=== PATIENT | female | born 1955 | race Caucasian/White ===

== ENCOUNTER → 2016-08-10 16:26 | Outpatient (CLI) | payer MEDICAID ==
[2016-05-16 20:58] VITALS: BMI 24.1
[~2016-08-10 16:26] MED LIST: AMITRIPTYLINE H50 MG PO; ASPIRIN325 MG PO; ATARAX 25 MG TA25 MG PO; BAYER CHEWABLE81 MG PO; CATAPRES0.1 MG PO; DULERA 100 MCG8.8 GM INH; HYDROCHLOROTHIA25 MG PO; HYDROCODONE-APA1 TAB PO; ISOSORBIDE MONO30 M1; ISOSORBIDE MONO30 M1 PO; Imdur PO; LEVAQUIN500 MG PO; LISINOPRIL-HCTZ1 T13 PO; LOPRESSOR25 MG PO; METOPROLOL TART50 MG PO; NEURONTIN 300300 MG PO; NITROSTAT0.4 MG SL; NORVASC5 MG PO; PLAVIX75 MG PO; PRILOSEC20 MG PO; PROTONIX40 MG PO; SOMA350 MG PO; VENTOLIN HFA18 GM INH; XANAX0.25 MG PO; ZANAFLEX4 MG PO
== END | disposition home or self-care (01) ==
LOC: D.MRI 16:00
DX: M75.102 Unspecified rotator cuff tear or rupture of left shoulder, not specified as traumatic (principal)

== ENCOUNTER → 2016-08-21 12:50 | Outpatient (CLI) | payer MEDICAID ==
[2016-05-16 20:58] VITALS: BMI 24.1
== END | disposition home or self-care (01) ==
LOC: D.MRI 12:50
DX: M54.12 Radiculopathy, cervical region (principal)

== ENCOUNTER 2016-08-29 19:24 | Emergency (ER) | payer MEDICAID ==
[2016-05-16 20:58] VITALS: BMI 24.1
== END 2016-08-30 00:27 | disposition home or self-care (01) ==
LOC: D.ER 19:24
DX: R11.2 Nausea with vomiting, unspecified (principal); M19.91 Primary osteoarthritis, unspecified site; S46.912A Strain of unspecified muscle, fascia and tendon at shoulder and upper arm level, left arm, initial encounter; X58.XXXA Exposure to other specified factors, initial encounter; Y93.89 Activity, other specified; Y92.89 Other specified places as the place of occurrence of the external cause; M19.90 Unspecified osteoarthritis, unspecified site; F17.200 Nicotine dependence, unspecified, uncomplicated

== ENCOUNTER 2016-11-27 19:22 | Observation (INO) | payer MEDICAID ==
[~2016-11-27] VITALS: Ht 162.6 cm; Wt 61.8 kg
--- NOTE | ~2016-11-27 | HEMODYNAMI ---
PATIENT:IDALIA DALAL MEDICAL RECORD: [id number] : 51 LOCATION:[facility] D.6 ADMISSION DATE: 11/27/16 Generatedon:11/30/20169:02 Patient name: IDALIA DALAL Patient #: [id number] SSN: [id number] : 1955 Date of study: 11/30/2016 Page: Of Hemodynamic Procedure Report Patient Data Patient Demographics Procedure consent was obtained First Name: IDALIA Gender: Female Last Name: KATLIN : 1955 [facility] Initial: K Age: 61 year(s) Patient #: [id number] Race: SSN: [id number] Additional ID: [id number] Contact details Address: [address] [place] [address] State: [place] City: [facility] Zip code: [address] Past Medical History History of disease Date Diagnosis Comments CAD Allergies Allergen Reaction Date Comments Reported Codeine 05/13/2014 Other allergy 03/29/2015 BUSPAR, LYRICA IMMUNIZATIONS Other allergy 05/17/2016 Iodine, Bispar, Lyrica Iodine 11/30/2016 Codeine 11/30/2016 Other allergy 11/30/2016 BUSPIRONE (BUSPAR), INFLUENZA VIRUS VACCINE, PNEUMOCOCCAL VACCINE, DIAZAPAM, PREGABALIN (LYRICA) Admission Admission Data Admission Date: 11/27/2016 Admission Time: 21:26 Room #: D.2116 Height (in.): 64 BSA: 1.6 (m2) Height (cm.): 162.56 BMI: 21.46 (kg/m2) Weight (lbs.): 125 Weight (kg.): 56.7 Lab Results Lab Result Date: 11/30/2016 Lab Result Time: 0:00 Biochemistry Name Units Result Min Max BUN mg/dl 8 --(*---)-- 7 18 Creatinine mg/dl 0.7 --(*---)-- 0.6 1.3 CBC Name Units Result Min Max Hemoglobin g/dl 11.4 *-(----)-- 13.5 17.5 Procedure Procedure Types Cath Procedure Diagnostic Procedure [facility] w/Coronaries FFR/IVUS Intra-Coronary IVUS Initial Miscellaneous Procedures Moderate Sedation up to 30 minutes Procedure Description Procedure Date Procedure Date: 11/30/2016 Procedure Start Time: 8:36 Procedure End Time: 9:02 Procedure Staff Name Function Keon Francisco MD Performing Physician Saida Singh RN Nurse Burak Nieto RT Monitor Mukund Nicholas RT Scrub Procedure Data Cath Procedure Fluoroscopy Diagnostic fluoroscopy Total fluoroscopy Time: 3 time: 3 min min Diagnostic fluoroscopy Total fluoroscopy dose: 307 dose: 307 mGy mGy Contrast Material Contrast Material Type Amount (ml) Isovue 300 91 Entry Location Entry Primary Successful Side Size Upsize Upsize Entry Closure Succes sful Closure Location (Fr) 1 (Fr) 2 (Fr) Remarks Device Remarks Femoral Right 5 Fr 6 Fr Exoseal artery Short Estimated blood loss: 10 ml Diagnostic catheters Device Type Used For End Catheter Placement Cordis 5Fr JL 4.0 Procedure Catheter (MP) Cordis 5Fr 3DRC Catheter Procedure (MP) Cordis 5Fr Pigtail Procedure Catheter (MP) Procedure Complications No complications Procedure Medications Medication Administration Route Dosage Oxygen NC 2 l/min Heparin Flush Bag added to field 2 bags (1000units/500ml NS) Lidocaine 2% added to field 20 Versed I.V. 1 mg Fentanyl I.V. 50 mcg Versed I.V. 1 mg Fentanyl I.V. 50 mcg Versed I.V. 0.5 mg Fentanyl I.V. 50 mcg Heparin Bolus I.V. 5700 units Hemodynamics Rest BSA: 1.6 (m2) HGB: 11.4 (g/dl) O2 Consumption: Estimated: 154.76 (ml/min) O2 Con sumption indexed: Estimated:96.72 (ml/min/m) Heart Rate: 77 (bpm) Pressure Samples Time Site Value (mmHg) Purpose Heart Use Rate(bpm) 8:40 AO 108/58(80) Snapshot 86 8:44 LV 115/-14,6 Snapshot 90 8:45 AO 120/55(81) Pullback 87 8:45 LV 121/-11,5 Pullback 87 8:49 AO 101/50(73) Snapshot 88 Gradients Valve Time Site 1 Site 2 Mean SEP/DFP Peak To Heart Use (mmHg) (sec/min) Peak Rate (mmHg) (bpm) Aortic 8:45 LV AO 13 9 1 87 121/-11,5 120/55(81) Calculations Valve P-P Mean Valve Index Valve Source Name Gradient Area Flow (cm2) Aortic 1 13 1 13 Snapshots Pre Cath Intra NCS Post Cath Vital Signs Time Heart Resp SPO2 etCO2 [id number] NIBP (mmHg) Rhythm Pain Status Sed ation Rate (ipm) (%) (mmHg) (mmHg) Level (bpm) 8:22:42 75 16 99 0 0 139/82(109) NSR 5 (11) , Very 10( A) distressing 8:26:54 80 16 99 0 0 138/78(99) NSR 5 (11) , Very 10( A) distressing 8:31:10 77 16 100 0 0 117/62(104) NSR 2 (11) , 10( A) Uncomfortable 8:35:16 76 16 98 0 0 131/67(90) NSR 0 (11) , No 10( A) pain 8:39:28 78 18 96 0 0 119/65(87) NSR 0 (11) , No 9(A ) pain 8:43:35 87 17 97 0 0 122/62(95) NSR 0 (11) , No 9(A ) pain 8:47:43 88 17 94 0 0 116/67(90) NSR 0 (11) , No 9(A ) pain 8:51:53 86 19 96 0 0 108/57(83) NSR 0 (11) , No 9(A ) pain 8:55:57 86 17 98 0 0 116/64(89) NSR 0 (11) , No 9(A ) pain 8:58:49 84 18 97 0 0 120/65(89) NSR 0 (11) , No 9(A ) pain Medications Time Medication Route Dose Verified Delivered Reason Notes Effectiveness by by 8:21:03 Oxygen NC 2 Keon Saida Per physician l/min Luis Antonio Singh RN 8:21:15 Heparin Flush added 2 Keon Keon used for Bag to bags Luis Antonio Francisco MD procedure (1000units/500ml field NS) 8:21:29 Lidocaine 2% added 20ml Keon Keon used for to vial Luis Antonio Francisco MD procedure field 8:29:50 Versed I.V. 1 mg Keon Saida for sedation Luis Antonio Singh RN 8:29:57 Fentanyl I.V. 50 Keon Saida for sedation mcg Luis Antonio Singh RN 8:31:42 Versed I.V. 1 mg Keon Saida for sedation Luis Antonio Singh RN 8:31:44 Fentanyl I.V. 50 Keon Saida for sedation mcg Luis Antonio Singh RN 8:36:21 Versed I.V. 0.5 Keon Saida for sedation mg Luis Antonio Singh RN 8:36:29 Fentanyl I.V. 50 Keon Saida for sedation mcg Luis Antonio Singh RN 8:47:01 Heparin Bolus I.V. 5700 Keon Saida for dose units Luis Antonio Singh RN anticoagulation verified wtih dr francisco Procedure Log Time Note 8:00:40 Burak GILLETTE(R) sent for patient. Start room use. 8:05:40 Time tracking: Regular hours 8:05:45 Plan of Care:Hemodynamics will remain stable., Cardiac rhythm will remain stable., Comfort level will be maintained., Respiratory function will remain adequate., Patient/ family verbilizes understanding of procedure., Procedure tolerated without complication., Recovers from procedure without complications.. 8:06:09 H&P Date Dictated: 11/29/2016 Within 30 days and on chart.. 8:06:12 Is the patient allergic to Iodine/contrast media? Yes. 8:06:14 Was the patient premedicated? Yes 8:06:22 Lab results completed and on chart. 8:14:38 ACC Patient presents with Unstable Angina CCS Anginal Class 3--Marked limitation of physical activity, angina occurs with ordinary activity.. 8:14:40 Diagnostic Cath status Urgent 8:14:45 Patient received from PCU to CCL 1 Alert and oriented. Tansferred to table in Supine position. 8:14:46 Warm blankets applied, and demetrius hugger turned on for patient comfort. 8:14:46 Correct patient and procedure confirmed by team. 8:14:47 Signed procedure consent form obtained from patient. 8:14:49 ECG and BP/O2 sat monitors applied to patient. 8:17:25 Pre-procedure instructions explained to patient. 8:17:26 Pre-op teaching completed and patient verbalized understanding. 8:17:29 Family unavailable. 8:17:32 Patient NPO since Midnight. 8:17:36 Is patient on blood thinner?No 8:17:38 Patient diabetic? Yes. 8:17:38 If diabetic: On Metformin? Yes 8:17:53 Last dose of Metformin unknown. 8:21:03 Oxygen 2 l/min NC was administered by Saida Singh RN; Per physician; 8:21:15 Heparin Flush Bag (1000units/500ml NS) 2 bags added to field was administered by Keon Francisco MD; used for procedure; 8:21:29 Lidocaine 2% 20ml vial added to field was administered by eKon Francisco MD; used for procedure; 8:21:32 Vital chart was started 8:22:37 Patient not . Patient is over age 55. 8:22:41 Baseline sample Acquired. 8:23:08 Rhythm: sinus rhythm 8:23:11 Full Disclosure recording started 8:23:17 Previous problem with sedation/anesthesia? No ? 8:23:18 Snore? Yes 8:23:19 Sleep apnea? Yes 8:23:20 Deviated septum? No 8:23:21 Opens mouth fully? Yes 8:23:21 Sticks out tongue? Yes 8:23:29 Airway obstruction? Yes COPD, Asthma 8:23:33 Dentures? Yes IN 8:23:38 Pre procedure: right dorsailis pedis pulse 1+ Palpable, but thready & weak; easily obliterated 8:23:57 Unable to go radial due to broken arm. 8:24:01 Patient pain scale 0/10 ?. 8:25:01 IV patent on arrival in the right chest with 0.9% NaCl at [facility]. 8:25:53 Lab Result : BUN 8 mg/dl 8:25:53 Lab Result : Hemoglobin 11.4 g/dl 8:25:53 Lab Result : Creatinine 0.7 mg/dl 8:25:58 Right groin area was prepped with chlora-prep and draped in sterile fashion 8:25:59 Alarms reviewed by R. N. 8:26:00 Sharps counted by scrub and verified by R.N. 8:29:15 --------ALL STOP TIME OUT------ 8:29:16 Final Timeout: patient, procedure, and site verified with staff and physician. All members of the team are in agreement. 8:29:18 Right groin site verified by team. 8:29:21 Physical assessment completed. ASA score P 2 - A patient with mild systemic disease as per Keon Francisco MD. 8:29:25 Sedation plan: IV Moderate Sedation Versed, Fentanyl 8:29:50 Versed 1 mg I.V. was administered by Saida Singh RN; for sedation; 8:29:57 Fentanyl 50 mcg I.V. was administered by Saida Singh RN; for sedation; 8:31:33 Patient allergic to Iodine 8:31:42 Versed 1 mg I.V. was administered by Saida Singh RN; for sedation; 8:31:42 Patient allergic to Codeine 8:31:44 Fentanyl 50 mcg I.V. was administered by Saida Singh RN; for sedation; 8:33:36 Patient allergic to Other allergy BUSPIRONE (BUSPAR), INFLUENZA VIRUS VACCINE, PNEUMOCOCCAL VACCINE, DIAZAPAM, PREGABALIN (LYRICA) 8:36:21 Versed 0.5 mg I.V. was administered by Saida Singh RN; for sedation; 8:36:29 Fentanyl 50 mcg I.V. was administered by Saida Singh RN; for sedation; 8:36:40 Procedure started. 8:36:46 Local anesthetic to right femoral artery with Lidocaine 2% by Keon Francisco MD.INITIAL ACCESS ONLY 8:36:48 Zero performed for pressure channel P1 8:36:57 Use device set Femoral Dx 8:36:59 Tegaderm 4 x 4 opened to sterile field. 8:37:00 Acist Hand Control opened to sterile field. 8:37:00 Acist Manifold opened to sterile field. 8:37:02 Acist Syringe opened to sterile field. 8:37:02 Bag Decanter opened to sterile field. 8:37:02 Medline Cath Pack opened to sterile field. 8:37:03 Terumo 5Fr Vale Sheath opened to sterile field. 8:37:03 St Fazal 260cm J .035 wire opened to sterile field. 8:37:04 Diagnostic Infinity 5Fr Multipack catheter opened to sterile field. 8:37:23 Patient Height : 64 cm 8:37:25 Patient Weight : 125 kg 8:38:56 A 5 Fr sheath was inserted into the Right Femoral artery 8:39:49 A Cordis 5Fr JL 4.0 Catheter (MP) was advanced over the wire and used for Procedure. 8:40:43 LCA angiography performed. 8:41:52 Catheter exchanged over wire. 8:41:57 A Cordis 5Fr 3DRC Catheter (MP) was advanced over the wire and used for Procedure. 8:42:32 RCA angiography performed. 8:42:36 Catheter exchanged over wire. 8:42:56 Terumo 6Fr Vale Sheath opened to sterile field. 8:42:56 Clean Engines Helm 2 J-tip 300cm 0.014 guide wir opened to sterile field. 8:42:57 High Pressure Extension Tubing (Luis Antonio) opened to sterile field. 8:42:57 Merit BasixCompak Inflation Kit opened to sterile field. 8:42:57 [place] Eag[place] IVUS Catheter opened to sterile field. 8:43:04 A Cordis 5Fr Pigtail Catheter (MP) was advanced over the wire and used for Procedure. 8:44:51 LV angiography performed. 8:45:02 LV gram done using SERNA 8:45:09 EF : 60 % 8:45:11 LV hemodynamics recorded. 8:45:14 Injector settings: Ml/sec: 10, Volume: 20, 8:45:16 Catheter exchanged over wire. 8:45:59 Cordis 6FR XBLAD 3.5 guide catheter opened to sterile field. 8:46:58 Sheath upsized to a 6 Fr Short. 8:47:01 Heparin Bolus 5700 units I.V. was administered by Saida Singh RN; for anticoagulation; dose verified wtih dr francisco 8:47:09 6 Fr XBLAD 3.5 guide catheter was inserted over the wire 8:48:16 BMW wire advanced. 8:49:39 Wire advanced across lesion. 8:50:02 IVUS catheter advanced over wire. 8:52:03 IVUS pass to LAD lesion performed. 8:52:05 IVUS catheter removed over wire. 8:55:44 Wire removed. 8:55:45 Guide catheter removed. 8:55:51 Cordis 6Fr Exoseal opened to sterile field. 8:56:01 Sheath removed intact; hemostasis achieved with Exoseal to the Right Femoral artery. 8:56:04 Procedure ended.(Physican Out) 8:56:23 Fluoroscopy time 03.00 minutes. 8:56:28 Fluoroscopy dose: 307 mGy 8:56:28 Flurop Dose total: 307 8:56:31 Contrast amount:Isovue 300 91ml. 8:56:40 Sharps counted by scrub and verified by R.N. 8:57:01 Insertion/operative site no bleeding no hematoma. 8:57:07 Post-op/insertion site Right Femoral artery dressed using a 4 x 4 and Tegaderm. 8:57:08 Post Procedure Pulses reassessed and unchanged 8:57:11 Post-procedure physical assessment completed. ASA score P 2 - A patient with mild systemic disease as per Keon Francisco MD. 8:57:14 Post procedure rhythm: unchanged. 8:57:16 Estimated blood loss: 10 ml 8:57:18 Post procedure instruction explained to patient.Patient verbalizes understanding. 8:57:19 Patient needs reinforcement of post procedure teaching. 8:57:57 Procedure type changed to Cath procedure, Diagnostic procedure, LHC, LHC w/Coronaries, FFR/IVUS, Intra-Coronary IVUS Initial, Miscellaneous Procedures, Moderate Sedation up to 30 minutes 8:58:05 Procedure Complication : No complications 8:58:33 Procedure and supply charges have been captured, reviewed, submitted and are correct. 9:02:24 Vital chart was stopped 9:02:25 See physician's report for complete and final results. 9:02:28 Report given to PCU. 9:02:32 Patient transfered to PCU with Bed. 9:02:34 Procedure ended. 9:02:34 Full Disclosure recording stopped 9:02:39 End room use (Document Last) Device Usage Item Name Manufacture Quantity Catalog Hospital Part Current Minimal L ot# / Number Charge Number Stock Stock Serial# Code Tegaderm 4 3M 1 [id number] [id number] 750863 793674 5 x 4 Acist Hand Acist 1 69496 699488 745721 345237 5 Control Medical Systems Inc Acist Acist 1 49668 475894 428709 410767 5 Manifold Medical Systems Inc Acist Acist 1 73033 730138 197576 333633 20 Syringe Medical Systems Inc Bag Microtek 1 2002S 952145 26522 197228 5 Decanter Medical Inc. Medline Cardinal 1 [id number] 385096 31477 211134 5 Cath Pack Health Terumo 5Fr Terumo 1 [id number] 670950 877363 748030 [address]al St Fazal 1 349123 547437 659958 294389 30 260cm J .035 wire Diagnostic Cardinal 1 [id number] 859591 55541 437099 30 Infinity Health 5Fr Multipack catheter Cordis 5Fr Cardinal 1 635363 5 JL 4.0 Health Catheter (MP) Cordis 5Fr Cardinal 1 099621 5 3DRC Health Catheter (MP) Terumo 6Fr Terumo 1 GPH006 873868 168308 136210 40 Vale Sheath Dan BMW Dan 1 [id number] 008566 725933 817829 5 Helm 2 Vascular J-tip 300cm 0.014 guide wir High Merit 1 [id number] 274878 45346 586598 10 Pressure Medical Extension Tubing (Francisco) Merit Merit 1 EN3300 283950 732634 961026 15 Achieve X Medical Inflation Kit [place]ton [place] 1 [id number] 154258 421180 145806 8 [place] IVUS Catheter Cordis 5Fr Cardinal 1 032473 5 Pigtail Health Catheter (MP) Cordis 6FR Cardinal 1 [id number] 567618 238160 272202 10 XBLAD 3.5 Health guide catheter Cordis 6Fr Cardinal 1 EX600 801337 727359 319564 10 [facility] Signature Audit [place] Stage Time Signature Unsigned Intra-Procedure 11/30/2016 Burak Nieto 9:02:52 AM RT(R) Signatures Monitor : Burak Nieto RT Signature : Date : Time : [facility] [address] [place] [address]
[2016-11-27 20:13] LABS: BASOPHILS 0.5 % (0-2); EOSINOPHILS 3.3 % (0-7); HEMATOCRIT 35.2 % (36.0-48.0); HEMOGLOBIN 11.3 g/dL (12-16); IMMATURE GRANULOCYTES 0.1 % (0-5); LYMPHOCYTES 45.8 % (15-50); MCH 26.3 pg (26.0-34.0); MCHC 32.1 g/dL (31.0-37.0); MCV 82.1 fL (80.0-100.0); MEAN PLATELET VOLUME 10.8 fL (7.4-10.4); MONOCYTES 7.9 % (2-11); NEUTROPHILS 42.4 % (40-80); RBC 4.29 10x6/uL (4.00-5.40); RDW 16.1 % (11.5-14.5); WBC 8.6 10x3/uL (4.8-10.8)
[2016-11-27 20:29] LABS: ALBUMIN 3.1 g/dL (3.4-5.0); ALKALINE PHOSPHATASE 138 U/L (46-116); ALT (SGPT) 87 U/L (10-68); BILIRUBIN - TOTAL 0.37 mg/dL (0.2-1.3); CALC OSMOLALITY 275 mosm/kg (275-300); CALCIUM 8.7 mg/dL (8.5-10.1); CARBON DIOXIDE 23.8 mmol/L (21.0-32.0); CHLORIDE - SERUM 105 mmol/L (98-107); CREATININE - SERUM 0.7 mg/dL (0.6-1.3); GLUCOSE 103 mg/dL (74-106); POTASSIUM - SERUM 3.2 mmol/L (3.5-5.1); PROTEIN - SERUM 7.9 g/dL (6.4-8.2); SODIUM 139 mmol/L (136-145); UREA NITROGEN 8 mg/dL (7-18); eGFR NON AFRICAN AMERICAN 90 mL/min (90-120)
[2016-11-27 20:37] LABS: PLATELET COUNT 139 10x3/uL (130-400)
[2016-11-27 20:40] LABS: CHOL - HDL RATIO 3.8 ratio (2.3-4.1); CHOLESTEROL, TOTAL 135 mg/dL (0-200); CKMB 0.5 U/L (0.0-3.6); CREATINE KINASE 53 UL (21-215); HDL CHOLESTEROL 36 mg/dL (32-96); LDL CHOLESTEROL 69 mg/dL (0-100); LDL-HDL RATIO 1.9 ratio (1.5-3.5); TRIGLYCERIDE 152 mg/dL (30-200); TROPONIN-I < 0.017 ng/mL (0.000-0.060)
[2016-11-28 01:26] LABS: CKMB 0.5 U/L (0.0-3.6); CREATINE KINASE 52 UL (21-215)
[2016-11-28 01:27] LABS: TROPONIN-I < 0.017 ng/mL (0.000-0.060)
--- NOTE | 2016-11-28 02:19 | NUR ---
PT C/O CHEST PAIN, CHARLIE HAS NITRO TRANSDERMAL PATCH ON. REQUESTED PAIN MED FOR PATIENT. ORDERS RECIEVED.
[2016-11-28 06:38] LABS: CKMB 0.3 U/L (0.0-3.6); CREATINE KINASE 42 UL (21-215)
[2016-11-28 06:45] LABS: TROPONIN-I < 0.017 ng/mL (0.000-0.060)
[2016-11-28 07:55] VITALS: BP 113/62; Ht 162.6 cm; Wt 61.8 kg
[2016-11-28 08:00] VITALS: BP 141/66
[2016-11-28 11:51] LABS: ALKALINE PHOSPHATASE 130 U/L (46-116); ALT (SGPT) 83 U/L (10-68); BILIRUBIN - TOTAL 0.41 mg/dL (0.2-1.3); CALC OSMOLALITY 279 mosm/kg (275-300); CALCIUM 8.8 mg/dL (8.5-10.1); CARBON DIOXIDE 21.9 mmol/L (21.0-32.0); CHLORIDE - SERUM 107 mmol/L (98-107); CREATININE - SERUM 0.7 mg/dL (0.6-1.3); GLUCOSE 108 mg/dL (74-106); POTASSIUM - SERUM 3.6 mmol/L (3.5-5.1); PROTEIN - SERUM 7.4 g/dL (6.4-8.2); SODIUM 141 mmol/L (136-145); UREA NITROGEN 8 mg/dL (7-18); eGFR NON AFRICAN AMERICAN 90 mL/min (90-120)
[2016-11-28 12:00] VITALS: BP 114/51
[2016-11-28 12:33] LABS: CKMB 0.3 U/L (0.0-3.6); CREATINE KINASE 39 UL (21-215)
[2016-11-28 12:34] LABS: TROPONIN-I < 0.017 ng/mL (0.000-0.060)
--- NOTE | 2016-11-28 13:37 | NUR ---
TELEMETRY SR. CALL LIGHT IN REACH. EKG COMPLETED AT BS. WILL CONT. PLAN OF CARE.
[2016-11-28 16:00] VITALS: BP 115/78
--- NOTE | 2016-11-28 19:00 | NUR ---
INITIAL ROUNDS MADE. PT SITTING UP IN BED WATCHING TV WITH FAMILY AT BEDSIDE. NO NEEDS OR C/O VOICED AT THIS TIME. REQUESTING PAIN SHOT WHEN DUE. CALL LIGHT IN REACH. WILL CONT TO MONITOR.
[2016-11-28 21:41] VITALS: BP 128/77
[2016-11-29 01:03] VITALS: BP 142/71
--- NOTE | 2016-11-29 03:03 | NUR ---
RESTING WELL WITH EYES CLOSED, CONT TO MONITOR.
[2016-11-29 05:36] VITALS: BP 127/64
[2016-11-29 06:58] LABS: BASOPHILS 0.3 % (0-2); EOSINOPHILS 3.5 % (0-7); HEMATOCRIT 35.1 % (36.0-48.0); HEMOGLOBIN 11.4 g/dL (12-16); IMMATURE GRANULOCYTES 0.2 % (0-5); LYMPHOCYTES 47.1 % (15-50); MCH 26.6 pg (26.0-34.0); MCHC 32.5 g/dL (31.0-37.0); MCV 81.8 fL (80.0-100.0); MEAN PLATELET VOLUME 10.8 fL (7.4-10.4); MONOCYTES 7.2 % (2-11); NEUTROPHILS 41.7 % (40-80); PLATELET COUNT 127 10x3/uL (130-400); RBC 4.29 10x6/uL (4.00-5.40)
[2016-11-29 07:22] LABS: ALBUMIN 2.8 g/dL (3.4-5.0); ALKALINE PHOSPHATASE 131 U/L (46-116); ALT (SGPT) 86 U/L (10-68); BILIRUBIN - TOTAL 0.38 mg/dL (0.2-1.3); CALC OSMOLALITY 274 mosm/kg (275-300); CALCIUM 8.5 mg/dL (8.5-10.1); CARBON DIOXIDE 24.9 mmol/L (21.0-32.0); CHLORIDE - SERUM 104 mmol/L (98-107); CREATININE - SERUM 0.7 mg/dL (0.6-1.3); GLUCOSE 106 mg/dL (74-106); POTASSIUM - SERUM 4.1 mmol/L (3.5-5.1); PROTEIN - SERUM 6.9 g/dL (6.4-8.2); SODIUM 138 mmol/L (136-145); UREA NITROGEN 10 mg/dL (7-18); eGFR NON AFRICAN AMERICAN 90 mL/min (90-120)
[2016-11-29 08:00] VITALS: BP 138/64
--- NOTE | 2016-11-29 08:58 | NUR ---
CONSENTS SIGNED FOR [facility]. MORPHINE GIVEN FOR C/O C/P. WILL CONT. PLAN OF CARE.
[2016-11-29 12:00] VITALS: BP 132/65
[2016-11-29 19:00] VITALS: BP 142/63
--- NOTE | 2016-11-29 20:03 | NUR ---
RESUMED CARE OF PT, LYING IN BED RESPIRATIONS EVEN AND UNLABORED ON ROOM AIR. MORPHINE GIVEN IVP FOR CHEST PAIN 7:10. 79 SR ON TELEMETRY. RIGHT BREAST SALINE LOCKED. NO FURTHER NEEDS AT THIS TIME. CALL LIGHT IN REACH. SEE NURSE ASSESSMENT.
[2016-11-30] VITALS: BP 146/66
--- NOTE | 2016-11-30 03:11 | NUR ---
FLARE WORKER AT BEDSIDE TO OBTAIN VITALS, CALL LIGHT IN REACH. WILL CONTINUE TO MONITOR.
[2016-11-30 04:00] VITALS: BP 128/56
[2016-11-30 05:07] LABS: BASOPHILS 0.1 % (0-2); EOSINOPHILS 0 % (0-7); HEMATOCRIT 35.1 % (36.0-48.0); HEMOGLOBIN 11.3 g/dL (12-16); IMMATURE GRANULOCYTES 0.3 % (0-5); LYMPHOCYTES 17.5 % (15-50); MCH 26.4 pg (26.0-34.0); MCHC 32.2 g/dL (31.0-37.0); MEAN PLATELET VOLUME 11.4 fL (7.4-10.4); MONOCYTES 0.6 % (2-11); NEUTROPHILS 81.5 % (40-80); RBC 4.28 10x6/uL (4.00-5.40); RDW 15.4 % (11.5-14.5); WBC 6.8 10x3/uL (4.8-10.8)
[2016-11-30 05:10] LABS: PLATELET COUNT 153 10x3/uL (130-400)
[2016-11-30 05:20] LABS: ANION GAP 12.5 mmol/L (8-16); BILIRUBIN - TOTAL 0.39 mg/dL (0.2-1.3); CALCIUM 9.1 mg/dL (8.5-10.1); CARBON DIOXIDE 25.9 mmol/L (21.0-32.0); POTASSIUM - SERUM 4.4 mmol/L (3.5-5.1); PROTEIN - SERUM 7.9 g/dL (6.4-8.2)
[2016-11-30 05:29] LABS: CREATININE - SERUM 0.9 mg/dL (0.6-1.3)
--- NOTE | 2016-11-30 06:38 | NUR ---
NO CHANGES FROM PREVIOUS ASSESSMET, CALL LIGHT IN REACH. WILL CONTINUE TO MONITOR.
[2016-11-30 08:15] VITALS: BP 99/63
== END 2016-11-30 18:05 | disposition home or self-care (01) ==
LOC: D.ER 19:22 → D.M2 21:26 → OBSVTIME 21:26 → D.M2 11-28 00:04
PROVIDERS: Emergency Medicine; ADMIT Internal Medicine Cardiovascular Disease
DX: I25.110 Atherosclerotic heart disease of native coronary artery with unstable angina pectoris (principal); Z95.5 Presence of coronary angioplasty implant and graft; J44.9 Chronic obstructive pulmonary disease, unspecified; I11.0 Hypertensive heart disease with heart failure; I50.9 Heart failure, unspecified; Z86.73 Personal history of transient ischemic attack (TIA), and cerebral infarction without residual deficits; K74.60 Unspecified cirrhosis of liver; F41.9 Anxiety disorder, unspecified; F32.9 Major depressive disorder, single episode, unspecified

== ENCOUNTER 2016-12-20 14:03 | Emergency (ER) | payer MEDICAID ==
[2016-11-28 07:55] VITALS: BMI 21.5
[2016-12-20 14:46] LABS: BASOPHILS 0.2 % (0-2); EOSINOPHILS 0.9 % (0-7); HEMATOCRIT 39.4 % (36.0-48.0); HEMOGLOBIN 13.2 g/dL (12-16); IMMATURE GRANULOCYTES 0.2 % (0-5); LYMPHOCYTES 21.6 % (15-50); MCHC 33.5 g/dL (31.0-37.0); MCV 80.7 fL (80.0-100.0); MEAN PLATELET VOLUME 10.7 fL (7.4-10.4); MONOCYTES 5.3 % (2-11); NEUTROPHILS 71.8 % (40-80); RBC 4.88 10x6/uL (4.00-5.40); RDW 16.2 % (11.5-14.5); WBC 12.4 10x3/uL (4.8-10.8)
[2016-12-20 14:47] LABS: PLATELET COUNT 188 10x3/uL (130-400)
[2016-12-20 14:55] LABS: APTT 30.4 SECONDS (22.8-39.4); INR 1.14 (0.85-1.17); PROTIME 14.5 SECONDS (11.6-15.0)
[2016-12-20 15:12] LABS: APPEARANCE CLEAR (CLEAR); BILIRUBIN NEGATIVE (NEGATIVE); COLOR YELLOW (YELLOW); GLUCOSE NEGATIVE (NEGATIVE); KETONE NEGATIVE (NEGATIVE); LEUKOCYTE ESTERASE NEGATIVE (NEGATIVE); NITRITE NEGATIVE (NEGATIVE); PROTEIN TRACE mg/dL (NEGATIVE); UROBILINOGEN NORMAL (NORMAL)
[2016-12-20 15:17] LABS: ALBUMIN 3.2 g/dL (3.4-5.0); ALKALINE PHOSPHATASE 156 U/L (46-116); ALT (SGPT) 63 U/L (10-68); BILIRUBIN - TOTAL 0.54 mg/dL (0.2-1.3); CALC OSMOLALITY 278 mosm/kg (275-300); CALCIUM 8.3 mg/dL (8.5-10.1); CARBON DIOXIDE 22.1 mmol/L (21.0-32.0); CHLORIDE - SERUM 103 mmol/L (98-107); CREATINE KINASE 39 UL (21-215); CREATININE - SERUM 0.7 mg/dL (0.6-1.3); GLUCOSE 135 mg/dL (74-106); LIPASE 131 U/L (73-393); POTASSIUM - SERUM 3.2 mmol/L (3.5-5.1); PROTEIN - SERUM 8.3 g/dL (6.4-8.2); SODIUM 140 mmol/L (136-145); UREA NITROGEN 8 mg/dL (7-18); eGFR NON AFRICAN AMERICAN 90 mL/min (90-120)
[2016-12-20 15:24] LABS: UDS - AMPHET NEGATIVE QUAL (NEGATIVE); UDS - BARB NEGATIVE QUAL (NEGATIVE); UDS - BENZO NEGATIVE QUAL (NEGATIVE); UDS - COCAINE NEGATIVE QUAL (NEGATIVE); UDS - METH NEGATIVE QUAL (NEGATIVE); UDS - OPIATE POSITIVE QUAL (NEGATIVE); UDS - PCP NEGATIVE QUAL (NEGATIVE); UDS - THC NEGATIVE QUAL (NEGATIVE)
[2016-12-20 15:48] LABS: CKMB 0.2 U/L (0.0-3.6); TROPONIN-I 0.055 ng/mL (0.000-0.060)
== END 2016-12-20 17:49 | disposition home or self-care (01) ==
LOC: D.ER 14:03
PROVIDERS: Emergency Medicine
DX: K52.9 Noninfective gastroenteritis and colitis, unspecified (principal); E87.6 Hypokalemia; K21.9 Gastro-esophageal reflux disease without esophagitis; J44.9 Chronic obstructive pulmonary disease, unspecified; G40.909 Epilepsy, unspecified, not intractable, without status epilepticus; G47.00 Insomnia, unspecified; R00.0 Tachycardia, unspecified

== ENCOUNTER → 2016-12-29 15:29 | Outpatient (CLI) | payer MEDICAID ==
[2016-11-28 07:55] VITALS: BMI 21.5
== END | disposition home or self-care (01) ==
LOC: D.MRI 12-26 10:00
DX: M75.42 Impingement syndrome of left shoulder (principal)

== ENCOUNTER 2017-01-27 03:32 | Inpatient (IN) | payer MEDICAID ==
[~2017-01-27] VITALS: Ht 162.6 cm; Wt 68.1 kg
--- NOTE | ~2017-01-27 | HEMODYNAMI ---
PATIENT:IDALIA DALAL MEDICAL RECORD: [id number] : 51 LOCATION[id number] ADMISSION DATE: 01/27/17 Generatedon:01/30/201710:43 Patient name: IDALIA DALAL Patient #: [id number] SSN: [id number] : 1955 Date of study: 01/30/2017 Page: Of Hemodynamic Procedure Report Patient Data Patient Demographics Procedure consent was obtained First Name: IDALIA Gender: Female Last Name: KATLIN : 1955 [facility] Initial: K Age: 61 year(s) Patient #: [id number] Race: SSN: [id number] Additional ID: [id number] Contact details Address: [address] [place] [address] State: [place] City: [facility] Zip code: [address] Past Medical History History of disease Date Diagnosis Comments CAD Allergies Allergen Reaction Date Comments Reported Codeine 05/13/2014 Other allergy 03/29/2015 BUSPAR, LYRICA IMMUNIZATIONS Other allergy 05/17/2016 Iodine, Bispar, Lyrica Iodine 11/30/2016 Codeine 11/30/2016 Other allergy 11/30/2016 BUSPIRONE (BUSPAR), INFLUENZA VIRUS VACCINE, PNEUMOCOCCAL VACCINE, DIAZAPAM, PREGABALIN (LYRICA) Admission Admission Data Admission Date: 01/27/2017 Admission Time: 5:38 Room #: D.2124 Lab Results Lab Result Date: 01/30/2017 Lab Result Time: 5:45 Biochemistry Name Units Result Min Max BUN mg/dl 24 --(----)-* 7 18 Creatinine mg/dl 1 --(--*-)-- 0.6 1.3 CBC Name Units Result Min Max Hematocrit % 31.7 *-(----)-- 42 54 Hemoglobin g/dl 10.3 *-(----)-- 13.5 17.5 Procedure Procedure Types Cath Procedure Diagnostic Procedure LHC LHC w/Coronaries PCI Procedure Coronary Stent Initial Miscellaneous Procedures Moderate Sedation up to 30 minutes Procedure Description Procedure Date Procedure Date: 01/30/2017 Procedure Start Time: 10:25 Procedure End Time: 10:42 Procedure Staff Name Function Andrew Billingsley MD Performing Physician Burak Nieto RT Scrub Glenny White RT Scrub Gabrielle Weathers RN Nurse Negro Abdul RT Monitor Procedure Data Cath Procedure Fluoroscopy Diagnostic fluoroscopy Total fluoroscopy Time: 3.4 time: 3.4 min min Diagnostic fluoroscopy Total fluoroscopy dose: 263 dose: 263 mGy mGy Contrast Material Contrast Material Type Amount (ml) Isovue 300 71 Entry Location Entry Primary Successful Side Size Upsize Upsize Entry Closure Succes sful Closure Location (Fr) 1 (Fr) 2 (Fr) Remarks Device Remarks Femoral Left 5 Fr 6 Fr Exoseal artery Short Estimated blood loss: 10 ml Diagnostic catheters Device Type Used For End Catheter Placement Cordis 5Fr Pigtail Procedure Catheter (MP) Cordis 5Fr JL 4.0 Procedure Catheter (MP) Cordis 5Fr 3DRC Catheter Procedure (MP) Procedure Complications No complications Procedure Medications Medication Administration Route Dosage Oxygen NC 2 l/min Lidocaine 2% added to field 20 Heparin Flush Bag added to field 2 bags (1000units/500ml NS) 0.9% NaCl I.V. 100 ml/hr Versed I.V. 1 mg Fentanyl I.V. 50 mcg Versed I.V. 1 mg Fentanyl I.V. 50 mcg Versed I.V. 1 mg Fentanyl I.V. 50 mcg Heparin Bolus I.V. 4000 units Hemodynamics Rest HGB: 10.3 (g/dl) Heart Rate: 100 (bpm) Pressure Samples Time Site Value (mmHg) Purpose Heart Use Rate(bpm) 10:27 LV 77/55,50 Snapshot 106 Snapshots Pre Cath Intra NCS Post Cath Vital Signs Time Heart Resp SPO2 etCO2 [id number] NIBP Rhythm Pain Sedation Rate (ipm) (%) (mmHg) (mmHg) (mmHg) Status Level (bpm) 9:58:52 108 14 98 0 0 104/67(75) NSR 0 (11) 10(A) , No pain 10:02:49 112 19 96 0 0 97/67(78) NSR 0 (11) 10(A) , No pain 10:06:45 104 23 96 0 0 94/63(77) NSR 0 (11) 10(A) , No pain 10:10:43 99 22 97 0 0 90/57(74) NSR 0 (11) 10(A) , No pain 10:14:38 109 15 93 0 0 91/57(69) NSR 0 (11) 10(A) , No pain 10:18:34 112 13 94 0 0 91/60(74) NSR 0 (11) 10(A) , No pain 10:22:29 112 14 95 0 0 91/56(71) NSR 0 (11) 10(A) , No pain 10:26:27 101 13 98 0 0 85/53(65) NSR 0 (11) 9(A) , No pain 10:30:22 109 15 94 0 0 89/53(65) NSR 0 (11) 9(A) , No pain 10:34:18 114 15 93 0 0 87/56(68) NSR 0 (11) 10(A) , No pain 10:38:12 118 15 94 0 0 98/61(71) NSR 0 (11) 10(A) , No pain 10:42:09 116 11 92 0 0 94/63(71) NSR 0 (11) 10(A) , No pain Medications Time Medication Route Dose Verified Delivered Reason Notes Effectiveness by by 10:06:22 Oxygen NC 2 Andrew Buffie used for l/min Jose Cruz Weathers RN procedure 10:06:32 Lidocaine 2% added 20ml Andrew Andrew for local to vial Jose Cruz Billingsley MD anesthetic field 10:06:38 Heparin Flush added 2 Andrew Andrew used for Bag to bags Jose Cruz Billingsley MD procedure (1000units/500ml field NS) 10:06:46 0.9% NaCl I.V. 100 Andrew Buffie Per physician ml/hr Jose Cruz Weathers RN 10:17:16 Versed I.V. 1 mg Andrew Buffie for sedation Jose Cruz Weathers RN 10:17:26 Fentanyl I.V. 50 Andrew Buffie for sedation mcg Jose Cruz Weathers RN 10:23:41 Versed I.V. 1 mg Andrew Buffie for sedation Jose Cruz Weathers RN 10:23:46 Fentanyl I.V. 50 Andrew Buffie for sedation mcg Jose Cruz Weathers RN 10:26:29 Versed I.V. 1 mg Andrew Anthony for sedation Jose Cruz Weathers RN 10:26:33 Fentanyl I.V. 50 Andrew Anthony for sedation mcg Jose Cruz Weathers RN 10:29:37 Heparin Bolus I.V. 4000 Andrew Anthony for verifi ed units Jose Cruz Weathers RN anticoagulation with dr billingsley Procedure Log Time Note 9:25:41 Informed consent obtained and on chart 9:26:02 Gabrielle Weathers RN sent for patient. Start room use. 9:26:04 Time tracking: Regular hours 9:26:07 Plan of Care:Hemodynamics will remain stable., Cardiac rhythm will remain stable., Comfort level will be maintained., Respiratory function will remain adequate., Patient/ family verbilizes understanding of procedure., Procedure tolerated without complication., Recovers from procedure without complications.. 9:27:52 Lab Result : Hemoglobin 10.3 g/dl 9:27:52 Lab Result : Hematocrit 31.7 % 9:27:52 Lab Result : BUN 24 mg/dl 9:27:52 Lab Result : Creatinine 1 mg/dl 9:47:07 Patient received from PCU to CCL 1 Alert and oriented. Tansferred to table in Supine position. 9:47:09 Warm blankets applied, and demetrius hugger turned on for patient comfort. 9:47:09 Correct patient and procedure confirmed by team. 9:47:10 ECG and BP/O2 sat monitors applied to patient. 9:57:40 Vital chart was started 9:57:51 Baseline sample Acquired. 9:57:57 Rhythm: sinus rhythm 9:57:59 Full Disclosure recording started 9:59:06 H&P Date Dictated: 01/29/2017 Within 30 days and on chart., H&P Addendum completed by physician on day of procedure. (MUST COMPLETE FOR ALL OUTPATIENTS). 9:59:06 Pre-procedure instructions explained to patient. 9:59:07 Pre-op teaching completed and patient verbalized understanding. 9:59:21 Family in patients room. 9:59:22 Patient NPO since Midnight. 9:59:24 Is the patient allergic to Iodine/contrast media? No. 9:59:27 Is patient on blood thinner?Yes 9:59:30 ACC The patient was administered the following blood thiners within the last 24 hours: ACCPlavix 9:59:32 Patient diabetic? Yes. 9:59:33 If diabetic: On Metformin? Yes 9:59:48 Last dose of Metformin is unknown. 9:59:50 Patient not . Patient is over age 55. 9:59:54 Previous problem with sedation/anesthesia? No ? 9:59:55 Snore? Yes 9:59:56 Sleep apnea? Yes 9:59:57 Deviated septum? No 9:59:58 Opens mouth fully? Yes 9:59:59 Sticks out tongue? Yes 10:00:09 Airway obstruction? Yes COPD, Asthma 10:00:13 Dentures? Yes OUT 10:00:17 Pre procedure: left dorsailis pedis pulse 1+ Palpable, but thready & weak; easily obliterated 10:00:39 Patient pain scale 7/10 physician notified.. 10:01:14 IV patent on arrival in left forearm with 0.9% NaCl at O. 10:01:16 Lab results completed and on chart. 10:01:19 Left groin area was prepped with chlora-prep and draped in sterile fashion 10:01:20 Alarms reviewed by R. N. 10:01:21 Sharps counted by scrub and verified by R.N. 10:02:23 Use device set Femoral Dx 10:02:25 Tegaderm 4 x 4 opened to sterile field. 10:02:26 Acist Manifold opened to sterile field. 10:02:27 Acist Hand Control opened to sterile field. 10:02:28 Acist Syringe opened to sterile field. 10:02:29 Bag Decanter opened to sterile field. 10:02:29 Medline Cath Pack opened to sterile field. 10:02:29 Terumo 5Fr Pinedale Sheath opened to sterile field. 10:02:30 St Fazal 260cm J .035 wire opened to sterile field. 10:02:31 Diagnostic Infinity 5Fr Multipack catheter opened to sterile field. 10:06:22 Oxygen 2 l/min NC was administered by Gabrielle Weathers RN; used for procedure; 10:06:32 Lidocaine 2% 20ml vial added to field was administered by Andrew Billingsley MD; for local anesthetic; 10:06:38 Heparin Flush Bag (1000units/500ml NS) 2 bags added to field was administered by Andrew Billingsley MD; used for procedure; 10:06:46 0.9% NaCl 100 ml/hr I.V. was administered by Gabrielle Weathers RN; Per physician; 10:10:17 Zero performed for pressure channel P1 10:15:30 Physician arrived 10:15:30 --------ALL STOP TIME OUT------ 10:15:31 Final Timeout: patient, procedure, and site verified with staff and physician. All members of the team are in agreement. 10:15:32 Left groin site verified by team. 10:15:35 Physical assessment completed. ASA score P 2 - A patient with mild systemic disease as per Andrew Billingsley MD. 10:15:37 Sedation plan: IV Moderate Sedation Versed, Fentanyl 10:17:16 Versed 1 mg I.V. was administered by Gabrielle Weathers RN; for sedation; 10:17:26 Fentanyl 50 mcg I.V. was administered by Gabrielle Weathers RN; for sedation; 10:23:41 Versed 1 mg I.V. was administered by Gabrielle Weathers RN; for sedation; 10::46 Fentanyl 50 mcg I.V. was administered by Gabrielle Weathers RN; for sedation; 10:25:04 Procedure started. 10:25:11 Local anesthetic to left femerol artery with Lidocaine 2% by Andrew Billingsley MD.INITIAL ACCESS ONLY 10:26:09 A 5 Fr sheath was inserted into the Left Femoral artery 10:26:29 Versed 1 mg I.V. was administered by Gabrielle Weathers RN; for sedation; 10:26:32 A Cordis 5Fr Pigtail Catheter (MP) was advanced over the wire and used for Procedure. 10:26:33 Fentanyl 50 mcg I.V. was administered by Gabrielle Weathers RN; for sedation; 10:27:12 LV angiography performed. 10:27:13 LV gram done using SERNA 10:27:18 Injector settings: Ml/sec: 102, Volume: 20, 10:27:25 EF : 40 % 10:27:26 Catheter exchanged over wire. 10:27:29 A Cordis 5Fr JL 4.0 Catheter (MP) was advanced over the wire and used for Procedure. 10:27:49 LCA angiography performed. 10:28:23 Catheter exchanged over wire. 10:28:28 A Cordis 5Fr 3DRC Catheter (MP) was advanced over the wire and used for Procedure. 10:29:10 RCA angiography performed. 10:29:29 Dan Whisper J 300cm 0.014 guide wire opened to sterile field. 10:29:29 Cordis 6FR XBLAD 3.5 guide catheter opened to sterile field. 10:29:30 Insmed BasixCompak Inflation Kit opened to sterile field. 10:29:36 [place] Eagleye IVUS Catheter opened to sterile field. 10:29:37 Heparin Bolus 4000 units I.V. was administered by Gabrielle Weathers RN; for anticoagulation; verified with dr billingsley 10:29:44 Catheter removed. 10:29:53 Terumo 6Fr Pinedale Sheath opened to sterile field. 10:30:08 Sheath upsized to a 6 Fr Short. 10:30:16 6 Fr xblad 3.5 guide catheter was inserted over the wire 10:31:14 whisper wire advanced. 10:31:16 Wire advanced across lesion. 10:31:21 IVUS catheter advanced over wire. 10:31:52 IVUS pass to LAD lesion performed. 10:33:34 IVUS catheter removed over wire. 10:35:25 Inflation Number: 1 A WeLiketronic Integrity 3.0 X 15 stent was prepped and advanced across the Mid LAD. The stent was deployed at 11 GONZALEZ for 0:10 (min:sec). 10:35:55 Stent catheter was removed intact over wire. 10:35:55 Wire removed. 10:35:56 Guide catheter removed. 10:36:04 Cordis 6Fr Exoseal opened to sterile field. 10:36:14 Sheath removed intact; hemostasis achieved with Exoseal to the Left Femoral artery. 10:36:15 Procedure ended.(Physican Out) 10:39:15 Fluoroscopy time 03.40 minutes. 10:39:19 Fluoroscopy dose: 263 mGy 10:39:19 Flurop Dose total: 263 10:41:00 Contrast amount:Isovue 300 71ml. 10:41:02 Sharps counted by scrub and verified by R.N. 10:41:03 Insertion/operative site no bleeding no hematoma. 10:41:07 Post-op/insertion site Left Femoral artery dressed using a 4 x 4 and Tegaderm. 10:41:11 Post left femerol artery:stable, soft, clean and dry 10:41:13 Post Procedure Pulses reassessed and unchanged 10:41:16 Post-procedure physical assessment completed. ASA score P 2 - A patient with mild systemic disease as per Andrew Billingsley MD. 10:41:17 Post procedure rhythm: unchanged. 10:41:20 Estimated blood loss: 10 ml 10:41:23 Post procedure instruction explained to patient.Patient verbalizes understanding. 10:41:23 Patient needs reinforcement of post procedure teaching. 10:41:58 Procedure type changed to Cath procedure, Diagnostic procedure, LHC, LHC w/Coronaries, PCI procedure, Coronary Stent Initial, Miscellaneous Procedures, Moderate Sedation up to 30 minutes 10:42:32 Procedure and supply charges have been captured, reviewed, submitted and are correct. 10:42:32 Vital chart was stopped 10:42:36 Procedure Complication : No complications 10:42:38 See physician's report for complete and final results. 10:42:40 Report given to PCU. 10:42:43 Patient transfered to PCU with Stretcher. 10:42:47 Procedure ended. 10:42:47 Full Disclosure recording stopped 10:42:50 End room use (Document Last) Intervention Summary Intervention Notes Time ActionType Lesion and Equipment Action# Pressure Duration Attributes Used 10:35:25 Place stent Mid LAD Medtronic 1 11 00:10 Integrity 3.0 X 15 stent Device Usage Item Name Manufacture Quantity Catalog Hospital Part Current Minimal L ot# / Number Charge Number Stock Stock Serial# Code Tegaderm 4 3M 1 [id number] [id number] 5 x 4 Acist Acist 1 79555 [id number] [id number] 253508 5 Manifold Medical Systems Inc Acist Hand Acist 1 88986 292515 664828 559796 5 Control Medical Systems Inc Acist Acist 1 29688 634838 735110 026320 20 Syringe Medical Systems Inc Bag Microtek 1 2002S 806540 34429 953838 5 DecMailsuite Inc. Medline Cardinal 1 [id number] 475004 99236 795690 5 Cath [facility] Terumo 5Fr Terumo 1 [id number] 013416 465381 619786 [address] St Fazal 1 851153 642150 838619 245443 30 260cm J .035 wire Diagnostic Cardinal 1 [id number] 755902 00377 680316 30 Infinity Health 5Fr Multipack catheter Cordis 5Fr Cardinal 1 565481 5 Pigtail Health Catheter (MP) Cordis 5Fr Cardinal 1 903334 5 JL 4.0 Health Catheter (MP) Cordis 5Fr Cardinal 1 846415 5 3DRC Health Catheter (MP) Dan Dan 1 [id number] 911263 912570 784168 5 Whisper J Vascular 300cm 0.014 guide wire Cordis 6FR Cardinal 1 [id number] 952518 964831 821382 10 XBLAD 3.5 Health guide catheter [facility] 1 [id number] 712906 263824 375570 15 aroundtheway Medical Inflation Kit Mont[place] 1 [id number] 795098 489238 190866 8 [place] IVUS Catheter Terumo 6Fr Terumo 1 [id number] 477783 427380 914179 40 Pinedale Sheath Medtronic Medtronic 1 [id number] 533678 610207 1 0 [id number] Integrity 3.0 X 15 stent Cordis 6Fr Cardinal 1 EX600 297082 186144 543136 10 [facility] Cerahelix Signature Audit [place] Stage Time Signature Unsigned Intra-Procedure 01/30/2017 Negro Abdul 10:43:05 AM RT(R) Signatures Monitor : Negro Abdul RT Signature : Date : Time : [id number] [place] [address]
[2017-01-27 04:16] LABS: BASOPHILS 0.1 % (0-2); EOSINOPHILS 1.8 % (0-7); HEMATOCRIT 29.1 % (36.0-48.0); HEMOGLOBIN 9.7 g/dL (12-16); IMMATURE GRANULOCYTES 0.3 % (0-5); LYMPHOCYTES 30.6 % (15-50); MCH 28.4 pg (26.0-34.0); MCHC 33.3 g/dL (31.0-37.0); MCV 85.3 fL (80.0-100.0); MEAN PLATELET VOLUME 10.4 fL (7.4-10.4); MONOCYTES 9.8 % (2-11); NEUTROPHILS 57.4 % (40-80); PLATELET COUNT 201 10x3/uL (130-400); RBC 3.41 10x6/uL (4.00-5.40); RDW 16.1 % (11.5-14.5); WBC 7.2 10x3/uL (4.8-10.8)
[2017-01-27 04:28] LABS: ALBUMIN 2.2 g/dL (3.4-5.0); ALKALINE PHOSPHATASE 92 U/L (46-116); ALT (SGPT) 36 U/L (10-68); BILIRUBIN - TOTAL 0.62 mg/dL (0.2-1.3); CALC OSMOLALITY 269 mosm/kg (275-300); CALCIUM 7.5 mg/dL (8.5-10.1); CARBON DIOXIDE 20.4 mmol/L (21.0-32.0); CHLORIDE - SERUM 104 mmol/L (98-107); CREATININE - SERUM 0.9 mg/dL (0.6-1.3); GLUCOSE 150 mg/dL (74-106); POTASSIUM - SERUM 3.6 mmol/L (3.5-5.1); PROTEIN - SERUM 6.9 g/dL (6.4-8.2); SODIUM 135 mmol/L (136-145); UREA NITROGEN 5 mg/dL (7-18); eGFR NON AFRICAN AMERICAN 67 mL/min (90-120)
[2017-01-27 04:47] LABS: CKMB 0.3 U/L (0.0-3.6); CREATINE KINASE 55 UL (21-215); MAGNESIUM - SERUM 1.4 mg/dL (1.8-2.4); PRO BNP 4308 pg/mL (0-125)
[2017-01-27 04:52] LABS: TROPONIN-I 1.108 ng/mL (0.000-0.060)
[2017-01-27] MEDS ORDERED: GABAPENTIN100 MG PO (06:40)
[2017-01-27] MEDS ORDERED: OMEPRAZOLE40 MG PO (06:42)
--- NOTE | 2017-01-27 06:42 | NUR ---
PT JUST ARRIVED FROM ER. VITALS TAKEN AND CURRENTLY STABLE. PT A&O LYING BACK IN BED RESTING QUIETLY. MED REC AND QUICK START COMPLETED. WILL REPORT OFF TO DAYSHIFT NURSE FOR FURTHER ORDERS/NEEDS.
[2017-01-27 06:55] LABS: TROPONIN-I 1.078 ng/mL (0.000-0.060)
--- NOTE | 2017-01-27 07:20 | NUR ---
ASSESSMENT DONE. DENIES NEEDS.
[2017-01-27 08:00] VITALS: BP 97/61
--- NOTE | 2017-01-27 09:11 | NUR ---
RESPS IN BED WITH CALL LIGHT IN REACH. WILL CONT. PLAN OF CARE.
[2017-01-27 09:12] VITALS: BP 91/61; BMI 21.8
[2017-01-27 12:00] VITALS: BP 99/63
[2017-01-27 12:08] VITALS: Ht 162.6 cm; Wt 68.1 kg
[2017-01-27 13:06] LABS: CKMB 0.4 U/L (0.0-3.6); CREATINE KINASE 50 UL (21-215)
[2017-01-27 13:07] LABS: TROPONIN-I 0.995 ng/mL (0.000-0.060)
[2017-01-27 16:42] VITALS: BP 81/53
--- NOTE | 2017-01-27 17:55 | NUR ---
WITHOUT CHANGES OR DISTRESS NOTED AT THIS TIME. DENIES NEEDS.
[2017-01-27 18:39] LABS: CKMB 0.4 U/L (0.0-3.6); CREATINE KINASE 42 UL (21-215)
[2017-01-27 18:42] LABS: TROPONIN-I 0.846 ng/mL (0.000-0.060)
[2017-01-27 19:00] VITALS: BP 98/62
--- NOTE | 2017-01-27 22:30 | NUR ---
INITIAL ROUNDS COMPLETED AT 1920 HRS. PT DENIED ANY DISCOMFORT. PAGED AT 1935 HRS. RETURNS PAGE AT 1999 HRS. ORDERS CLARIFIED. ASSESSMENT COMPLETED AT THAT TIME. VSS. SR PER CM HR 96. LUNGS DIMINISHED IN BASES BILAT. IV TO LFA SL. BRUISING NOTED TO L GROIN. ALVARADO. PALPABLE PERIPHERAL PULSES. PM FSBS 301 . 8 UNITS REG INSULIN GIVEN SUB-Q TO UPPER L ARM. PM MEDS GIVEN. PT IN SHOWER AT 2200 HRS. BED LINENS CHANGED WHILE PT IN SHOWER. OUT OF SHOWER AT 2235 HRS. PT STATES SHE FEELS MUCH IMPROVED. WILL CONTINUE TO MONITOR. SR UP X2, CALL LIGHT WITHIN REACH.
[2017-01-28] VITALS: BP 116/64
--- NOTE | 2017-01-28 00:06 | NUR ---
PT AWAKE; DENIES ANY DISCOMFORT. WILL CONTINUE TO MONITOR.
--- NOTE | 2017-01-28 02:23 | NUR ---
PT RESTING WITH EYES CLOSED. ON R SIDE. RESP EVEN AND REGULAR. SR UP X2, CALL LIGHT WITHIN REACH.
[2017-01-28 04:00] VITALS: BP 108/62
--- NOTE | 2017-01-28 04:06 | NUR ---
PT RESTING WITH EYES CLOSED. RESP EVEN AND REGULAR. SR UP X2,CALL LIGHT WITHIN REACH.
[2017-01-28 06:17] LABS: BASOPHILS 0 % (0-2); EOSINOPHILS 0 % (0-7); HEMATOCRIT 31.1 % (36.0-48.0); HEMOGLOBIN 10.3 g/dL (12-16); IMMATURE GRANULOCYTES 0.2 % (0-5); LYMPHOCYTES 7.9 % (15-50); MCH 28.1 pg (26.0-34.0); MCHC 33.1 g/dL (31.0-37.0); MCV 84.7 fL (80.0-100.0); MEAN PLATELET VOLUME 10.6 fL (7.4-10.4); NEUTROPHILS 90.9 % (40-80); PLATELET COUNT 223 10x3/uL (130-400); RBC 3.67 10x6/uL (4.00-5.40); RDW 15.6 % (11.5-14.5); WBC 6.1 10x3/uL (4.8-10.8)
[2017-01-28 06:34] LABS: INR 1.2 (0.85-1.17); PROTIME 15.1 SECONDS (11.6-15.0)
[2017-01-28 06:35] LABS: D-DIMER-QUANTITATIVE 1.34 ug/mLFEU (0.20-0.54)
--- NOTE | 2017-01-28 06:35 | NUR ---
VSS THROUGHOUT NIGHT. SR PER CM. PT STATED SHE HAD BACK PAIN AND HIP PAIN THAT WAS NOT RELIEVED WITH NORCO. PT NPO FOR AM CTA. AM FSBS 358. NO COVERAGE NPO. NEEDS MET; WILL CONTINUE TO MONITOR.
[2017-01-28 06:42] LABS: ALBUMIN 2.3 g/dL (3.4-5.0); BILIRUBIN - TOTAL 0.47 mg/dL (0.2-1.3); CALCIUM 7.8 mg/dL (8.5-10.1); CARBON DIOXIDE 20.7 mmol/L (21.0-32.0); MAGNESIUM - SERUM 1.4 mg/dL (1.8-2.4); PHOSPHOROUS 3.1 mg/dL (2.5-4.9); PROTEIN - SERUM 7.6 g/dL (6.4-8.2)
[2017-01-28 06:49] LABS: ANION GAP 17.3 mmol/L (8-16); CREATININE - SERUM 1.2 mg/dL (0.6-1.3)
[2017-01-28 06:50] LABS: TROPONIN-I 0.558 ng/mL (0.000-0.060)
--- NOTE | 2017-01-28 07:23 | NUR ---
ASSESSMENT DONE. DENIES NEEDS.
[2017-01-28 08:00] VITALS: BP 118/61
--- NOTE | 2017-01-28 09:25 | NUR ---
BACK FROM X-RAY. IV PATENT. CALL LIGHT IN REACH. WILL CONT. PLAN OF CARE.
[2017-01-28 12:04] VITALS: BP 99/56
[2017-01-28 16:00] VITALS: BP 110/55
--- NOTE | 2017-01-28 18:31 | NUR ---
WITHOUT CHANGES OR DISTRESS NOTED AT THIS TIME. DENIES NEEDS
--- NOTE | 2017-01-28 19:32 | NUR ---
INITIAL OUNDS COMLPLETED. PT DENIES ANY DISCOMFRT. WILL CONTINUE TO MONITOR.
[2017-01-28 20:00] VITALS: BP 104/57
--- NOTE | 2017-01-28 22:54 | NUR ---
ASSESSMENT COMPLETED AT [address] PER CM HR 118. IV TO LFA WITH NS AT 10CC/HR. IV PATENT. BRUISING NOTED TO R GROIN AND UPPER L SIDE. PT SOB WITH ACTIVITY. PT ALERT AND ORIENTED TO PERSON, PLACE AND TIME. PM FSBS 249. REGULAR INSULIN GIVEN SUB-Q PER S/S. PM MEDS GIVEN. PT CURERNTLY TALKING ON PHONE, WILL CONTINUE TO MONITOR.
[2017-01-29] VITALS (7 sets, daily range): BP systolic 90–110; BP diastolic 48–73
--- NOTE | 2017-01-29 00:21 | NUR ---
PT AWAKE, CONTINUES TO HAVE C/O BACK AND HIP PAIN. WILL CONTINUE TO MONITOR.
--- NOTE | 2017-01-29 02:36 | NUR ---
PT AWAKE; HAD C/O MIGRAINE. LIGHTS OUT AND COOL WASHCLOTH APPLIED TO FH. INFORMED NEXT NORCO AT 0400. WILL CONTINUE TO MONITOR.
--- NOTE | 2017-01-29 04:08 | NUR ---
NORCO 5/325 PO GIVEN FOR C/O MIGRAINE. ST PER CM HR 123. WILL CONTINUE TO MONITOR.
[2017-01-29 06:16] LABS: ANION GAP 14.4 mmol/L (8-16); CALCIUM 8.6 mg/dL (8.5-10.1); CREATININE - SERUM 0.9 mg/dL (0.6-1.3); MAGNESIUM - SERUM 1.6 mg/dL (1.8-2.4); POTASSIUM - SERUM 4.4 mmol/L (3.5-5.1)
--- NOTE | 2017-01-29 06:28 | NUR ---
PT STATES ESTEVEZ LESS SEVERE THIS AM. AM FSBS 193. 4 UNITS REG INSULIN GIVEN SUB-Q TO UPPER L ARM. NEEDS MET; WILL CONTIUE TO MONITOR.
--- NOTE | 2017-01-29 07:30 | NUR ---
RESTING QUIETLY DENIES ANY NEEDS OR DISCOMFORT AT THIS TIME NAD NOTED
--- NOTE | 2017-01-29 07:44 | NUR ---
ASSESSMENT DONE. DENIES NEEDS.
--- NOTE | 2017-01-29 16:57 | NUR ---
WITHOUT CHANGES NOTED AT THIS TIME. AT SIDE.
--- NOTE | 2017-01-29 20:40 | NUR ---
HS MEDS GIVEN WITH FR ICE WATER. BS 324, COVERED WITH 6 UNITS OF REGULAR INSULIN, WHICH IS HALF OF THE S/S DOSE, 1/2 OF THE S/S DOSE GIVEN DUE TO PT BEING NPO AFTER MN FOR CARDIAC CATH IN AM. HELD LONG ACTING INUSLIN, PT IN AGREEANCE WITH REASONING. NO NEEDS VOICED AT THIS TIME. BED LOW, CL IN REACH.
[2017-01-30] VITALS: BP 105/61
--- NOTE | 2017-01-30 00:09 | NUR ---
SOFT BOARDER AT BED SIDE TO OBTAIN VITALS.
--- NOTE | 2017-01-30 03:01 | NUR ---
PT RESTING IN BED WITH NO DISTRESS. RESPS EVEN/NONLABORED. MONITOR AND CPOC. CALL LIGHT IN REACH. BED LOW.
--- NOTE | 2017-01-30 03:09 | NUR ---
RESTING WITH EYES CLOSED, RESPERATIONS EVEN, NO S/S DISTRESS NOTED.
[2017-01-30 04:00] VITALS: BP 96/60
[2017-01-30 06:08] LABS: BASOPHILS 0 % (0-2); EOSINOPHILS 0 % (0-7); HEMATOCRIT 31.7 % (36.0-48.0); HEMOGLOBIN 10.3 g/dL (12-16); IMMATURE GRANULOCYTES 0.3 % (0-5); LYMPHOCYTES 13.7 % (15-50); MCH 28.1 pg (26.0-34.0); MCHC 32.5 g/dL (31.0-37.0); MCV 86.6 fL (80.0-100.0); MEAN PLATELET VOLUME 10.2 fL (7.4-10.4); RBC 3.66 10x6/uL (4.00-5.40); RDW 16.8 % (11.5-14.5)
[2017-01-30 06:09] LABS: PLATELET COUNT 335 10x3/uL (130-400); WBC 18.3 10x3/uL (4.8-10.8)
[2017-01-30 06:12] LABS: ANION GAP 13.6 mmol/L (8-16); CALCIUM 8.4 mg/dL (8.5-10.1); CARBON DIOXIDE 25.5 mmol/L (21.0-32.0); POTASSIUM - SERUM 4.1 mmol/L (3.5-5.1)
--- NOTE | 2017-01-30 06:24 | NUR ---
GONE TO XRAY BY CRISTHIAN.
--- NOTE | 2017-01-30 07:41 | NUR ---
ASSESSMENT COMPLETED. TELEMERTY SHOWS ST. LEFT WRIST IV, PATENT. DENIES ANY NEEDS. NPO FOR CATH. FAMILY AT BEDSIDE.
[2017-01-30 08:23] VITALS: BP 109/67
--- NOTE | 2017-01-30 09:20 | NUR ---
PRE OP FOR CATH
--- NOTE | 2017-01-30 10:52 | NUR ---
Patient Name: IDALIA DALAL Admission Status: ER Accout number: [id number] Admission Date: 01-27-2017 : 1955 Admission Diagnosis: Attending: CRYSTAL ROBLES Current LOS: 3 Anticipated DC Date: 01-31-2017 Planned Disposition: Home Primary Insurance: [place] Discharge Planning Comments: Patient Name: TAMMY HIGHTOWER Encounter No: [id number] : 12-26-1960 Primary Insurance: [place] Anticipated DC Date: Planned Disposition: Home DISCHARGE PLANNING NOTE: * Is the patient Alert and Oriented? Yes 0 * How many steps to enter\exit or inside your home? 2 0 * PCP DR. VELASQUEZ 0 * Pharmacy [facility] 0 * Preadmission Environment Home Alone 0 * ADLs Independent 0 * Equipment Cane Rolling Walker 0 * Other Equipment [facility] - MEDICAL EQUIPMENT PROVIDER 0 * List name and contact numbers for known caregivers / representatives who currently or will assist patient after discharge: PT'S CELL [phone] OR [phone] AMARA HEALY DTR, 0 * Community resources currently utilized None 0 * Please name any agencies selected above. NONE 0 * Additional services required to return to the preadmission environment? No 0 * Can the patient safely return to the preadmission environment? Yes 0 * Has this patient been hospitalized within the prior 30 days at any hospital? Yes 0 CM RECEIVED ORDER FOR OXYGEN TESTING. CM MET WITH PT IN ROOM TO DISCUSS DISCHARGE PLANNING AND NEEDS. PT REPORTS LIVING AT HOME INDEPENDENTLY AND ALONE; HOWEVER, PT PLANS TO DISCHARGE HOME WITH HER ADULT DAUGHTER. PT HAS A ROLLATER WALKER AND CANE; PT HAS HER GRANDMOTHER'S OLD WHEELCHAIR THAT SHE USES OUTSIDE TO PUSH THINGS AROUND IN BUT IT IS IN NOT CONDITION FOR PATIENT USE IS NEEDED; PT HAD OXYGEN FROM AN UNKNOWN COMPANY ABOUT 7 YEARS AGO, BUT THREW THE CONCENTRATOR AWAY WHEN IT STOPPED WORKING; PT STILL HAS POTABLE BOTTLES AT HOME THAT SHE HAS NOT BEEN USING. PT HAS NO MEDICAL EQUIPMENT PROVIDER PREFERENCE AND NO OUTSIDE SERVICES ASSISTING IN THE HOME. CM DISCUSSED AVAILABILITY OF HOME HEALTH, REHAB SERVICES AND MEDICAL EQUIPMENT. PT DENIES NEED OF REHAB SERVICES OR HOME HEALTH, ONLY WANTS OXYGEN SERVICE FOR HOME. PT REPORTS HER SON OR DAUGHTER WILL PICK HER UP FOR DISCHARGE HOME. CM DISCUSSED REQUIREMENT OF ARTERIAL BLOOD GAS TESTING FOR MEDICAID OXYGEN QUALIFICATION. PT'S DISCHARGE ADDRESS IS: [address] [place] [address], [place].[id number] CM CALLED [facility], , SPOKE TO WENDI WHO CHECKED AND FOUND PT'S OLD CONCENTRATOR WAS DELIVERED THREE YEARS AGO WITH NO DOCUMENTED PROBLEMS IN [facility]. CM INFORMED WENDI THAT THE CONCENTRATOR PREVIOUSLY DELIVERED WAS THROWN AWAY BY THE PT DUE TO NOT WORKING. [facility] WILL ARRANGE NEW OXYGEN WITH QUALIFYING SATURATIONS. CM AWAITING ARTERIAL BLOOD GAS TESTING FOR MEDICAID OXYGEN QUALIFICATION AND WILL ARRANGE WITH [facility] ONCE QUALIFYING BLOOD OXYGEN SATURATIONS ARE OBTAINED. Garment Fitter: Ridge Lomeli
--- NOTE | 2017-01-30 12:56 | NUR ---
PT LYING QUIETLY WITH EYES CLOSED. LEFT GROIN SOFT WITH DRSG DRY AND INTACT. PPP. DENIES ANY NEEDS.SR UP WITH CALL LIGHT IN REACH
--- NOTE | 2017-01-30 14:06 | NUR ---
Nutrition Follow Up: Pt reported that her appetite is decreased. She said that she was worried about her blood sugar being elevated and has been trying to decrease her po intake in order to lower it. RD explained that she needed to eat as much as she could and that not eating can cause her blood sugar to elevate. RD encouraged pt to increase po intake to maintain strength, etc. Pt had questions regarding liquid consistency and RD reminded her that [facility] rec honey thick liquids. She then was agreeable and stated that when she chokes it is "the worst feeling in the world." RD discussed changing diet to diabetic to aid in controlling glucose - pt agreed to this. She requested that thickened milk be sent on ice on tray so that it will be chilled when served. Pt is eating 64% meal avg on a AHA mech soft diet with honey thick liquids. Wt loss since admit noted. +BM 01/30/17. Labs reviewed - glucose elevated. Meds noted including Solu-Medrol. Will change diet to diabetic mech soft with honey thick liquids. RD following.
[2017-01-30 16:10] VITALS: BP 116/70
--- NOTE | 2017-01-30 18:12 | NUR ---
LYING QUIETLY. C/O SOME SOB. 02 SAT 94. . LEFT GRION SOFT WITH DRSG DRY AND INTACT. TELLEMERTY SHOWS ST 135. WILL MONITOR
[2017-01-30 19:00] VITALS: BP 112/61
--- NOTE | 2017-01-30 19:38 | NUR ---
ASSESSMENT COMPLETE, A&O. O2 AT 3 LITER VIA NC. RESPERATIONS LABORED AT THIS TIME, PT STATED THAT SHE HAD JUST GOTTEN BACK INTO BED FORM GOING TO THE BR. IV TO LEFT WIRST WITH NS AT KVO, SITE CLEAN AND DRY. DRSG TO LEFT GROIN C/D/I. NO SWELLING OR BLEEDING NOTED, NO HEMATOMA NOTED. PEDAL PULSES PRESENT. RT ALSO AT BED SIDE, UPDRAFT HELD AT THIS TIME DUE TO ELEVATED HR. WILL CONTINUE TO MONITOR CLOSELY, INFORMED PT THAT SHE HAS MEDICATION DUE SHORTLY THAT WILL HELP WITH AN ELEVATED HR, PT STATED UNDERSTANDING.
--- NOTE | 2017-01-30 20:42 | NUR ---
HS MEDS GIVEN WITH FRESH ICE WATER, BS 235, COVERED PER S/S. PT REFUSED LOVENOX, STATES THAT SHE HAS "COUGHED UP BLOOD", ASKED HER TO SAVE SPUTUM NEXT TIME SHE HAPPENS TO COUGH UP BLOOD. NORCO 1 TAB GIVEN FOR C/O GENERAL PAIN, RATES PAIN AT AN 8 ON PAIN CONTROL. NO OTHER NEEDS AT THIS TIME, BED LOW, CL IN REACH.
--- NOTE | 2017-01-30 22:27 | NUR ---
ATIVAN 0.25 MG GIVEN TO LEFT WRIST IV FOR S/S ANXIETY, SON AT BED SIDE.
--- NOTE | 2017-01-30 22:31 | NUR ---
PT ROCKING BACK IN FORTH IN BED, C/O THAT HER BACK IS HURTING AND THAT SHE CANT BREATH, ASKING IF SHE HAS ANYTHING ORDERED FOR ANXIETY, STATES THAT SHE NEEDS SOMETHING TO CALM HER DOWN, CALL PLACED TO BOB VELÁSQUEZ APN CONCRETE WORKER FOR DR ROBLES. ONE TIME ORDER GIVEN FOR ATIVAN 0.25 MG IVP.
--- NOTE | 2017-01-30 23:00 | NUR ---
PT STILL ROCKING BACK IN FORTH IN BED, VERY ANXIOUS, HR 136 ST, RT UNABLE TO GIVEN UPDRAFT DUE TO ELEVATED HR, CALL PLACED TO [place] TO NOTIFY OF CONTINOUS ELEVATED HR.
--- NOTE | 2017-01-30 23:04 | NUR ---
MORPHINE 4 MG GIVEN ORDERED FOR C/O PAIN TO BACK AND SIDE, RATES PAIN AT AN 8 ON PAIN SCALE. @ 23:29 CORDARONE 150 MG GIVEN OVER 15 MINUTES TO LEFT WRIST IV ORDERED FOR ST OF 138.
[2017-01-31] VITALS (7 sets, daily range): BP systolic 79–112; BP diastolic 48–71
--- NOTE | 2017-01-31 00:40 | NUR ---
DID NTO GIVE TREATMENT, PATIENTS HEARTRATE WAS ELEVATED TO HIGH FOR THE TREATMENT.
--- NOTE | 2017-01-31 02:25 | NUR ---
RESTING ON RIGHT SIDE, RESPERATIONS UNALBORED, 02 AT 3 LITERS VIA NC. SON ASLEEP AT BED SIDE.
--- NOTE | 2017-01-31 04:15 | NUR ---
RAIL DOWELING MACHINE OPERATOR AT BED SIDE TO OBTAIN VITALS, NO S/S DISTRESS NOTED.
[2017-01-31 05:54] LABS: HEMOGLOBIN 10.9 g/dL (12-16); MCH 28.2 pg (26.0-34.0); MCHC 31.1 g/dL (31.0-37.0); MCV 90.4 fL (80.0-100.0); MEAN PLATELET VOLUME 10.6 fL (7.4-10.4); PLATELET COUNT 431 10x3/uL (130-400); RBC 3.87 10x6/uL (4.00-5.40); RDW 17.2 % (11.5-14.5)
[2017-01-31 06:36] LABS: CALCIUM 9.3 mg/dL (8.5-10.1); CARBON DIOXIDE 19.2 mmol/L (21.0-32.0); POTASSIUM - SERUM 5.2 mmol/L (3.5-5.1)
--- NOTE | 2017-01-31 06:38 | NUR ---
ZOFRAN 4 MG GIVEN FOR C/O N&V.
--- NOTE | 2017-01-31 07:35 | NUR ---
AM ROUNDS- PT IN BED, WITH EYES CLOSED. RESP EVEN AND UNLABORED ON 3L. LT WRIST IV INFSUING LEVAQUIN AT 75CC/HR. BED LOW AND WHEELS LOCKED, BEDSIDE RAILS X2, CALL LIGHT IN REACH, NAD NOTED, WILL CONTINUE TO MONITOR.
--- NOTE | 2017-01-31 07:41 | NUR ---
Patient Name: IDALIA DALAL Encounter No: [id number] : 1955 Primary Insurance: MEDICAID [facility] [place] Date: 01-31-2017 Planned Disposition: Home DCP follow-up note: CM REVIEWED MEDICAL CHART, OBTAINED QUALIFYING ABG SATURATION TESTING FOR OXYGEN. CM FAXED REFERRAL FOR OXYGEN SERVICES TO [facility] AT [phone]. JAY TO ARRANGE HOME AND PORTABLE OXYGEN SERVICES FOR PT'S DISCHARGE HOME. CM TO CONTINUE TO FOLLOW AND ASSIST NEEDED. Ridge Lomeli, CASE MANAGEMENT
[2017-01-31 07:42] LABS: LYMPHOCYTES 16 % (15-50); MONOCYTES 13 % (2-11); NEUTROPHILS 71 % (40-80); PLATELET ESTIMATE INCREASED
[2017-01-31 07:43] LABS: HYPOCHROMASIA OCC; ROULEAUX 1+
--- NOTE | 2017-01-31 09:10 | NUR ---
AM MEDS GIVEN AT THIS TIME. EXCEPT K SINCE K TODAY IS 5.2. PT ALSO REFUSED THE LOVENOX INJECTION. PT STATES SHE IS NAUSEATED, BUT CANNOT HAVE ANYTHING UNTIL ABOUT 1230. ALSO ADMINSITERED NORCO 5MG FOR PAIN LEVEL OF 7/10. PT DENIES ANY OTHER NEEDS AT THIS TIME. CALL LIGHT IN REACH, NAD NOTED, WILL CONTINUE TO MONITOR.
[2017-01-31 09:16] LABS: IMMUNOGLOBULIN E 897 IU/mL (0-100)
[2017-01-31 10:17] LABS: ANA REFLEX - DIRECT Negative (Negative)
--- NOTE | 2017-01-31 11:07 | NUR ---
BLOOD SUGAR OF 132, NO COVERAGE NEEDED PER S/S. PT DENIES ANY NAUSEA AT THIS TIME. AND STATES PAIN LEVEL NOW 4/10. DENIES ANY NEEDS AT THIS TIME. CALL LIGHT IN REACH, NAD NOTED, WILL CONTINUE TO MONITOR.
--- NOTE | 2017-01-31 15:34 | NUR ---
IVPB CEFEPIME HUNG AT THIS TIME. PORTABLE OXYGEN DELIVERED TO PT AT THIS TIME. PT IN BED, DENIES ANY NEEDS AT THIS TIME. CALL LIGHT IN REACH, NAD NOTED, WILL CONTINUE TO MONITOR.
--- NOTE | 2017-01-31 16:58 | NUR ---
BLOOD SUGAR OF 186, 4UNTIS OF HUMULIN GIVEN PER S/S. PT C/O OF NUASEA, WILL PROVIDE PT WITH ZOFRAN ORDERED.
--- NOTE | 2017-01-31 21:30 | NUR ---
HS MEDS GIVEN WITH THICKEND APPLE JUICE, PT DENIES NEEDS AT THIS TIME, BED LOW, CL IN REACH, WILL CONT TO MONITOR.
--- NOTE | 2017-02-01 00:37 | NUR ---
LEGGER PRESS OPERATOR AT BEDSIDE TO OBTAIN VITALS, WILL CONTINUE WITH PLAN OF CARE.
--- NOTE | 2017-02-01 02:23 | NUR ---
RESTING WITH EYES CLOSED, RESPERATIONS EVEN, NO S/S DISTRESS NOTED.
[2017-02-01 04:00] VITALS: BP 94/65
[2017-02-01 05:36] LABS: BASOPHILS 0 % (0-2); EOSINOPHILS 0 % (0-7); HEMATOCRIT 32.2 % (36.0-48.0); HEMOGLOBIN 10.3 g/dL (12-16); IMMATURE GRANULOCYTES 0.2 % (0-5); LYMPHOCYTES 13.4 % (15-50); MCH 27.8 pg (26.0-34.0); MEAN PLATELET VOLUME 10.4 fL (7.4-10.4); MONOCYTES 6.2 % (2-11); NEUTROPHILS 80.2 % (40-80); RBC 3.71 10x6/uL (4.00-5.40); RDW 16.7 % (11.5-14.5)
[2017-02-01 05:53] LABS: MCV 86.8 fL (80.0-100.0); PLATELET COUNT 300 10x3/uL (130-400); WBC 12.6 10x3/uL (4.8-10.8)
[2017-02-01 06:10] LABS: ANION GAP 16.9 mmol/L (8-16); CALCIUM 8.8 mg/dL (8.5-10.1); CARBON DIOXIDE 21.2 mmol/L (21.0-32.0); CREATININE - SERUM 1.2 mg/dL (0.6-1.3)
[2017-02-01 06:15] LABS: POTASSIUM - SERUM 4.1 mmol/L (3.5-5.1)
[2017-02-01 07:00] VITALS: BP 108/65
--- NOTE | 2017-02-01 07:16 | NUR ---
AM ROUNDS PT SITTING IN BED, RECEIVING A UPDRAFT AT THIS TIME. RESP EVEN AND UNLABORED. NAD NOTED, BED LOW AND WHEELS LOCKED, BEDSIDE RAILS X2. LT WRIST IV SL. PT DENIES ANY NEEDS AT THIS TIME. CALL LIGHT IN REACH, WILL CONTINUE TO MONITOR.
--- NOTE | 2017-02-01 09:09 | NUR ---
AM MEDS GIVEN AT THIS TIME. PT IN BED, WATCHING TV. PT DENIES ANY NEEDS AT THIS TIME. CALL LIGHT IN REACH, NAD NOTED, WILL CONTINUE TO MONITOR.
--- NOTE | 2017-02-01 11:13 | NUR ---
BLOOD SUGAR OF 235, 10UNITS OF HUMULIN R PER S/S. PT DENIES ANY NEEDS AT THIS TIME. CALL LIGHT IN REACH, NAD NOTED, WILL CONTINUE TO MONITOR.
--- NOTE | 2017-02-01 12:46 | NUR ---
ADMINISTERD NORCO 5MG FOR PAIN LEVEL OF 9/10. PT IN BED, DENIES ANY OTHER NEEDS AT THIS TIME. CALL LIGHT IN REACH, NAD NOTED, WILL CONTINUE TO MONITOR.
[2017-02-01 12:48] VITALS: BP 84/53
[2017-02-01 13:00] VITALS: BP 90/54
--- NOTE | 2017-02-01 13:32 | NUR ---
JUAN JOSE MORRISSEY STUDENT WILNER AT BEDSIDE TO D/C LT WRIST IV, DUE TO IV LEAKING. TACKING STITCH REMOVER TO START NEW IV WITH JUAN JOSE INSTRUCTER TO SUPERVISE. PT DENIES ANY NEEDS AT THIS TIME. CALL LIGHT IN REACH, NAD NOTED, WILL CONTINUE TO MONITOR.
--- NOTE | 2017-02-01 15:42 | NUR ---
REHAB PRESCREENING CONSULT RECIEVED AND THE CHART HAS BEEN REVIEWED. SHE IS A GOOD IRF CANDIDATE, BUT IS [place] MEDICAID WHICH DOES NOT COVER ACUTE INPATIENT REHAB. DISCUSSED THIS WITH THE CM SHANNON EPPS. YANELIS BRYANT RN CLINICAL LIAISON, REHAB
--- NOTE | 2017-02-01 16:24 | NUR ---
Patient Name: IDALIA DALAL Encounter No: [id number] : 1955 Primary Insurance: MEDICAID [facility] [place] Date: 01-31-2017 Planned Disposition: Home WITH HOME HEALTH External Planned Provider: [facility] DCP follow-up note: CM RECEIVED ORDER FOR INPATIENT REHAB PRESCREENING. CM RECEIVED CALL FROM YANELIS OF [facility] INPATIENT [facility] WHO REPORTED THAT MEDICAID DOES NOT COVER INPATIENT REHAB SERVICES. CM MET WITH PT IN ROOM, DISCUSSED INPATIENT REHAB, [facility] AND HOME HEALTH THERAPY SERVICES. PT REPORTS HAVING ASSISTANCE OF DAUGHTER AT DISCHARGE AND WOULD LIKE HOME HEALTH PHYSICAL THERAPY WITH [facility], WHICH IS COVERED BY MEDICAID INSURANCE. PT ALSO WOULD LIKE ASSISTANCE WITH ARRANGING MEDICATIONS. CHOICE FOR [place] SIGNED. CM TO ARRANGE [facility] HEALTH, OBSERVATION AND ASSESSEMENT WELL PHYSICAL THERAPY, WITH DOCTOR AGREEMENT AND ORDERS. Ridge Lomeli, CASE MANAGEMENT
--- NOTE | 2017-02-01 16:47 | NUR ---
BLOOD SUGAR OF 209, 8UNITS OF HUMULIN R GIVEN PER S/S. PT DENIES ANY NEEDS AT THIS TIME. CALL LIGHT IN REACH, NAD NOTED, WILL CONTINUE TO MONITOR.
[2017-02-01 16:52] VITALS: BP 96/60
[2017-02-01 19:00] VITALS: BP 105/65
[2017-02-02] VITALS (8 sets, daily range): BP systolic 81–182; BP diastolic 42–73
--- NOTE | 2017-02-02 02:00 | NUR ---
PT RESTING WELL THIS SHIFT. NO C/O OR DISTRESS NOTED AT THIS TIME. WILL CONT TO MONITOR.
[2017-02-02 06:14] LABS: BASOPHILS 0 % (0-2); EOSINOPHILS 0 % (0-7); HEMATOCRIT 34.2 % (36.0-48.0); IMMATURE GRANULOCYTES 0.4 % (0-5); LYMPHOCYTES 16.9 % (15-50); MCH 27.9 pg (26.0-34.0); MCHC 32.2 g/dL (31.0-37.0); MCV 86.8 fL (80.0-100.0); MEAN PLATELET VOLUME 10.2 fL (7.4-10.4); MONOCYTES 6.1 % (2-11); NEUTROPHILS 76.6 % (40-80); PLATELET COUNT 308 10x3/uL (130-400); RBC 3.94 10x6/uL (4.00-5.40); RDW 16.7 % (11.5-14.5)
[2017-02-02 06:42] LABS: ANION GAP 15.5 mmol/L (8-16); CALCIUM 8.2 mg/dL (8.5-10.1); CARBON DIOXIDE 22.5 mmol/L (21.0-32.0); CREATININE - SERUM 1.1 mg/dL (0.6-1.3)
--- NOTE | 2017-02-02 07:15 | NUR ---
AM ROUNDS- PT IN BED, USING INCENTIVE SPIROMETER. PT REQUESTED A DIET SOTOMAYOR GRINDSTONE SODA. WILL PROVIDE PT WITH SOTOMAYOR GRINDSTONE SODA. PT DENIES ANY OTHER NEEDS AT THIS TIME. RESP EVEN AND UNLABORED ON 3L. LT FA IV SL AT THIS TIME. BED LOW AND WHEELS LOCKED, BEDSIDE RAILS X2, CALL LIGHT IN REACH, NAD NOTED, WILL CONTINUE TO MONITOR.
--- NOTE | 2017-02-02 08:48 | NUR ---
AM MEDS GIVEN AT THIS TIME. PT IN BED, DENIES ANY NEEDS, CALL LIGHT IN REACH, NAD NOTED, WILL CONTINUE TO MONITOR.
--- NOTE | 2017-02-02 14:51 | NUR ---
CEFEPIME IVBP HUNG AT THIS TIME. ADMINSITERED 5MG OF NORCO FOR PAIN LEVEL OF 9/10. PT IN BED, DENIEAS ANY OTHER NEEDS AT THIS TIME. CALL LIGHT IN REACH, NAD NOTED, WILL CONTINUE TO MONITOR.
--- NOTE | 2017-02-02 23:57 | NUR ---
INITIAL ROUNDS COMPLETED AT 1920 HRS. PT DENIED ANY DISCOMFORT. ASSESSMENT COMPLETED AT [address] PER CM HR 102. O2 3LNC. LUNGS DIMINISHED IN BASES BILAT. BRUISE NOTED TO R GROIN. IV TO LFA SL. IV PATENT. ALERT AND ORIENTED TO PERSON, PLACE AND TIME. PM FSBS 360. 16 UNITS REG INSULIN GIVEN SUB-Q TO UPPER L ARM PER S/S. SCHEDULED LANTUS 10 UNITS GIVEN SUB-Q TP UPPER L ARM. PM MEDS GIVEN WELL NORCO FOR C/O CHEST PAIN WITH COUGH. PT CURRENTLY RESTING WITH EYES CLOSED. RESP EVEN AND REGULAR SR UP X2, CALL LIGHT WITHIN REACH.
--- NOTE | 2017-02-03 01:46 | NUR ---
PT RESTING WITH EYES CLOSED. RESP EVEN AND REGULAR. SR UP X2, CALL LIGHT WITHIN REACH.
--- NOTE | 2017-02-03 03:56 | NUR ---
VSS. PT DENIES ANY DISCOMFORT. WILL CONTINUE TO MONITOR.
[2017-02-03 03:59] VITALS: BP 106/73
[2017-02-03 06:22] LABS: BASOPHILS 0 % (0-2); EOSINOPHILS 0.1 % (0-7); HEMATOCRIT 32.4 % (36.0-48.0); HEMOGLOBIN 10.4 g/dL (12-16); IMMATURE GRANULOCYTES 0.3 % (0-5); LYMPHOCYTES 16.1 % (15-50); MCH 27.6 pg (26.0-34.0); MCHC 32.1 g/dL (31.0-37.0); MCV 85.9 fL (80.0-100.0); MEAN PLATELET VOLUME 10.4 fL (7.4-10.4); MONOCYTES 5.8 % (2-11); NEUTROPHILS 77.7 % (40-80); PLATELET COUNT 294 10x3/uL (130-400); RBC 3.77 10x6/uL (4.00-5.40); RDW 16.4 % (11.5-14.5); WBC 15.1 10x3/uL (4.8-10.8)
[2017-02-03 06:32] LABS: ANION GAP 12.7 mmol/L (8-16); CALCIUM 8.5 mg/dL (8.5-10.1); CARBON DIOXIDE 25.6 mmol/L (21.0-32.0); POTASSIUM - SERUM 4.3 mmol/L (3.5-5.1)
--- NOTE | 2017-02-03 06:53 | NUR ---
VSS THROUGHOUT NIGHT. SR /ST PER CM. PT STATED NORCO HELPED CP. AM FSBS 147. NO COVERAGE NEEDED. NEEDS MET; WILL CONTINUE TO MONITOR.
--- NOTE | 2017-02-03 07:15 | NUR ---
RESTING QUIETLY RESP UINLABOREDNAD NOTED
--- NOTE | 2017-02-03 07:30 | NUR ---
ASSESSMENT COMPLETED. TELEMERTY SHOWS SR/ ST. O2 AT 3 L/M PER NC. RIGHT GROIN BRUISED AT CATH SITE. LUNGS DIMISHED. AWAKE AND ORIENTED. SR UP WITH CALL LIGHT IN REACH. EILL MONITOR
[2017-02-03 07:49] VITALS: BP 107/65
[2017-02-03 11:48] VITALS: BP 109/67
[2017-02-03 15:21] VITALS: BP 100/51
--- NOTE | 2017-02-03 16:28 | NUR ---
UP TO XRAY. NO NEEDS NOTED. CALL LIGHT IN REACH WITH SR UP. WILL MONITOR
[2017-02-03 19:00] VITALS: BP 96/62
--- NOTE | 2017-02-03 19:45 | NUR ---
INITIAL ROUNDS COMPLETED AT 1915 HRS. ASSESSMENT COMPLETED AT THAT TIME. IV TO LFA SL. O2 3LNC. LUNGS DIMINISHED IN BASES BILAT. ST PER CM HR 102. BRUISE TO R GROIN NOTED. WILL CONTINUE TO MONITOR. SR UP X2, CALL LIGHT WITHIN REACH.
--- NOTE | 2017-02-03 22:02 | NUR ---
PM MEDS GIVEN PER ORDERS. NORCO PO GIVEN. FOR C/O CHEST PAIN. WILL CONTINUE TO MONITOR.
--- NOTE | 2017-02-03 23:22 | NUR ---
PTAWAKE; DENIES ANY DISCOMFORT. WILL CONTINUE TO MONITOR.
[2017-02-04] VITALS: BP 97/54
--- NOTE | 2017-02-04 02:23 | NUR ---
PT HAD C/O NAUSEA AND CHEST /BACK PAIN. INFORMED PT THAT UNABLE TO GIVNE PAIN MEDS FOR ANOTHER 15 MINUTES. WILL CONTINUE TO MONITOR.
[2017-02-04 04:00] VITALS: BP 103/72
--- NOTE | 2017-02-04 04:39 | NUR ---
HOT BROTH WITH THICKIT GIVEN. PT STATES HEAT OF BROTH EASING HER CHEST PAIN. WILL CONTINUE TO MONITOR.
[2017-02-04 05:11] LABS: BASOPHILS 0 % (0-2); EOSINOPHILS 0 % (0-7); HEMOGLOBIN 10.2 g/dL (12-16); IMMATURE GRANULOCYTES 0.4 % (0-5); LYMPHOCYTES 11.4 % (15-50); MCH 27.3 pg (26.0-34.0); MCHC 31.9 g/dL (31.0-37.0); MCV 85.6 fL (80.0-100.0); MEAN PLATELET VOLUME 10.3 fL (7.4-10.4); MONOCYTES 3.8 % (2-11); NEUTROPHILS 84.4 % (40-80); PLATELET COUNT 298 10x3/uL (130-400); RBC 3.74 10x6/uL (4.00-5.40); RDW 16.4 % (11.5-14.5); WBC 16.8 10x3/uL (4.8-10.8)
[2017-02-04 05:23] LABS: ANION GAP 13.3 mmol/L (8-16); CARBON DIOXIDE 24.4 mmol/L (21.0-32.0)
[2017-02-04 05:30] LABS: POTASSIUM - SERUM 5.7 mmol/L (3.5-5.1)
--- NOTE | 2017-02-04 06:09 | NUR ---
VSS THROUGHOUT NIGHT. SR/ST PER CM. PT STATED NORCO AND HOT BROTH HELPED HER CHEST/L SIDE PAIN. NEEDS MET; WILL CONTINUE TO MONITOR.
--- NOTE | 2017-02-04 07:20 | NUR ---
REPORT RECIVED. PT RESTING QUIELY, ALERT AND ORIENTED X4. RR EVEN AND UNLABORED. PT DENIES NEEDS AT THIS TIME. INTRODUCED SELF AND PLACED NAME ON WHITE BOARD. WILL CTM.
[2017-02-04 08:13] VITALS: BP 109/68
[2017-02-04 11:43] LABS: ANION GAP 15.1 mmol/L (8-16); CALCIUM 8.2 mg/dL (8.5-10.1); CARBON DIOXIDE 24.1 mmol/L (21.0-32.0); CREATININE - SERUM 1.1 mg/dL (0.6-1.3)
[2017-02-04 11:44] LABS: POTASSIUM - SERUM 4.2 mmol/L (3.5-5.1)
[2017-02-04 11:58] VITALS: BP 103/65
[2017-02-04 15:40] VITALS: BP 101/60
--- NOTE | 2017-02-04 18:47 | NUR ---
PT RESTINGQ QUIETLY, RR EVEN AND UNLABORED. PT DENIES NEEDS AT THIS TIME, WILL GIVE REPORT ON PT CONDTION FOR THE DAY.
[2017-02-04 19:20] VITALS: BP 108/64
--- NOTE | 2017-02-04 19:58 | NUR ---
INITIAL ROUNDS COMPETEDA T 1919 HRS. PT DENIED ANY DISCOMFORT. ASSESSMENT COMPLETEDA T 1944 HRS. VSS. SR PER CM HR 100. IV TO LFA SL. LUNGS DIMINISHED IN BASES BILAT. O2 3LNC. R GROIN WITH BRUISING NOTED. WILL CONTINUE TO MONITOR. SR UP X2, CALL LIGHT WITHIN REACH.
--- NOTE | 2017-02-04 22:07 | NUR ---
PM MEDS GIVEN. FSBS 318. 12 UNITS REG INSULIN GIVEN SUB-Q TO UPPER R ARM. PT CURRENTLY WACHING TV. WILL CONTINUE TO MONITOR.
--- NOTE | 2017-02-05 00:08 | NUR ---
TORADOL 30MG IVP GIVEN FOR C/O SEVERE CP WITH COUGH. WILL CONTINUE TO MONITOR.
[2017-02-05 00:40] VITALS: BP 101/59
--- NOTE | 2017-02-05 03:56 | NUR ---
NORCO PO GIVEN FOR C/O SHARP CP WITH COUGH. WILL CONTINUE TO MONITOR.
[2017-02-05 04:30] VITALS: BP 101/68
--- NOTE | 2017-02-05 06:33 | NUR ---
VSS THROUHGOUT NIGHT. SR/ST PER CM. PT STATED TORADOL IV WORKED BEST FOR CHEST PAIN. NEEDS MET; WILL CONTINUE TO MONITOR.
[2017-02-05 06:42] LABS: ANION GAP 14.8 mmol/L (8-16); CALCIUM 8.2 mg/dL (8.5-10.1); CARBON DIOXIDE 25.6 mmol/L (21.0-32.0); CREATININE - SERUM 1.1 mg/dL (0.6-1.3)
[2017-02-05 06:46] LABS: BASOPHILS 0 % (0-2); EOSINOPHILS 0 % (0-7); HEMATOCRIT 32.6 % (36.0-48.0); HEMOGLOBIN 10.4 g/dL (12-16); IMMATURE GRANULOCYTES 0.7 % (0-5); MCH 27.4 pg (26.0-34.0); MCHC 31.9 g/dL (31.0-37.0); MEAN PLATELET VOLUME 10.1 fL (7.4-10.4); NEUTROPHILS 80.3 % (40-80); PLATELET COUNT 307 10x3/uL (130-400); RBC 3.79 10x6/uL (4.00-5.40); RDW 16.3 % (11.5-14.5); WBC 20.9 10x3/uL (4.8-10.8)
[2017-02-05 06:53] LABS: POTASSIUM - SERUM 5.4 mmol/L (3.5-5.1)
--- NOTE | 2017-02-05 07:16 | NUR ---
REPORT RECIEVED. PT RESTING QUIETLY, DENIES NEEDS AT THIS TIME. RR EVEN AND UNLABORED, PT SITTING UP IN BED. PT REPORTS PAIN WHEN SHE DEEP BREATHES AND COUGHS. WILL CTM.
[2017-02-05 08:00] VITALS: BP 91/57
[2017-02-05 13:34] VITALS: BP 125/43
--- NOTE | 2017-02-05 13:44 | NUR ---
Nutrition Follow Up: Pt stated that her appetite is great. She said that she is aware of the honey thick liquid and mech soft restrictions. Pt is eating 98% meal avg on a diabetic mech soft diet with honey thick liquids. Wt stable. +BM 02/03/17. Labs reviewed - Glucose, K+ elevated. Meds noted. Rec continue diabetic diet; consistencies per FOUNTAIN CLERK recs. RD following.
[2017-02-05 17:18] VITALS: BP 99/65
--- NOTE | 2017-02-05 18:17 | NUR ---
PT RESTING QUIETLY, RR EVEN AND UNLABORED. PT DENIES NEEDS AT THIS TIME. WILL GIVE REPORT ON PT CONDTION FOR THE DAY.
[2017-02-05 19:00] VITALS: BP 103/65
--- NOTE | 2017-02-05 21:40 | NUR ---
HS MEDS GIVEN WITH FRESH ICE WATER, BS 302, COVERED PER S/S. CHOCOLATE PUDDING AT PT REQUEST, NO OTHER NEEDS VOICED AT THIS TIME.
[2017-02-06] VITALS: BP 100/63
--- NOTE | 2017-02-06 02:15 | NUR ---
RESTING WITH EYES CLOSED, RESPERATIONS EVEN NO S/S DISTRESS NOTED.
--- NOTE | 2017-02-06 02:54 | NUR ---
CALL LIGHT IN REACH, WILL CONTINUE WITH PLAN OF CARE.
[2017-02-06 04:03] VITALS: BP 101/57
[2017-02-06 05:52] LABS: BASOPHILS 0 % (0-2); EOSINOPHILS 0.1 % (0-7); HEMATOCRIT 30.6 % (36.0-48.0); HEMOGLOBIN 9.7 g/dL (12-16); IMMATURE GRANULOCYTES 0.7 % (0-5); LYMPHOCYTES 20.3 % (15-50); MCHC 31.7 g/dL (31.0-37.0); MCV 85.2 fL (80.0-100.0); MEAN PLATELET VOLUME 10.1 fL (7.4-10.4); MONOCYTES 7.4 % (2-11); NEUTROPHILS 71.5 % (40-80); RBC 3.59 10x6/uL (4.00-5.40)
[2017-02-06 05:59] LABS: PLATELET COUNT 198 10x3/uL (130-400); WBC 14.8 10x3/uL (4.8-10.8)
[2017-02-06 06:09] LABS: ALBUMIN 2.4 g/dL (3.4-5.0); ANION GAP 14.4 mmol/L (8-16); BILIRUBIN - TOTAL 0.34 mg/dL (0.2-1.3); CARBON DIOXIDE 27.9 mmol/L (21.0-32.0); PROTEIN - SERUM 6.3 g/dL (6.4-8.2)
[2017-02-06 06:11] LABS: POTASSIUM - SERUM 4.3 mmol/L (3.5-5.1)
--- NOTE | 2017-02-06 07:30 | NUR ---
REPORT RECIEVED. PT RESTING QUIETLY, REPORTING PAIN IN HER LOWER BACK. RR EVEN AND UNLABORED. PT ALERT AND ORIENTED. WILL CTM.
[2017-02-06 08:00] VITALS: BP 126/77
[2017-02-06 12:00] VITALS: BP 81/46
--- NOTE | 2017-02-06 12:54 | NUR ---
PTS BP IS LOW, PT SLEEPING FREQUENTLY, EASY TO AROUSE. ALERT AND ORIENTED, WILL RECHECK BP AND CTM.
[2017-02-06 16:00] VITALS: BP 109/62
--- NOTE | 2017-02-06 18:28 | NUR ---
PT RESTING QUIELTY, RR EVEN AND UNLABORED. REQUESTING PRN PAIN MEDS, WILL GIVE AND GIVE REPORT ON PT CONDITION FOR THE DAY.
[2017-02-06 19:00] VITALS: BP 120/72
--- NOTE | 2017-02-06 19:30 | NUR ---
RESTING QUIETLY RESP UNLABORED AAOX4 NAD NOTED
--- NOTE | 2017-02-06 21:20 | NUR ---
HS MEDS GIVEN, BS 354, COVERD PER S/S. FRESH CUP OF ICE AND HS SNACK PROVIDED. NO OTHER NEEDS EXPRESSED AT THIS TIME.
[2017-02-07] VITALS: BP 116/78
--- NOTE | 2017-02-07 00:26 | NUR ---
NORCO 1 TAB GIVEN FOR C/O PAIN TO BACK, RATES PAIN AT AN 8 ON PAIN SCALE.
--- NOTE | 2017-02-07 02:57 | NUR ---
RESTING WITH EYES CLOSED, RESPERATIONS EVEN, NO S/S DISTRESS NOTED.
[2017-02-07 04:37] VITALS: BP 110/69
[2017-02-07 04:46] LABS: BASOPHILS 0.1 % (0-2); EOSINOPHILS 0.7 % (0-7); HEMATOCRIT 31.4 % (36.0-48.0); HEMOGLOBIN 9.8 g/dL (12-16); IMMATURE GRANULOCYTES 0.8 % (0-5); LYMPHOCYTES 28.4 % (15-50); MCH 26.8 pg (26.0-34.0); MCHC 31.2 g/dL (31.0-37.0); MCV 85.8 fL (80.0-100.0); MEAN PLATELET VOLUME 10.2 fL (7.4-10.4); MONOCYTES 8.2 % (2-11); NEUTROPHILS 61.8 % (40-80); PLATELET COUNT 193 10x3/uL (130-400); RBC 3.66 10x6/uL (4.00-5.40); RDW 15.8 % (11.5-14.5); WBC 17.6 10x3/uL (4.8-10.8)
[2017-02-07 05:09] LABS: ALBUMIN 2.3 g/dL (3.4-5.0); ANION GAP 10.9 mmol/L (8-16); BILIRUBIN - TOTAL 0.42 mg/dL (0.2-1.3); CARBON DIOXIDE 29.5 mmol/L (21.0-32.0); CREATININE - SERUM 0.9 mg/dL (0.6-1.3); PROTEIN - SERUM 6.3 g/dL (6.4-8.2)
[2017-02-07 05:12] LABS: POTASSIUM - SERUM 3.4 mmol/L (3.5-5.1)
--- NOTE | 2017-02-07 07:15 | NUR ---
ASSESSMENT DONE. DENIES NEEDS.
[2017-02-07 08:42] VITALS: BP 107/75
[2017-02-07 12:40] VITALS: BP 104/64
[2017-02-07 15:44] LABS: % SATURATION 6 % (15-55); IRON 24 ug/dl (35-150); TOTAL IRON BIND CAPACITY 373 ug/dl (260-445); UNSAT IRON BIND CAPACITY 349 ug/dl (150-375)
--- NOTE | 2017-02-07 18:00 | NUR ---
WITHOUT CHANGES OR DISTRESS NOTED AT THIS TIME. DENIES NEEDS
[2017-02-07 19:01] LABS: INR 1.02 (0.85-1.17); PROTIME 13.3 SECONDS (11.6-15.0)
[2017-02-07 19:04] LABS: BASOPHILS 0 % (0-2); EOSINOPHILS 0 % (0-7); HEMOGLOBIN 10.2 g/dL (12-16); IMMATURE GRANULOCYTES 0.5 % (0-5); LYMPHOCYTES 10.9 % (15-50); MCH 26.9 pg (26.0-34.0); MCHC 31.9 g/dL (31.0-37.0); MCV 84.4 fL (80.0-100.0); MEAN PLATELET VOLUME 10.1 fL (7.4-10.4); NEUTROPHILS 84.6 % (40-80); PLATELET COUNT 241 10x3/uL (130-400); RBC 3.79 10x6/uL (4.00-5.40); WBC 20.3 10x3/uL (4.8-10.8)
--- NOTE | 2017-02-07 19:25 | NUR ---
CONSENTS SIGNED AND WITTNESSED FOR BRONCHOSCOPY TO BE DONE ON 02/08/17. REMINDED PT OF NOTHING TO EAT OR DRINK AFTER MN, PT STATED UNDERSTANDING. ZOFRAN 4 MG GIVEN FOR C/O NUASEA.
[2017-02-07 20:00] VITALS: BP 105/65
--- NOTE | 2017-02-07 20:00 | NUR ---
VITALS OBTAINED BY NURSE, VITALS SIGNS STABLE.
--- NOTE | 2017-02-07 21:18 | NUR ---
HS MEDS GIVEN, NORCO 1 TAB GIVEN FOR C/O PAIN TO BACK, RATES PAIN AT AN 8 ON PAIN SCALE. BS 277, COVERED PER S/S. HS SNACK PROVIDED. PTS SON AT BED SIDE.
--- NOTE | 2017-02-07 21:50 | NUR ---
VITALS OBTAIN BY NURSE, VITAL SIGNS STABLE.
[2017-02-08] VITALS (7 sets, daily range): BP systolic 95–120; BP diastolic 53–76
--- NOTE | 2017-02-08 00:20 | NUR ---
IN HOME AIDE AT BEDSIDE TO OBTAIN VITALS, CALL LIGHT IN REACH. WILL CONTINUE TO MONITOR.
--- NOTE | 2017-02-08 02:20 | NUR ---
PT SITTING UP ON SIDE OF BED ROCKING BACK AND FORTH, C/O PAIN TO CHEST FROM COUGHING TOO MUCH. RATES PAIN AT AN 8 ON PAIN SCALE, NORCO 1 TAB GIVEN WITH SMALL SIP OF WATER. WILL CONT TO MONITOR.
--- NOTE | 2017-02-08 03:23 | NUR ---
RESTING WITH EYES CLOSED, RESPERATIONS EVEN, NO S/S DISTRESS NOTED.
[2017-02-08 06:17] LABS: BASOPHILS 0.1 % (0-2); EOSINOPHILS 0.8 % (0-7); HEMATOCRIT 33.1 % (36.0-48.0); HEMOGLOBIN 10.4 g/dL (12-16); IMMATURE GRANULOCYTES 1.1 % (0-5); LYMPHOCYTES 31.3 % (15-50); MCH 26.8 pg (26.0-34.0); MCHC 31.4 g/dL (31.0-37.0); MCV 85.3 fL (80.0-100.0); MEAN PLATELET VOLUME 10.3 fL (7.4-10.4); MONOCYTES 6.1 % (2-11); NEUTROPHILS 60.6 % (40-80); PLATELET COUNT 239 10x3/uL (130-400); RBC 3.88 10x6/uL (4.00-5.40); RDW 16.1 % (11.5-14.5); WBC 27.7 10x3/uL (4.8-10.8)
[2017-02-08 06:50] LABS: ALBUMIN 2.7 g/dL (3.4-5.0); ANION GAP 13.2 mmol/L (8-16); BILIRUBIN - TOTAL 0.6 mg/dL (0.2-1.3); CALCIUM 8.4 mg/dL (8.5-10.1); CARBON DIOXIDE 29.2 mmol/L (21.0-32.0); CREATININE - SERUM 0.9 mg/dL (0.6-1.3); MAGNESIUM - SERUM 1.6 mg/dL (1.8-2.4); PHOSPHOROUS 3.7 mg/dL (2.5-4.9); PROTEIN - SERUM 6.5 g/dL (6.4-8.2)
[2017-02-08 06:51] LABS: POTASSIUM - SERUM 4.4 mmol/L (3.5-5.1)
--- NOTE | 2017-02-08 07:20 | NUR ---
PT SITTING UP IN BED WATCHING TV DENIES NEEDS WILL CONT TO MONITOR
[2017-02-08 09:03] LABS: INR 1.09 (0.85-1.17)
--- NOTE | 2017-02-08 12:22 | OP ---
PATIENT NAME: IDALIA DALAL MEDICAL RECORD: [id number] :51 LOCATION:D.M2 D.2124 ADMISSION DATE:01/27/17 SURGEON: MEG BUSTOS MD DATE OF OPERATION: 01/30/2017 PROCEDURES: 1. PTCA stent LAD. 2. Intravascular ultrasound. 3. Left heart catheterization. 4. Selective coronary angiography. 5. Left ventriculogram. INDICATION: Angina, coronary artery disease, and ventricular tachycardia. PROCEDURE IN DETAIL: After informed consent was obtained and after a detailed explanation of risks, benefits as well as alternative therapies, the patient elected to proceed with angiogram and angioplasty. The left femoral area was prepped and draped in normal sterile fashion. The left femoral artery was cannulated via modified Seldinger technique with placement of 6-Mosotho sheath. All catheters exchanged through this sheath. FINDINGS: The left ventriculogram was performed in standard 30-degree SERNA view, reveals mild hypokinesis, ejection fraction 40%. SELECTIVE CORONARY ANGIOGRAPHY: 1. Left main showed no significant angiographic disease. 2. Left anterior descending has a 60% to 70% stenosis proximally confirmed by intravascular ultrasound. 3. Left circumflex has moderate irregularities, but no flow-limiting stenosis. 4. The right coronary has previously placed stents, these are widely patent with no significant restenosis. PTCA STENT OF THE LAD: The stent used is a 3.0 x 15 mm Integrity. Result was 0% residual stenosis. OVERALL IMPRESSION: Successful percutaneous transluminal coronary angioplasty stent of the left anterior descending going from 60% to 70% initial stenosis to 0% residual stenosis. TRANSINT:[id number] Voice Confirmation ID: [id number] DOCUMENT ID: [id number] MEG BUSTOS MD at 1222 CC: [id number] DICTATION DATE: 01/30/17 1039 GLOBAL COMMODITY MANAGER: 01/30/17 1050 [place] [address]
--- NOTE | 2017-02-08 12:22 | EC ---
PATIENT:IDALIA DALAL DATE OF SERVICE: 01/27/17 SEX: F MEDICAL RECORD: [id number] DATE OF : [birth year] LOCATION:D.M2 D.212 AGE OF PATIENT: 61 ADMISSION DATE: 01/27/17 REFERRING PHYSICIAN: INTERPRETING PHYSICIAN: MEG BILLINGSLEY MD ECHOCARDIOGRAM REPORT ECHO CHARGES 4 ECHO COMPLETE CLINICAL DIAGNOSIS: CHF HX OF CAD/STENTS/HTN/DM ECHOCARDIOGRAPHIC MEASUREMENTS (adult normal given) AC root (d.<3.7cm) 2.9 cm LV Septum d (<1.2 cm> 1.2 cm Valve Excursion 1.4 cm LV Septum (systole) 1.4 cm Left Atria (s.<4.0cm> 3.9 cm LVPW d(<1.2cm) 1.2 cm RV (d.<2.3cm) 2.8 cm LVPW (sytole) 1.5 cm LV diastole(<5.6CM) 5.3 cm MV E-F(>70mm/sec) cm LV systole 3.7 cm LVOT Diameter 1.5 cm MV exc.(>10mm) 1.6 cm Est.ejection fraction (50-75%) % Pericardial Effusion Y DOPPLER: LVIT cm/sec A 83.0 cm/sec E 113 cm/sec LA cm/sec RVSP 32 mmHg LVOT 125 cm/sec AOP1/2T m/s Asc. Ao 145 cm/sec RVOT 88 cm/sec RA cm/sec PA 123 cm/sec AV Gradient Peak 8.19 mmHg AV Mean 4.15 mmHg AV Area 1.5 cm MV Gradient Peak 5.20 mmHg MV Mean 2.25 mmHg MV Area cm COMMENTS: Computer Peripheral Equipment Operator: Izzy LANDEROS Dispensing And Measuring Optician: 1 Dr. Billingsley TAPE# PACS DATE OF SERVICE: 01/28/2017 Echocardiogram FINDINGS: 1. Left ventricular chamber size is within normal limits. Left ventricular systolic function is normal. Overall ejection fraction estimated at 55%. 2. Left atrium, right atrium, and right ventricle chamber sizes are within normal limits. 3. Valvular structures have normal structure and motion. ECHOCARDIOGRAM REPORT [id number] IDALIA DALAL 4. Doppler interrogation reveals moderate mitral regurgitation, mild tricuspid regurgitation, no other valvular insufficiency or stenosis. Pulmonary systolic pressure is normal, estimated 32 mmHg. 5. Small pericardial effusion is present . This is not hemodynamically significant. TRANSINT:[id number] Voice Confirmation ID: [id number] DOCUMENT ID: [id number] MEG BILLINGSLEY MD at 1222 CC: [id number] DICTATION DATE: 01/28/17 1119 CERTIFIED APPLIANCE SERVICE TECHNICIAN: 01/28/17 1322 ADM IN [facility] [address] [id number]
--- NOTE | 2017-02-08 12:23 | NUR ---
PT BACK FROM PROCEDURE LETHARGIC BUT ARROUSES EASILY. VS ARE ALL WNL. O2 SAT IS 92% ON BIPAP. DR PAGAN AND BRONCH STAFF SAID TO LEAVE ON BIPAP UNTIL PT WAKES UP FULLY. NO EATING OR DRINKING FOR ONE HOUR. WILL CONT TO MONITOR
--- NOTE | 2017-02-08 13:13 | NUR ---
Nutrition Follow Up: Pt is eating 84% meal avg on a diabetic [facility] soft diet with honey thick liquids. Noted PUBLISHING MANAGER has upgraded pt to regular solids and thin liquids. Noted pt remains NPO until more awake from Bronch procedure today. Wt stable. +BM 02/06/17. Meds noted including Lasix. Labs reviewed. Rec resume diabetic diet when medically feasible. RD following.
--- NOTE | 2017-02-08 13:52 | NUR ---
PT IONIZED CALCIUM IS 0.68. NOTIFIED BOB ARANDA.
--- NOTE | 2017-02-08 14:59 | NUR ---
PT SITTING UP IN BED WITH SON AT BEDSIDE. DENIES NEEDS OTHER THAN ESTEVEZ MEDICATION, GIVEN. WILL CONT TO MONITOR
--- NOTE | 2017-02-08 18:30 | NUR ---
PT SITTING UP IN BED WATCHING TV, DENIES NEEDS. SON IS AT BEDSIDE.
--- NOTE | 2017-02-08 19:50 | NUR ---
NURSE AT BED SIDE TO OBTAIN VITALS, VITAL SIGNS STABLE.
--- NOTE | 2017-02-08 20:11 | NUR ---
NORCO 1 TAB GIVEN FOR C/O PAIN, RATES PAIN AT AN 8 0N PAIN SCALE. VISITOR AT BED SIDE, BED LOW, CL IN REACH.
--- NOTE | 2017-02-08 22:02 | NUR ---
HS MEDS GIVEN, BS 343, COVERED PER S/S. PT DENIES PAIN OR NEEDS, BED LOW, CL IN REACH.
--- NOTE | 2017-02-09 01:23 | NUR ---
RESTING WITH EYES CLOSED, RESPERATIONS EVEN, NO S/S DISTRESS NOTED.
--- NOTE | 2017-02-09 02:50 | NUR ---
NOROC 1 TAB GIVEN FOR C/O PAIN, RATES PAIN AT A 7 ON PAIN SCALE.
[2017-02-09 06:12] LABS: BASOPHILS 0 % (0-2); EOSINOPHILS 0.6 % (0-7); HEMATOCRIT 29.2 % (36.0-48.0); HEMOGLOBIN 9.3 g/dL (12-16); IMMATURE GRANULOCYTES 0.4 % (0-5); LYMPHOCYTES 20.7 % (15-50); MCH 27.2 pg (26.0-34.0); MCHC 31.8 g/dL (31.0-37.0); MCV 85.4 fL (80.0-100.0); MONOCYTES 3.6 % (2-11); NEUTROPHILS 74.7 % (40-80); PLATELET COUNT 143 10x3/uL (130-400); RBC 3.42 10x6/uL (4.00-5.40); RDW 16.2 % (11.5-14.5)
[2017-02-09 07:12] LABS: BILIRUBIN - TOTAL 0.75 mg/dL (0.2-1.3); CALCIUM 7.4 mg/dL (8.5-10.1); CARBON DIOXIDE 30.1 mmol/L (21.0-32.0); CREATININE - SERUM 0.9 mg/dL (0.6-1.3); MAGNESIUM - SERUM 1.5 mg/dL (1.8-2.4); PHOSPHOROUS 3.2 mg/dL (2.5-4.9); PROTEIN - SERUM 5.6 g/dL (6.4-8.2)
[2017-02-09 07:14] LABS: ANION GAP 8.6 mmol/L (8-16); POTASSIUM - SERUM 3.7 mmol/L (3.5-5.1)
[2017-02-09 08:57] VITALS: BP 94/57
[2017-02-09 09:16] LABS: FOLATE (FOLIC ACID) - SERUM >20.0 ng/mL (>3.0)
[2017-02-09 12:12] VITALS: BP 114/86
--- NOTE | 2017-02-09 14:04 | NUR ---
ASSESSMENT COMPLETED. JUSTIN SHOWS SR 96.02 AT 3 /M PER NC. SL TO RIGHT WRIST. DENIES ANY NEEDS. CALL LIGHT IN REACH WITH SR UP. WILL MONITOR
[2017-02-09 19:00] VITALS: BP 105/57
--- NOTE | 2017-02-09 22:39 | NUR ---
HS MEDS GIVEN, BS 232, COVERED PER S/S. AT BED SIDE, PT DENIES PAIN OR NEEDS, BED LOW, CL IN REACH.
[2017-02-10] VITALS (18 sets, daily range): BP systolic 94–124; BP diastolic 59–89
--- NOTE | 2017-02-10 00:33 | NUR ---
NORCO 1 TAB GIVEN FOR C/O PAIN TO BACK,RATES PAIN AT AN 8 ON PAIN SCALE.
--- NOTE | 2017-02-10 02:58 | NUR ---
RESTING WITH EYES CLOSED, RESPERATIONS EVEN, NO S/S DISTRESS NOTED.
[2017-02-10 05:37] LABS: BASOPHILS 0 % (0-2); EOSINOPHILS 0.6 % (0-7); HEMATOCRIT 31.4 % (36.0-48.0); HEMOGLOBIN 10.3 g/dL (12-16); IMMATURE GRANULOCYTES 0.4 % (0-5); LYMPHOCYTES 22.2 % (15-50); MCH 27.6 pg (26.0-34.0); MCHC 32.8 g/dL (31.0-37.0); MCV 84.2 fL (80.0-100.0); MEAN PLATELET VOLUME 10.5 fL (7.4-10.4); MONOCYTES 5.1 % (2-11); NEUTROPHILS 71.7 % (40-80); PLATELET COUNT 190 10x3/uL (130-400); RBC 3.73 10x6/uL (4.00-5.40); WBC 24.3 10x3/uL (4.8-10.8)
[2017-02-10 06:02] LABS: ALBUMIN 2.2 g/dL (3.4-5.0); ANION GAP 9.3 mmol/L (8-16); BILIRUBIN - TOTAL 0.8 mg/dL (0.2-1.3); CARBON DIOXIDE 28.5 mmol/L (21.0-32.0); CREATININE - SERUM 0.9 mg/dL (0.6-1.3); POTASSIUM - SERUM 3.8 mmol/L (3.5-5.1); PROTEIN - SERUM 6.4 g/dL (6.4-8.2)
--- NOTE | 2017-02-10 07:45 | NUR ---
PT IN HIGH FOWLERS POSITION VISITING WITH FAMILY AT BEDSIDE. [address] AT 5L/MIN VIA NC. RESP EVEN AND UNLABORED. PT SMILING AND DENIES PAIN OR NEEDS AT THIS TIME.
--- NOTE | 2017-02-10 08:30 | NUR ---
PT IN RIGHT LATERAL POSITION RESTING WITH EYES CLOSED. RESP RATE 22BREATHS PER MIN AND UNLABORED.
--- NOTE | 2017-02-10 09:20 | NUR ---
PHYSICAL ASSESSMENT DONE SEE SHIFT ASSESSMENT. O2 @ 5L/MIN VIA NC NOTED. CRACKLES NOTED IN UPPER LOBES BUT CLEARS WITH COUGH. LUNG SOUNDS DIMINISHED IN LOWER LOBES BILATERALLY. PT PRODUCING SMALL AMOUNT OF PINK TINGED SPUTUM AND REPORTS THAT THIS IS NO CHANGE FROM ADMISSION. O2 SAT 97% PER BED LASTER. TELEMETRY IN PLACE, SINUS RHYTHM NOTED PER TECH. ABD DISTENTION NOTED WITH BRUISING DUE TO LOVENOX INJECTIONS. BS ACTIVE X 4, PT REPORTS "REGULAR" BM AND PASSING GAS. LAST BM THIS AM PER PT. PT REPORTS THAT HER FEET ARE SWOLLEN. NO EDEMA NOTED BY THIS RN. LASIX HELD AT THIS TIME DUE TO DECREASED BP. WILL RE EVALUATE. 20G IV NOTED IN RIGHT WRIST. IV FLUSHES EASILY. PT DENIES NEEDS AT THIS TIME.
--- NOTE | 2017-02-10 11:09 | NUR ---
IV IN RIGHT WRIST NOTED TO BE INFILTRATED. IV REMOVED WITH CATH TIP INTACT.
--- NOTE | 2017-02-10 11:10 | NUR ---
PT SITTING UP IN CHAIR LEANING FORWARD. PT REPORTING PAIN 10/10 IN ABDOMEN AND REQUESTS PAIN MEDICATION. NORCO 5/325MG GIVEN PO. PT COUGHING UP LIGHT PINK TINGED SPUTUM AND STATES THAT SHE HAS BEEN COUGHING THIS UP SINCE ARRIVAL TO THE HOSPITAL. PT DENIES FURTHER NEEDS AT THIS TIME.
--- NOTE | 2017-02-10 11:14 | NUR ---
PT REPORTS PAIN 8/10 IN ABDOMEN AND REQUESTS PAIN MEDICATION. NORCO GIVEN, SEE EMAR.
--- NOTE | 2017-02-10 11:20 | NUR ---
RT IN ROOM, PT MOVED BACK TO BED AT THIS TIME. CONNECTING BIPAP MACHINE AT THIS TIME. PT ENCOURAGED TO TAKE SLOWER AND DEEPER BREATHS. FAMILY REMAINS AT BEDSIDE.
--- NOTE | 2017-02-10 11:20 | NUR ---
22G IV PLACED IN RIGHT HAND. 60MG LASIX GIVEN SLOW IVP AT THIS TIME. DASHAWN ARMAS IVPB. PT REPORTS PAIN AND SOB.
--- NOTE | 2017-02-10 12:15 | NUR ---
PT IN HIGH FOWLERS POSITION. RESP. 24 BREATHS PER MINUTE. PT NO LONGER REPORTING ANXIETY OF FEELING SOB. PT DENIES NEEDS
--- NOTE | 2017-02-10 12:45 | NUR ---
UPON ENTERING ROOM, PT IN HIGH FOWLERS POSITION HOLDING BIPAP OFF OF HER FACE WITH A FAN BLOWING INTO HER FACE. EXPLAINED TO PT THAT THE BIPAP MACHINE NEEDED TO REMAIN ON HER FACE IN ORDER TO ASSIST WITH BREATHING. PT COMPLIES AND LIES BACK TO RELAX AGAIN. . RESP RATE 26BPM.
--- NOTE | 2017-02-10 13:20 | NUR ---
PT [employer] DEVELOPER LIGHT REPORTING DESIRE TO REMOVE BIPAP MACHINE. PT REPORTING PAIN IN ABDOMEN AND SOB STILL. UPON ENTERING ROOM PT HOLDING BIPAP MACHINE OFF OF HER FACE AGAIN. ENCOURAGED PT TO LEAVE IT ON. PT BECOMING AGITATED AND MOVING AROUND ALOT. NIURKA FROM RT NOTIFIED OF PT DESIRE TO REMOVE BIPAP.
--- NOTE | 2017-02-10 13:25 | NUR ---
UNABLE TO OBTAIN TEMP. AT THIS TIME DUE TO FAN BLOWING OVER PT. PT HAS BIPAP MASK ON SO UNABLE TO OBTAIN TEMP. PT COOL TO TOUCH.
--- NOTE | 2017-02-10 13:25 | NUR ---
RT IN ROOM ASSESSING PT. O2 SAT RANGE 87-90 ON 60% FIO2. CRACKLES NOTED THROUGHOUT LUNG DAILEY AND EXPIRATORY WHEEZES NOTED WELL. LUNGS SOUND WORSE THAN AM ASSESSMENT.
--- NOTE | 2017-02-10 13:45 | NUR ---
RT REMAINS IN ROOM. O2 SAT CONSISTENTLY REMAINING 87-88%. FI02 INCREASED TO 100% O2 PER RT. O2 SAT RISES TO 90-91% PT VERBALIZES DIFFICULTY BREATHING AND CURRENT BREATHING PATTERN IS LABORED.
--- NOTE | 2017-02-10 13:54 | NUR ---
DR PAGAN IN ROOM ASSESSING PT.
--- NOTE | 2017-02-10 14:13 | NUR ---
REPORT GIVEN TO DAMON IN ICU
--- NOTE | 2017-02-10 14:15 | NUR ---
PT TAKEN TO 2306 WITH HELP OF SHAMIKA PAYAN. RT CONNECTED PT TO PORTABLE O2 AND FURTHER REPORT GIVEN TO DAMON PAYAN.
--- NOTE | 2017-02-10 14:17 | NUR ---
REC'D TO ROOM 2306 VIA BED. TRANSFERRED TO ICU BED BY [employer]. CONNECTED TO MONITOR AND VS OBTAINED. FIO2 100% VIA BIPAP MASK. IV L HAND SALINE LOCKED. CANDY HUGGAR PLACED FOR TEMP 95 TEMPORAL.
--- NOTE | 2017-02-10 14:38 | NUR ---
DR. PINEDA NOTIFIED OF CONSULT.
[2017-02-10 15:12] LABS: AFB SPECIMEN PROCESSING Concentration (())
[2017-02-10 15:28] LABS: CKMB 1.7 U/L (0.0-3.6); CREATINE KINASE 55 UL (21-215)
[2017-02-10 15:32] LABS: TROPONIN-I 0.083 ng/mL (0.000-0.060)
--- NOTE | 2017-02-10 20:30 | NUR ---
PT HAVING ABD DISCOMFORT AND UNABLE TO VOID. 16FR STONE CATH PLACED PER MD ORDERS. PT ON LASIX GTT AT THIS TIME. 700CC OF CLEAR YELLOW URINE RETURNED. PT REPORTS ABD MORE COMFORTABLE AT THIS TIME. STONE SECURED TO LEFT LEG.
--- NOTE | 2017-02-10 20:45 | NUR ---
PT OFF BIPAP. PLACED ON 15L OXIMIZER. TOLERATING TAKING P.O. PILLS AT THIS TIME. NON PRODUCTIVE COUGH NOTED. RESP 20-24. O2 SAT 96%. REDNESS NOTED TO BRIDGE OF NOSE, BUT NO BREAKDOWN NOTED.
--- NOTE | 2017-02-10 21:29 | NUR ---
PT'S FAMILY AT BEDSIDE. PT TOLERATING BEING OFF BIPAP AT THIS TIME. SATS 94%.
[2017-02-10 21:59] LABS: CKMB 1.4 U/L (0.0-3.6); CREATINE KINASE 46 UL (21-215)
[2017-02-10 22:00] LABS: TROPONIN-I 0.066 ng/mL (0.000-0.060)
--- NOTE | 2017-02-10 23:09 | NUR ---
PT C/O BEING SHORT OF BREATH. O2 SAT 94% ON 11L OXIMIZER. PT PLACED BACK ON BIPAP AT 70%. O2 SAT 99%. WILL CONTINUE TO MONITOR. CALL LIGHT WITHIN REACH.
[2017-02-11] VITALS (24 sets, daily range): BP systolic 91–119; BP diastolic 55–74
--- NOTE | 2017-02-11 01:15 | NUR ---
PT RESTING COMFORTABLY. VSS. NO NEEDS AT THIS TIME. CONTINUING TO WEAN O2 DOWN ON BIPAP PT TOLERATES.
--- NOTE | 2017-02-11 03:30 | NUR ---
PT PLACED ON 5L OXIMIZER. TOLERATING WELL. O2 SAT 96%. WILL CONTINUE TO MONITOR.
[2017-02-11 03:43] LABS: BASOPHILS 0 % (0-2); EOSINOPHILS 0 % (0-7); HEMATOCRIT 32.4 % (36.0-48.0); HEMOGLOBIN 10.2 g/dL (12-16); IMMATURE GRANULOCYTES 0.2 % (0-5); LYMPHOCYTES 8.3 % (15-50); MCH 26.6 pg (26.0-34.0); MCHC 31.5 g/dL (31.0-37.0); MCV 84.6 fL (80.0-100.0); MEAN PLATELET VOLUME 10.6 fL (7.4-10.4); MONOCYTES 2.6 % (2-11); NEUTROPHILS 88.9 % (40-80); RBC 3.83 10x6/uL (4.00-5.40)
[2017-02-11 03:44] LABS: PLATELET COUNT 148 10x3/uL (130-400); WBC 16.1 10x3/uL (4.8-10.8)
[2017-02-11 04:16] LABS: ALBUMIN 2.2 g/dL (3.4-5.0); ALKALINE PHOSPHATASE 79 U/L (46-116); ALT (SGPT) 76 U/L (10-68); BILIRUBIN - TOTAL 0.93 mg/dL (0.2-1.3); CALC OSMOLALITY 284 mosm/kg (275-300); CALCIUM 7.7 mg/dL (8.5-10.1); CARBON DIOXIDE 29.3 mmol/L (21.0-32.0); CHLORIDE - SERUM 99 mmol/L (98-107); CKMB 1.1 U/L (0.0-3.6); CREATINE KINASE 34 UL (21-215); GLUCOSE 136 mg/dL (74-106); MAGNESIUM - SERUM 1.3 mg/dL (1.8-2.4); PHOSPHOROUS 3.8 mg/dL (2.5-4.9); POTASSIUM - SERUM 3.3 mmol/L (3.5-5.1); PRO BNP 5068 pg/mL (0-125); PROTEIN - SERUM 6.4 g/dL (6.4-8.2); SODIUM 140 mmol/L (136-145); UREA NITROGEN 25 mg/dL (7-18); eGFR NON AFRICAN AMERICAN 59 mL/min (90-120)
[2017-02-11 04:17] LABS: TROPONIN-I 0.073 ng/mL (0.000-0.060)
--- NOTE | 2017-02-11 19:15 | NUR ---
ASSESSMENT COMPLETE. S1S2. NSR SHOWING ON MONITOR. PT SITTING UP IN BED. COUGHING NOTED. CRACKLES NOTED BILATERALLY IN UPPER AND MID LOBES; DIMINISHED BILATERALLY IN LOWER LOBES. RADIAL AND PEDAL PULSES PALPATED. SKIN PALE. SUCTION AT BEDSIDE. PT C/O PAIN IN CHEST/ABD WHEN COUGHING. REQUEST PAIN MED; PAIN MED WAS GIVEN PREVIOUSLY NOT TIME FOR NEXT DOSE. SEE EMAR FOR DETAILS. PERRLA. BRUISING NOTED TO RIGHT GROIN; BIALATERAL ARMS AND LEGS. AAO. ABD ROUNDED AND FIRM; BOWEL SOUNDS AUDIBLE. BRUISING NOTED TO ABD.
--- NOTE | 2017-02-11 20:28 | NUR ---
PT USING INCENTIVE SPIROMETER; EDUCATED ON DEEP BREATHING AND COUGHING. PT C/O PAIN WITH COUGHING.
--- NOTE | 2017-02-11 20:40 | NUR ---
PT HAVING INCREASED AGITATION. REQUESTED WATER STATING SHE WAS ABLE TO HAVE NON THICKENED LIQUIDS; UPON LOOKING IN CHART NO NOTES WERE MADE ON PT ABLE TO HAVE UNTHICKEN LIQUIDS. ASKED FOR THE WATER BACK SO THAT IT COULD BE MADE TO THICKENED; PT BEGAN TO SCREAM STATING THAT PT WAS BEING CALLED A LIAR. WAS DISPLEASED THAT WATER WAS MADE THICKENED.
--- NOTE | 2017-02-11 20:59 | NUR ---
REC'D TO CARE, NO CHANGE FROM PREV ASSESSMENT. ADMIN PO MEDS PER MD ORDERS. FSBS 315 - COVERAGE PER SS AND LANTUS GIVEN. ALARMS ON. C/L IN REACH.
--- NOTE | 2017-02-11 21:00 | NUR ---
DAUGHTER AT BS VISITING.
--- NOTE | 2017-02-11 22:39 | NUR ---
PT REPORTS "FEELING WET". SMALL AMT LEAKING NOTED FROM STONE. PLACEMENT VERIFIED, PATENT. MIRIAM-CARE, STONE-CARE DONE AND PAD CHANGED.
--- NOTE | 2017-02-11 23:07 | NUR ---
REASSESSMENT PER FLOWSHEET, NO ACUTE CHANGES. PT UP IN BED, COOPERATIVE, CONT FREQ COUGH. PRN NORCO GIVEN PER REQUEST. VSS. C/L IN REACH.
[2017-02-12] VITALS (24 sets, daily range): BP systolic 91–117; BP diastolic 56–75
--- NOTE | 2017-02-12 01:21 | NUR ---
BREAK FROM BIPAP. GIVEN THICKENED BROTH PER REQUEST. VSS. C/L IN REACH.
--- NOTE | 2017-02-12 02:15 | NUR ---
RSTING WITH EYES CLOSED, ON BIPAP. NO SIGN OF DISTRESS.
--- NOTE | 2017-02-12 03:15 | NUR ---
PCXR DONE. PT C/O NAUSEA - ZOFRAN PER PRN ORDER GIVEN. SEE REASSESSMENT.
[2017-02-12 03:52] LABS: BASOPHILS 0.1 % (0-2); EOSINOPHILS 0 % (0-7); HEMOGLOBIN 9.9 g/dL (12-16); IMMATURE GRANULOCYTES 0.6 % (0-5); LYMPHOCYTES 8.6 % (15-50); MCH 26.3 pg (26.0-34.0); MCHC 30.9 g/dL (31.0-37.0); MCV 85.1 fL (80.0-100.0); MEAN PLATELET VOLUME 11.1 fL (7.4-10.4); MONOCYTES 5.2 % (2-11); NEUTROPHILS 85.5 % (40-80); PLATELET COUNT 166 10x3/uL (130-400); RBC 3.76 10x6/uL (4.00-5.40); RDW 16.5 % (11.5-14.5); WBC 37.6 10x3/uL (4.8-10.8)
[2017-02-12 04:16] LABS: ANION GAP 12.2 mmol/L (8-16); CALCIUM 7.6 mg/dL (8.5-10.1); CARBON DIOXIDE 29.9 mmol/L (21.0-32.0); CREATININE - SERUM 0.9 mg/dL (0.6-1.3); POTASSIUM - SERUM 4.1 mmol/L (3.5-5.1)
[2017-02-12 04:17] LABS: MAGNESIUM - SERUM 2.9 mg/dL (1.8-2.4); PHOSPHOROUS 2.7 mg/dL (2.5-4.9)
--- NOTE | 2017-02-12 04:49 | NUR ---
ABGS RESULTED, PT WITH FREQ COUGH. ADMIN PRN NORCO PER C/O 'CHEST HURTS FROM COUGHING'. REPOSITIONED UP IN BED, OXYMIZER TO 7L PER RT.
--- NOTE | 2017-02-12 05:28 | NUR ---
PT REPORTS "FEELING BETTER". BACK ON BIPAP AT THIS TIME.
--- NOTE | 2017-02-12 07:00 | NUR ---
SHIFT ASSESSMENT COMPLETE, PT ALERT AND ORIENTED, RESPIRATIONS SHALLOW, ON BIPAP, DENIES PAIN, VSS, PIV TO LEFT ARM INFUSING NS KVO, DENIES ALL NEEDS, WILL CONTINUE TO MONITOR
--- NOTE | 2017-02-12 09:00 | NUR ---
PT UNABLE TO TAKE BIPAP OFF WITHOUT DESATTING INTO LOW 80S, ABLE TO TOLERATE MEDICATIONS BUT UNABLE TO TOLERATE BREAKFAST TRAY, REPOSITIONED, WILL CO NTINUE TO MONITOR
--- NOTE | 2017-02-12 09:41 | NUR ---
NUTRITION F/U CHART REVIEWED. RECENT NURSING NOTE REVIEWED. PT UNABLE TO CONSUME BREAKFAST SECONDARY TO BIPAP. WILL CONTINUE TO MONITOR PT PROGRESS, PROVIDE DIET. RD FOLLOWING
--- NOTE | 2017-02-12 11:12 | NUR ---
PT REPOSITIONED, CONTINUES ON BIPAP, VSS, DENIES PAIN, WILL CONTINUE TO MONITOR
--- NOTE | 2017-02-12 13:00 | NUR ---
PT PLACED ON OXYMIZER FOR LUNCH, TOLERATING WELL, SPO2 91%
[2017-02-12 14:15] LABS: FUNGUS STAIN Final report (())
--- NOTE | 2017-02-12 15:09 | NUR ---
PLACED BACK ON BIPAP DUE TO SPO2 DROPPING INTO LOW 70S AFTER BATH AND LINEN CHANGE
--- NOTE | 2017-02-12 17:16 | NUR ---
PT ATTEMPTED TO EAT DINNER TRAY ON OXYMISER, BEGAN COUGHING AND DESATTING, UNABLE TO BRING SPO2 ABOVE 85, PLACED BACK ON BIPAP, CONTINUES WITH PRODUCTIVE COUGH, SUCTIONS SELF WITH YAUNKER, DENIES PAIN AND ALL NEEDS, WILL CONTINUE TO MONITOR
[2017-02-13] VITALS (24 sets, daily range): BP systolic 89–113; BP diastolic 54–74
[2017-02-13 07:54] LABS: BASOPHILS 0 % (0-2); EOSINOPHILS 0 % (0-7); HEMATOCRIT 32.7 % (36.0-48.0); HEMOGLOBIN 10.1 g/dL (12-16); IMMATURE GRANULOCYTES 0.5 % (0-5); LYMPHOCYTES 5.4 % (15-50); MCH 26.5 pg (26.0-34.0); MCHC 30.9 g/dL (31.0-37.0); MCV 85.8 fL (80.0-100.0); MEAN PLATELET VOLUME 10.9 fL (7.4-10.4); MONOCYTES 3.3 % (2-11); NEUTROPHILS 90.8 % (40-80); PLATELET COUNT 132 10x3/uL (130-400); RBC 3.81 10x6/uL (4.00-5.40); RDW 16.8 % (11.5-14.5)
[2017-02-13 07:55] LABS: ANION GAP 10.7 mmol/L (8-16); CALCIUM 8.7 mg/dL (8.5-10.1); CARBON DIOXIDE 29.5 mmol/L (21.0-32.0); CREATININE - SERUM 1.2 mg/dL (0.6-1.3); MAGNESIUM - SERUM 2.1 mg/dL (1.8-2.4); POTASSIUM - SERUM 4.2 mmol/L (3.5-5.1)
--- NOTE | 2017-02-13 09:08 | NUR ---
DR. VIRK IN TO SEE PATIENT. VERIFIED THAT WE COULD PUT VANC IN 100ML OF IV FLUID INSTEAD OF 250ML. PATIENT REQUESTED SOME DIET DR SLADE, GIVEN, AND AT BEDSIDE.
--- NOTE | 2017-02-13 09:44 | CN ---
PATIENT NAME:IDALIA DALAL MEDICAL RECORD: [id number] : 51 LOCATION:[facility].[id number] ADMIT DATE: 01/27/17 ACCOUNT: [id number] CONSULTING PHYSICIAN: MEG BUSTOS MD REFERRING PHYSICIAN: CRYSTAL ROBLES M.D. DATE OF CONSULTATION: 01/27/2017 CONSULTATION NOTE ADMITTING DIAGNOSES: 1. Chest pain. 2. Abnormal troponin. 3. Coronary artery disease. 4. Previous percutaneous transluminal coronary angioplasty stent. 5. Chronic obstructive pulmonary disease. 6. Smoking history. 7. Hypertension. 8. Gastroesophageal reflux disease. HISTORY OF PRESENT ILLNESS: Mrs. Dalal presents to our hospital, she had a hospital stay at [facility] where she had a myocardial infarction. Dr. Matt did a PTCA stent. It appears that it was complicated by a perforated vessel with a possible tamponade. She states that she had a tube in her heart coming out of her chest as well she had respiratory failure requiring mechanical intubation and she had a chest tube. The exact extent of complications are unknown as we do not have those records. She got out of the hospital approximately 1 week ago. Since then, she has still been very short of breath and still had episodes of chest pain. Her troponin is elevated. Her chest x-ray shows pleural effusions, no pneumothorax at this time. PHYSICAL EXAMINATION: GENERAL APPEARANCE: Well-nourished, well-developed, appears stated age. Level of distress, comfortable. PSYCHIATRIC: Mental status, alert, normal affect. Orientation, oriented to time, place and person. EYES: Lids and conjunctiva, noninjected. No discharge, no pallor. ENT: Lips, teeth, gums, normal dentition. Oropharynx, no cyanosis, no pallor. NECK: Carotid arteries, bilateral normal upstroke, no bruits, no thrills. JUGULAR VEINS: No jugular venous pressure or distention. CERVICAL LYMPH NODES: Nontender, nonenlarged. THYROID: Not enlarged. Nontender. No nodules. LUNGS: Respiratory effort, unlabored. CHEST: Normal curvature. No thoracic deformity. No chest wall tenderness. Percussion, resonant. Auscultation, clear. No wheezes, no rales, no rhonchi. CARDIOVASCULAR: Precordial exam, nondisplaced. No heaves or pericardial thrills. Rate and rhythm, regular. Heart sounds, normal S1, normal S2. No S3, no gallop, no rub. Systolic murmur, not heard. Diastolic murmur, not heard. EXTREMITIES: No cyanosis, no edema. Peripheral pulses, full and equal in all extremities, except as noted. No bruits appreciated. ABDOMEN: Soft, nondistended. Normal aorta. No bruit. Nontender. No masses. Liver, nontender, no hepatomegaly. Spleen, nontender, no splenomegaly. MUSCULOSKELETAL: No joint tenderness. No joint swelling. No erythema. NEUROLOGICAL: Normal gait, normal strength, normal tone. SKIN: Warm and dry. CONSULT REPORT [id number] IDALIA DALAL REVIEW OF SYSTEMS: The patient reports easy bruising but reports no swollen glands. The patient reports no fever, no night sweats, no significant weight gain, no significant weight loss. No significant exercise tolerance. The patient reports no dry eyes, no irritation, no vision change. Patient reports no difficulty hearing and no ear pain. Patient reports no frequent nose bleeds or nose and sinus problems. Patient reports on arm pain on exertion. No shortness of breath while lying down. No history of heart murmur. Patient reports no cough, no wheezing or coughing up blood. Patient reports no abdominal pain, no vomiting. Normal appetite. No diarrhea and not vomiting blood. No nausea and no constipation. Patient reports no incontinence. No difficulty urinating. No hematuria. No increased frequency. Patient reports no muscle aches. No weakness, no arthralgias, no back pain. No swelling of the extremities. Patient reports no abnormal mole, no jaundice, no rashes. Reports no loss of consciousness. No weakness and no numbness. No seizures, dizziness, or headaches. The patient reports no depression, no sleep disturbance, feeling safe in a relationship and no alcohol abuse. Patient reports on fatigue. Reports no runny nose or sinus pressure. No itching, no hives, and no frequent sneezing. OVERALL IMPRESSION: Recent PTCA stent at another institution complicated by what sounds like a perforation and cardiac tamponade requiring pericardiocentesis, pericardial drain and for some reason, a chest tube as well. We will try to get those records, but at this time, we will get an echocardiogram here. I do not feel a need to repeat cardiac catheterization at this time. Also have pulmonary see her. Further care depends upon findings of the echo. TRANSINT:[id number] Voice Confirmation ID: [id number] DOCUMENT ID: [id number] MEG BUSTOS MD at 0944 CC: [id number] DICTATION DATE: 01/27/17 1058 FOOT GATHERER: 01/27/17 1441 ADM IN [facility] [address] [place] [address]
--- NOTE | 2017-02-13 10:57 | NUR ---
PATIENT SLEEPING AROUSES EASILY TO VERBAL STIMULI. PATIENT TOLERATING OXIMIZER WELL AT THIS TIME.
--- NOTE | 2017-02-13 17:10 | NUR ---
PATIENT IS SITTING UP IN THE TRIPOD POSITION WITH BIPAP ON. SPO2 IS 96%. CM SR AT 90.
[2017-02-14] VITALS (28 sets, daily range): BP systolic 81–129; BP diastolic 51–77
[2017-02-14 04:44] LABS: BASOPHILS 0 % (0-2); EOSINOPHILS 0 % (0-7); HEMATOCRIT 32.3 % (36.0-48.0); HEMOGLOBIN 10.2 g/dL (12-16); IMMATURE GRANULOCYTES 0.5 % (0-5); LYMPHOCYTES 5.1 % (15-50); MCH 26.8 pg (26.0-34.0); MCHC 31.6 g/dL (31.0-37.0); MCV 84.8 fL (80.0-100.0); MEAN PLATELET VOLUME 10.8 fL (7.4-10.4); MONOCYTES 2.7 % (2-11); NEUTROPHILS 91.7 % (40-80); PLATELET COUNT 149 10x3/uL (130-400); RBC 3.81 10x6/uL (4.00-5.40); RDW 16.6 % (11.5-14.5); WBC 26.2 10x3/uL (4.8-10.8)
[2017-02-14 04:45] LABS: ANION GAP 8.1 mmol/L (8-16); CALCIUM 8.4 mg/dL (8.5-10.1); CREATININE - SERUM 1.2 mg/dL (0.6-1.3); MAGNESIUM - SERUM 1.9 mg/dL (1.8-2.4); POTASSIUM - SERUM 4.1 mmol/L (3.5-5.1)
--- NOTE | 2017-02-14 07:10 | NUR ---
PATIENT STATES HER PAIN IS A LITTLE BETTER AT THIS TIME. PATIENT IS HAVING A PROCUTIVE COUGH AT WITH BLOOD TINGED SPUTUM.
--- NOTE | 2017-02-14 08:55 | NUR ---
PATIENT SITTING UP IN BED AFTER EATING. STATES SHE IS FEELING BETTER. MEDS GIVEN AND PATIENT TOLERATED WELL. CALL LIGHT WITHIN REACH, BED IN LOW POSITION.
--- NOTE | 2017-02-14 09:46 | NUR ---
DR. VIRK HERE IN TO SEE PATIENT.
--- NOTE | 2017-02-14 10:31 | NUR ---
PATIENT IS COMPLAINING OF MIGRAINE HEADACHE, MED GIVEN PER ORDER. IV INTACT AND PATENT. CALL LIGHT WITHIN REACH AND BED IN LOW POSITION.
--- NOTE | 2017-02-14 12:52 | NUR ---
Nutrition Follow Up: Pt was asleep at the time of RD visit. Interview deferred. Pt is eating 35% meal avg on a diabetic [facility] soft diet with honey thick liquids. Wt gain since admit noted. +BM 02/13/17. Labs reviewed - Glucose elevated. Meds noted including Solu-Medrol, Lasix. Rec continue current diet. RD following.
--- NOTE | 2017-02-14 13:32 | NUR ---
DR. SMILEY HERE IN TO SEE PATIENT, HE SPOKE WITH PATIENT AND .
--- NOTE | 2017-02-14 13:32 | NUR ---
NEW ORDERS RECEIVED.
--- NOTE | 2017-02-14 13:33 | NUR ---
NICOLE HERE TO PLACE MIDLINE.
--- NOTE | 2017-02-14 14:30 | NUR ---
PATIENT IS SLEEPING WITH LESS LABORED RESPIRATIONS AT THIS TIME. PATIENT IS RELAXED FOR THE FIRST TIME THIS SHIFT. PATINT IS ORIENTED X3. CALL LIGHT WITHIN REACH AND BED IN LOW POSITION.
--- NOTE | 2017-02-14 16:00 | NUR ---
DR. SMILEY HERE TO SEE SCOTT NEW ORDERS RECEIVED.
--- NOTE | 2017-02-14 16:12 | NUR ---
PRIMACOR GIVEN PER MD ORDER.
--- NOTE | 2017-02-14 16:45 | NUR ---
PATIENT IS RESTING WITH EYES CLOSED. AROUSES TO VERBAL STIMULI EASILY. ORIENTED X4.
--- NOTE | 2017-02-14 19:15 | NUR ---
REPORT RECIEVED, SHIFT ASSESSMENT COMPLETE, PT ALERT AND ORIENTED, ON OXYMIZER WITH 98% O2 SAT. CRACKLES HEARD IN B/L UPPER LOBES, DIMINISHED IN B/L LOWER LOBES, S1S2, CM-NSR, PATENT LEFT UPPER ARM MIDLINE...SEE IV FLOW SHEET...ABDOMEN IS SOFT AND ROUND WITH ACTIVE BS, PATENT F/C WITH YELLOW UOP, ALL PPP, VSS, WILL CON'T TO MONITOR
--- NOTE | 2017-02-14 21:00 | NUR ---
NO VISITORS AT THIS TIME, WILL CON'T TO MONITOR
--- NOTE | 2017-02-14 23:10 | NUR ---
REASSESSMENT COMPLETE, PT LABORED DYSPNEA AT THIS TIME, PLACED ON BIPAP, PARTIAL LINEN CHANGE, WILL CON'T TO MONITOR
[2017-02-15] VITALS (25 sets, daily range): BP systolic 90–133; BP diastolic 51–75
--- NOTE | 2017-02-15 01:05 | NUR ---
NO NEEDS NOTED, WILL CON'T TO MONITOR
--- NOTE | 2017-02-15 03:15 | NUR ---
PT RESTING AT THIS TIME, WILL CON'T TO MONITOR
--- NOTE | 2017-02-15 03:15 | NUR ---
REASSESSMENT COMPLETE, NO CHANGES NOTED, PT AWAKE AT THIS TIME, DENIES ANY NEEDS, VSS, CALL LIGHT IN REACH
[2017-02-15 04:41] LABS: CALCIUM 8.1 mg/dL (8.5-10.1); CARBON DIOXIDE 31.2 mmol/L (21.0-32.0); CHLORIDE - SERUM 104 mmol/L (98-107); MAGNESIUM - SERUM 1.7 mg/dL (1.8-2.4); SODIUM 142 mmol/L (136-145)
[2017-02-15 04:42] LABS: BASOPHILS 0 % (0-2); EOSINOPHILS 0.6 % (0-7); HEMATOCRIT 30.2 % (36.0-48.0); HEMOGLOBIN 9.4 g/dL (12-16); IMMATURE GRANULOCYTES 0.3 % (0-5); LYMPHOCYTES 8.7 % (15-50); MCH 26.1 pg (26.0-34.0); MCHC 31.1 g/dL (31.0-37.0); MCV 83.9 fL (80.0-100.0); MEAN PLATELET VOLUME 10.7 fL (7.4-10.4); MONOCYTES 2.4 % (2-11); PLATELET COUNT 85 10x3/uL (130-400); RDW 16.2 % (11.5-14.5); WBC 19.3 10x3/uL (4.8-10.8)
[2017-02-15 04:50] LABS: CALC OSMOLALITY 290 mosm/kg (275-300); CREATININE - SERUM 0.8 mg/dL (0.6-1.3); GLUCOSE 91 mg/dL (74-106); POTASSIUM - SERUM 3.4 mmol/L (3.5-5.1); UREA NITROGEN 36 mg/dL (7-18); eGFR NON AFRICAN AMERICAN 77 mL/min (90-120)
--- NOTE | 2017-02-15 05:10 | NUR ---
PT RESTING AT THIS TIME, WILL CON'T TO MONITOR
[2017-02-15 05:33] LABS: PLATELET ESTIMATE DECREASED
--- NOTE | 2017-02-15 07:15 | NUR ---
PATIENT IS RESTING WITH EYES CLOSED AT THIS TIME. CALL LIGHT WITHIN REACH, BED IN LOW POSITION.
--- NOTE | 2017-02-15 09:30 | NUR ---
PATIENT IS RESTING WITH EYES CLOSED. CALL LIGHT WITHIN REACH AND BED IN LOW POSITION.
--- NOTE | 2017-02-15 10:05 | NUR ---
PATIENT HAD HARD FORMED BROWN BM USING BED ROJAS. STOOL SAMPLE COLLECTED AND TAKEN TO LAB.
--- NOTE | 2017-02-15 10:38 | NUR ---
DR. VIRK HERE IN TO SEE PATIENT.
--- NOTE | 2017-02-15 11:20 | NUR ---
CALLED TO CHECK WITH PHARMACY ABOUT VANC TROUGH BEING 23.1 AT 2323, PHARMACY ADVISED TO HOLD VANC THIS DOSE.
--- NOTE | 2017-02-15 13:11 | NUR ---
PATIENT BEING TRANSPORTED VIA BED TO CT.
--- NOTE | 2017-02-15 14:40 | NUR ---
DR. SMILEY HERE IN TO SEE PATIENT.
--- NOTE | 2017-02-15 15:23 | NUR ---
AT BEDSIDE, PATIENT IS AWAKE TALKING WTIH HIM, AND DENIES ANY NEEDS. CALL LIGHT WITHIN REACH, BED IN LOW POSITION.
--- NOTE | 2017-02-15 15:41 | NUR ---
Patient Name: IDALIA DALAL Encounter No: [id number] : 1955 Primary Insurance: MEDICAID [facility] [place] Date: 01-31-2017 Planned Disposition: Home with Home Health External Planned Provider: [facility] DCP follow-up note: Patient and family in agreement with discharge plan. No changes to plan. Case management will follow and assist as needed. Deidra Smith
--- NOTE | 2017-02-15 17:44 | NUR ---
PATIENT IS STILL RESTING AT THIS TIME. PATIENT DENIES ANY NEEDS OR PAIN. CALL LIGHT WITHIN REACH AND BED IN LOW POSITION.
[2017-02-16] VITALS (30 sets, daily range): BP systolic 96–143; BP diastolic 52–80
[2017-02-16 04:30] LABS: BASOPHILS 0 % (0-2); EOSINOPHILS 0 % (0-7); HEMATOCRIT 26.5 % (36.0-48.0); HEMOGLOBIN 8.4 g/dL (12-16); IMMATURE GRANULOCYTES 0.2 % (0-5); LYMPHOCYTES 4.1 % (15-50); MCH 26.2 pg (26.0-34.0); MCHC 31.7 g/dL (31.0-37.0); MCV 82.6 fL (80.0-100.0); MEAN PLATELET VOLUME 10.6 fL (7.4-10.4); MONOCYTES 1.3 % (2-11); NEUTROPHILS 94.4 % (40-80); PLATELET COUNT 75 10x3/uL (130-400); RBC 3.21 10x6/uL (4.00-5.40); RDW 15.7 % (11.5-14.5)
[2017-02-16 04:31] LABS: WBC 11.9 10x3/uL (4.8-10.8)
[2017-02-16 04:36] LABS: ANION GAP 6.7 mmol/L (8-16); CALCIUM 7.8 mg/dL (8.5-10.1); CARBON DIOXIDE 34.1 mmol/L (21.0-32.0); CREATININE - SERUM 0.9 mg/dL (0.6-1.3); MAGNESIUM - SERUM 1.9 mg/dL (1.8-2.4); POTASSIUM - SERUM 3.8 mmol/L (3.5-5.1)
--- NOTE | 2017-02-16 05:44 | NUR ---
PT AWAKE AND ALERT. DENIES DIFFICULTY BREATHING. VSS. SPENT A TOTAL OF 3 HRS ON BIPAP TONIGHT. THE REST OF THE TIME SHE HAS BEEN ON OXIMIZER. SHE IS TOLERATING HER DIET WELL. ONE BM EARLIER IN THE SHIFT. FREQUENTLY MOVING FROM SIDE TO SIDE INDEPENDENTLY. SMILING EACH TIME I GO INTO THE ROOM. HER CONDITION AND MOOD ARE IMPROVED.
--- NOTE | 2017-02-16 09:42 | NUR ---
NUTRITION F/U CHART REVIEWED, PT VISIT. PT STATES SHE HAD A GOOD BREAKFAST. REPORTS GOOD INTAKE RECENT MEALS. WILL CONTINUE TO PROVIDE ADA DIET, MONITOR INTAKE. RD FOLLOWING
--- NOTE | 2017-02-16 19:00 | NUR ---
REPORT RECIEVED, SHIFT ASSESSMENT COMPLETE, PLEASE SEE FLOW SHEETS FOR DETAILS. A&O X4. DENIES PAIN/NEEDS ATT. TURNED SELF TO RIGHT SIDE. LUNGS DIMINISHED. S1S2 AUSCULTATED AND NSR NOTED ON MONITOR AT 90. BS ACTIVE X4. PPP. PUPILS 3MM AND PERRLA. LEFT UPPER ARM MIDLINE CDI, BIOPATCH IN PLACE, PLEASE SEE IV FLOW SHEETS FOR FLUIDS RUNNING. BED LOW AND LOCKED, CALL LIGHT IN REACH. WILL CPOC.
--- NOTE | 2017-02-16 21:00 | NUR ---
MOVES SELF AROUND IN BED, CURRENTLY ON BACK. DENIES PAIN/NEEDS ATT. VSS, BED LOW AND LOCKED, CALL LIGHT IN REACH. WILL CPOC.
--- NOTE | 2017-02-16 23:00 | NUR ---
REASSESSMENT COMPLETE, C/O ABDOMINAL DISCOMFORT, ABDOMEN IN DISTENDED AND SOFT, CHECKED STONE DRAINAGE SYSTEM, CORRECTED LOOPS AND IT STARTED TO DRAIN AGAIN, PT ALSO STATED THAT SHE HAD BROCOLI SOUP AND COULD HAVE SOME GAS LINGERING, WILL CONTINUE TO MONITOR THIS. VSS OTHERWISE. BED IS LOW AND LOCKED, CALL LIGHT IN REACH. WILL CPOC.
[2017-02-17] VITALS (24 sets, daily range): BP systolic 94–139; BP diastolic 41–100
--- NOTE | 2017-02-17 00:53 | NUR ---
RESTING, BIPAP ON NOW, NO S&S OF DISTRESS NOTED. BED IS LOW AND LOCKED, CALL LIGHT IS IN REACH. VSS. WILL CPOC.
--- NOTE | 2017-02-17 02:41 | NUR ---
REASSESSMENT COMPLETE, PLEASE SEE FLOW SHEETS FOR DETAILS. TURNING TO LEFT SIDE AND LETTING GAS IMPROVED ABD DISCOMFORT. DENIES ANY OTHER PAIN/NEEDS ATT. BED LOW AND LOCKED, CALL LIGHT IN REACH. WILL CPOC.
[2017-02-17 04:31] LABS: BASOPHILS 0 % (0-2); EOSINOPHILS 0.1 % (0-7); HEMATOCRIT 27.3 % (36.0-48.0); IMMATURE GRANULOCYTES 0.3 % (0-5); LYMPHOCYTES 3.3 % (15-50); MCH 27.2 pg (26.0-34.0); MCV 82.5 fL (80.0-100.0); MEAN PLATELET VOLUME 11.1 fL (7.4-10.4); MONOCYTES 1.1 % (2-11); NEUTROPHILS 95.2 % (40-80); PLATELET COUNT 97 10x3/uL (130-400); RBC 3.31 10x6/uL (4.00-5.40); RDW 15.6 % (11.5-14.5); WBC 15.5 10x3/uL (4.8-10.8)
[2017-02-17 04:42] LABS: CALC OSMOLALITY 269 mosm/kg (275-300); CALCIUM 7.4 mg/dL (8.5-10.1); CARBON DIOXIDE 31.3 mmol/L (21.0-32.0); CHLORIDE - SERUM 97 mmol/L (98-107); CREATININE - SERUM 0.8 mg/dL (0.6-1.3); GLUCOSE 160 mg/dL (74-106); MAGNESIUM - SERUM 1.6 mg/dL (1.8-2.4); POTASSIUM - SERUM 3.7 mmol/L (3.5-5.1); SODIUM 131 mmol/L (136-145); UREA NITROGEN 24 mg/dL (7-18); eGFR NON AFRICAN AMERICAN 77 mL/min (90-120)
--- NOTE | 2017-02-17 05:00 | NUR ---
SLEEPING, NO S&S OF ACUTE DISTRESS NOTED. BED LOW AND LOCKED, CALL LIGHT IN REACH. VSS, WILL CPOC.
--- NOTE | 2017-02-17 07:15 | NUR ---
UP TO CHAIR FOR BREAKFAST
--- NOTE | 2017-02-17 10:41 | NUR ---
AMBULATING WITH PT
--- NOTE | 2017-02-17 10:46 | NUR ---
RETURNED FOR AMBULATION 160 FEET WITH PT ASSISTANCE
--- NOTE | 2017-02-17 11:11 | NUR ---
PATIENT UP TO BSC AFTER AMBULATION, PRODUCED A NORMAL SIZE SOFT FORMED BROWN COLOR STOOL.
--- NOTE | 2017-02-17 11:11 | NUR ---
BACK TO BED AT PRESENT.
--- NOTE | 2017-02-17 12:24 | NUR ---
MADE MILK SHAKES OUT OF PATIENTS ON TRAY ENSURE TO HELP HER INCREASE CALORIC INTAKE.
--- NOTE | 2017-02-17 13:05 | NUR ---
VANC LEVEL HAS BEEN DRAWN BY POLICE INSPECTOR, WAITING FOR RESULT BEFORE HANGING CURRENTLY DUE DOSE.
--- NOTE | 2017-02-17 19:00 | NUR ---
REPORT RECIEVED, SHIFT ASSESSMENT COMPLETE, PLEASE SEE FLOW SHEETS FOR DETAILS. FAMILY AT BEDSIDE. C/O CHEST/BACK PAIN 12/04. C/O GASSINESS FEELING IN BELLY, SUGGESTED TURNING TO LEFT SIDE AND LETTING GAS. STATED SHE WOULD DO THAT. STATED SHE HAD A GOOD DAY. IS A&O X4. LUNGS CLEAR IN UPPER LOBES AND DIMINISHED IN LOWER LOBES. BS ACTIVE X4. PPP. S1S2 HEARD, NSR NOTED ON MONITOR. SITTING UP IN THE BED. DENIES ANY NEEDS ATT. BED LOW AND LOCKED, CALL LIGHT IN REACH. WILL CPOC.
--- NOTE | 2017-02-17 21:00 | NUR ---
RESTING, TURNED SELF TO LEFT SIDE. C/O PAIN STILL, WILL PAGE MD TO SEE IF WE CAN RESTART NORCO. DENIES ANY OTHER NEEDS ATT. VSS, BED LOW AND LOCKED, CALL LIGHT IN REACH. WILL CPOC.
--- NOTE | 2017-02-17 22:28 | NUR ---
DR VIRK CALLED BACK FROM [facility] AND [facility] CORTES TO BE RESTARTED.
--- NOTE | 2017-02-17 23:00 | NUR ---
REASSESSMENT COMPLETE, INCONTINENT OF BOWEL IN BED, DID NOTICE IT HAPPENED AFTERWARD, THIS WAS CLEANED UP AND STONE CARE PROVIDED. DENIES ANY OTHER NEEDS ATT. PELASE SEE FLOW SHEETS FOR ASSESSMENT DETAILS. VSS. WILL CPOC.
[2017-02-18] VITALS (23 sets, daily range): BP systolic 103–143; BP diastolic 52–92
--- NOTE | 2017-02-18 00:56 | NUR ---
WASHED HAIR, PLACED PILLOWS FOR POSITIONAL COMFORT. DENIES ANY PAIN/NEEDS ATT. BED LOW AND LOCKED, CALL LIGHT IN REACH. VSS, WILL CPOC.
--- NOTE | 2017-02-18 03:00 | NUR ---
REASSESSMENT COMPLETE, PLEASE SEE FLOW SHEETS FOR DETAILS. DENIES PAIN/NEEDS ATT. VSS, BED LOW AND LOCKED, CALL LIGHT IN REACH. WILL CPOC.
--- NOTE | 2017-02-18 05:00 | NUR ---
C/O GAS DISCOMFORT IN ABD, NO OTHER PAIN ATT. BED LOW AND LOCKED, CALL LIGHT IN REACH. VSS, WILL CPOC.
[2017-02-18 06:56] LABS: BASOPHILS 0 % (0-2); EOSINOPHILS 0.1 % (0-7); HEMATOCRIT 27.7 % (36.0-48.0); HEMOGLOBIN 8.7 g/dL (12-16); IMMATURE GRANULOCYTES 0.4 % (0-5); LYMPHOCYTES 7.4 % (15-50); MCH 25.8 pg (26.0-34.0); MCHC 31.4 g/dL (31.0-37.0); MCV 82.2 fL (80.0-100.0); MEAN PLATELET VOLUME 10.8 fL (7.4-10.4); MONOCYTES 2.4 % (2-11); NEUTROPHILS 89.7 % (40-80); PLATELET COUNT 105 10x3/uL (130-400); RBC 3.37 10x6/uL (4.00-5.40); RDW 15.6 % (11.5-14.5); WBC 13.1 10x3/uL (4.8-10.8)
[2017-02-18 07:12] LABS: CALC OSMOLALITY 270 mosm/kg (275-300); CALCIUM 7.4 mg/dL (8.5-10.1); CARBON DIOXIDE 31.3 mmol/L (21.0-32.0); CHLORIDE - SERUM 98 mmol/L (98-107); CREATININE - SERUM 0.8 mg/dL (0.6-1.3); GLUCOSE 126 mg/dL (74-106); POTASSIUM - SERUM 4.1 mmol/L (3.5-5.1); SODIUM 132 mmol/L (136-145); UREA NITROGEN 25 mg/dL (7-18); eGFR NON AFRICAN AMERICAN 77 mL/min (90-120)
--- NOTE | 2017-02-18 07:34 | NUR ---
UP TO CHAIR FOR BREAKFAST, TOLERATED WELL, BALANCE ASSISTANCE ONLY.
--- NOTE | 2017-02-18 09:17 | NUR ---
[place]SI[place]ED PAT[place] [facility] PRODUCED A HEALTHY SIZE SOFT, FORMED, BROWN STOOL.
--- NOTE | 2017-02-18 09:37 | NUR ---
AWAKE, ALERT AND ORIENTED, SITTING UP IN CHAIR WATCHING TV, DENIES ANY NEED AT PRESENT.
--- NOTE | 2017-02-18 11:21 | NUR ---
AMBULATING WITH PT
[2017-02-18 14:09] LABS: FUNGUS STAIN RESULT 1 Yeast observed (())
--- NOTE | 2017-02-18 17:00 | NUR ---
PATIENT HAS HAD TWO LARGE STOOLS TODAY AND STATES SHE FEELS MUCH BETTER.
--- NOTE | 2017-02-18 19:00 | NUR ---
REPORT RECIEVED, SHIFT ASSESSMENT COMPLETE, PLEASE SEE FLOW SHEETS FOR DETAILS. C/O PAIN 12/04, OFFERED PAIN MEDS, SAYS SHE WANTS PAIN MEDS WITH NIGHT MEDS. DENIES ANY OTHER NEEDS ATT. VSS ATT, BED LOW AND LOCKED, CALL LIGHT IN REACH. WILL CPOC.
--- NOTE | 2017-02-18 20:50 | NUR ---
LEAKAGE AROUND STONE CATH NOTED, PARTIAL LINEN CHANGE PROVIDED AND STONE CARE PROVIDED. VSS ATT, DENIES ANY OTHER NEEDS ATT, PAIN DOWN TO 4/10. BED LOW AND LOCKED, CALL LIGHT IN REACH, WILL CPOC.
--- NOTE | 2017-02-18 23:00 | NUR ---
REASSESSMENT COMPLETE, PLEASE SEE FLOW SHEETS FOR DETAILS. NO CHANGES FROM PREVIOUS ASSESSMENT NOTED. VSS ATT, BED LOW AND LOCKED, CALL LIGHT IN REACH. WILL CPOC.
[2017-02-19] VITALS (24 sets, daily range): BP systolic 94–128; BP diastolic 48–89
--- NOTE | 2017-02-19 01:00 | NUR ---
RESTING, NO S&S OF DISTRESS NOTED. BED LOW AND LOCKED, CALL LIGHT IN REACH. VSS, WILL CPOC.
--- NOTE | 2017-02-19 01:28 | NUR ---
PT C/O VERY BAD PAIN IN CHEST AND BACK, GAVE PAIN MEDS PER ORDERS AND ASSISTED WITH TURNING IN BED AND POSITIONING FOR COMFORT. DENIES ANY OTHER NEEDS ATT. BED LOW AND LOCKED, CALL LIGHT IN REACH. WILL CPOC.
--- NOTE | 2017-02-19 03:03 | NUR ---
REASSESSMENT COMPLETE, PLEASE SEE FLOW SHEETS FOR DETAILS. MINIMAL ASSISTANCE WITH REPOSITIONING. PROVIDED A BRACING PILLOW FOR STOMACH WHILE COUGHING. NO NOTABLE CHANGES FROM PREVIOUS ASSESSMENT. BED LOW AND LOCKED, CALL LIGHT IN REACH. VSS, WILL CPOC.
[2017-02-19 04:04] LABS: BASOPHILS 0 % (0-2); EOSINOPHILS 0.5 % (0-7); HEMATOCRIT 28.4 % (36.0-48.0); HEMOGLOBIN 8.8 g/dL (12-16); IMMATURE GRANULOCYTES 0.2 % (0-5); LYMPHOCYTES 6.4 % (15-50); MCH 25.6 pg (26.0-34.0); MCV 82.6 fL (80.0-100.0); MEAN PLATELET VOLUME 10.5 fL (7.4-10.4); MONOCYTES 2.5 % (2-11); NEUTROPHILS 90.4 % (40-80); PLATELET COUNT 125 10x3/uL (130-400); RBC 3.44 10x6/uL (4.00-5.40); RDW 15.7 % (11.5-14.5)
[2017-02-19 04:24] LABS: CALC OSMOLALITY 280 mosm/kg (275-300); CALCIUM 7.6 mg/dL (8.5-10.1); CARBON DIOXIDE 33.4 mmol/L (21.0-32.0); CHLORIDE - SERUM 96 mmol/L (98-107); CREATININE - SERUM 0.8 mg/dL (0.6-1.3); MAGNESIUM - SERUM 1.6 mg/dL (1.8-2.4); POTASSIUM - SERUM 4.6 mmol/L (3.5-5.1); SODIUM 134 mmol/L (136-145); UREA NITROGEN 29 mg/dL (7-18); eGFR NON AFRICAN AMERICAN 77 mL/min (90-120)
[2017-02-19 04:25] LABS: GLUCOSE 225 mg/dL (74-106)
--- NOTE | 2017-02-19 05:00 | NUR ---
RESTING, NO S&S OF DISTRESS NOTED. VSS. BED LOW AND LOCKED, CALL LIGHT IN REACH. WILL CPOC.
--- NOTE | 2017-02-19 07:53 | NUR ---
PT IS SLEEPING ON LEFT SIDE. LUNG SOUNDS CLEAR ON UPPER LOBES. DIMINISHED ON LOWER LOBES. BS ACTIVE X 4 QUADRANTS. S1S2 AUDIBLE. ON TELEMETRY WITH HR 74 SYNUS RHYTHM. HAS LEFT UPPER ARM MIDLINE WITH DOBUTAMINE INFUSING AT 7MCG/KG/MIN AND NS AT 10ML/HR. STONE SECURE TO RIGHT LEG ON LEFT SIDE ON BED. YELLOW CONCENTRATED URINE NOTED. ON 2L OF O2 VIA NC. SCD'S AND NONSKID SOCKS. BED LOW POSITON. WILL CONTINUE TO MONITOR.
[2017-02-19 08:09] LABS: VIRAL - RESULT No virus isolated. (())
--- NOTE | 2017-02-19 08:44 | NUR ---
AM MEDS GIVEN. PT RATED PAIN 8/10 ON ABDOMEN AND HEAD. GAVE NORCO 5MG FOR PAIN. ZOFRAN GIVEN TO HELP SETTLE HER STOMACH. PT SITTING UP EATING BREAKFAST. NO OTHER NEEDS AT THIS TIME. WILL CONTINUE TO MONITOR.
--- NOTE | 2017-02-19 09:00 | NUR ---
AM MEDS GIVEN. ASSISTED PT WITH BREAKFAST. ATE 100% AND HAD ABOUT 600ML OF FLUID. RELEASED RESTRAINTS FOR A FEW MINUTES. HAD TO PUT THEM BACK DUE TO PT REFUGIO ON IV TUBING. WILL CONTINUE TO MONITOR.
--- NOTE | 2017-02-19 10:45 | NUR ---
NUTRITION F/U CHART REVIEWED. PT UP WITH PHYSICAL THERAPY WALKING. ADA MECH SOFT DIET, HONEY THICK LIQUIDS. WILL CONTINUE TO PROVIDE CURRENT DIET, MONITOR PT PROGRESS. RD FOLLOWING
--- NOTE | 2017-02-19 11:23 | NUR ---
BLOOD SUGAR 222. 8 UNITS OF REGULAR INSULIN GIVEN PER SLIDING SCALE. PT RESTING ON HER RIGHT SIDE. DENIES OTHER NEEDS AT THIS TIME. WILL CONTINUE TO MONITOR.
--- NOTE | 2017-02-19 13:58 | NUR ---
PT RESTING QUIETLY. BED AT 45 DEGREE ANGLE. ATE ABOUT 30% OF LUNCH. DENIES OTHER NEEDS AT THIS TIME. WILL CONITNUE TO MONITOR.
--- NOTE | 2017-02-19 15:14 | NUR ---
NORCO 5MG TAB GIVEN FOR PAIN RATED 9/10 ON ABDOMEN. ZOFRAN GIVEN TO HELP SETTLE HER STOMACH. NO OTHER NEEDS AT THIS TIME.
--- NOTE | 2017-02-19 16:39 | NUR ---
BLOOD SUGAR 211. 8 UNITS OF INSULIN REG GIVEN PER SLIDING SCALE.
--- NOTE | 2017-02-19 18:00 | NUR ---
PT RESTING COMFORTABLY ATE ABOUT 75% OF DINNER AND DRANK 600ML OF FLUID. DENIES ANY NEEDS AT THIS TIME.
--- NOTE | 2017-02-19 19:40 | NUR ---
REC'D PT RESTING IN BED ON O2 @ 2LITERS WATCHING TV, PT COMPLAINS OF RIGHT SIDED CHEST PAIN THAT IS INTERMITTENT RATING "8" ON 0-10 PAIN SCALE, INFORMED PT IT WAS TO EARLY FOR PAIN MEDICATION, STATES "THAT IS OKAY JUST BRING IT WHEN IT IS DUE", LEFT UPPER ARM MIDLINE DRSG CDI SEE FLOWSHEET FOR DRIPS, STONE PATENT DRAINING CONCENTRATED URINE, BILAT SCD'S INTACT, PPP, SR UP X 2, CALL LIGHT IN REACH.
--- NOTE | 2017-02-19 20:50 | NUR ---
EVENING MEDS GIVEN AND NORCO PROVIDED FOR COMPLAINTS OF PAIN, PT STATED THAT NORCO MAKES HER NAUSEATED, ZOFRAN GIVEN SLOW IVP, PT TOOK MEDS IN APPLESAUCE WITHOUT DIFFICULTY, VSS.
--- NOTE | 2017-02-19 21:10 | NUR ---
FAMILY AT BS, UPDATE PROVIDED, PT DENIES FURTHER NEEDS
--- NOTE | 2017-02-19 23:00 | NUR ---
REASSESSMENT COMPLETED, PT RESTING EYES CLOSED ON LEFT SIDE, NO CHANGES FROM PREVIOUS ASSESSMENT, VSS, SR UP X 2, VISIBLE TO NURSES STATION.
[2017-02-20] VITALS (23 sets, daily range): BP systolic 91–134; BP diastolic 47–93
--- NOTE | 2017-02-20 03:00 | NUR ---
REASSESSMENT COMPLETED, NO CHANGES FROM PREVIOUS ASSESSMENT, PT AWAKE, REQUESTING SNACK, SNACK PROVIDED, WILL CONT TO MONITOR FOR CHANGES.
[2017-02-20 04:14] LABS: BASOPHILS 0.1 % (0-2); EOSINOPHILS 1.1 % (0-7); HEMATOCRIT 28.1 % (36.0-48.0); HEMOGLOBIN 8.7 g/dL (12-16); IMMATURE GRANULOCYTES 0.3 % (0-5); LYMPHOCYTES 7.1 % (15-50); MCH 25.6 pg (26.0-34.0); MCV 82.6 fL (80.0-100.0); MEAN PLATELET VOLUME 11.3 fL (7.4-10.4); MONOCYTES 2.7 % (2-11); NEUTROPHILS 88.7 % (40-80); RDW 15.7 % (11.5-14.5); WBC 11.9 10x3/uL (4.8-10.8)
[2017-02-20 04:17] LABS: PLATELET COUNT 155 10x3/uL (130-400)
[2017-02-20 04:22] LABS: CALC OSMOLALITY 275 mosm/kg (275-300); CALCIUM 7.5 mg/dL (8.5-10.1); CARBON DIOXIDE 33.9 mmol/L (21.0-32.0); CHLORIDE - SERUM 97 mmol/L (98-107); CREATININE - SERUM 0.8 mg/dL (0.6-1.3); GLUCOSE 183 mg/dL (74-106); PHOSPHOROUS 3.1 mg/dL (2.5-4.9); POTASSIUM - SERUM 4.6 mmol/L (3.5-5.1); SODIUM 132 mmol/L (136-145); UREA NITROGEN 29 mg/dL (7-18); eGFR NON AFRICAN AMERICAN 77 mL/min (90-120)
--- NOTE | 2017-02-20 05:00 | NUR ---
LAB AT FOR AM LAB DRAW
--- NOTE | 2017-02-20 06:00 | NUR ---
NO VISITORS IN AT THIS TIME, PT REQUESTING ICE CHIPS, ICE CHIPS PROVIDED, PT DENIES FURTHER NEEDS.
--- NOTE | 2017-02-20 07:04 | NUR ---
PT COMPLAINS OF PRESSURE IN CHEST, RATING "8" ON 0-10 PAIN SCALE, NORCO 5/325 GIVEN PO AND ZOFRAN 4MG GIVEN SLOW IVP, PT DENIES FURTHER NEEDS, WILL REPORT TO ONCOMING SHIFT.
--- NOTE | 2017-02-20 08:50 | NUR ---
MORNING MEDS GIVEN WITH NO COMPLICATIONS. DENIES OTHER NEEDS AT THIS TIME.
[2017-02-20 10:19] LABS: FUNGUS CULTURE RESULT 1 Candida albicans (())
--- NOTE | 2017-02-20 11:40 | NUR ---
BLOOD SUGAR 280. 10 UNITS OF HUMULIN REG GIVEN PER SLIDING SCALE. PT SITTING IN CHAIR. NO OTHER NEEDS AT THIS TIME. WILL CONTINUE TO MONITOR.
--- NOTE | 2017-02-20 15:42 | NUR ---
PT RATED PAIN 9/10 ON HEAD AND CHEST. NORCO 5MG TAB GIVEN. ZOFRAN GIVEN FOR NAUSEA. PT DENIES OTHER NEEDS AT THIS TIME. WILL CONTINUE TO MONITOR.
--- NOTE | 2017-02-20 16:53 | NUR ---
BLOOD SUGAR 286. 10 UNITS OF REGULAR INSULIN GIVEN PER SLIDING SCALE.
--- NOTE | 2017-02-20 18:00 | NUR ---
PT SITTING UP IN BED. DENIES NEEDS AT THIS TIME.
--- NOTE | 2017-02-20 19:45 | NUR ---
REPORT REC'D AND CARE ASSSUMED, REC'D PT SITTING UP IN BED WATCHING TV, PT REQUESTING ICE CREAM TO GO WITH ENSURE SHAKE, ICE CREAM PROVIDED, LEFT UPPER ARM MIDLINE CATH WITH DOBUTAMINE @ 7MCG/KG/MIN OR 13.7CC/HR, ABD DISTENDED, BS ACTIVE, PT REPORTS PASSING GAS, STONE PATENT DRAINING CONCENTRATED URINE, BILAT SCD'S INTACT, PPP, SCDS REMOVED FOR BREAK SO PT COULD APPLY LOTION, DENIES FURTHER NEEDS, SR UP X 2, BED IN LOW POSITION, CALL LIGHT IN REACH.
--- NOTE | 2017-02-20 21:15 | NUR ---
NO VISITORS IN AT THIS TIME, EVENING MEDS GIVEN WITH HONEY THICK WATER AND APPLESAUCE PER PT REQUEST.
--- NOTE | 2017-02-20 21:40 | NUR ---
PT ASSISTED X 1 UP TO BSC, CALL LIGHT IN REACH.
--- NOTE | 2017-02-20 22:00 | NUR ---
PT HAD MEDIUM FORMED BROWN STOOL, PERICARE PROVIDED AND FABIOLA'S BUTT PASTE APPLIED FOR COMPLAINTS OF TAILBONE BEING SORE, NO REDNESS NOTED, PT ASSISTED X 1 BACK TO BED, ASSISTED TO POSITION FOR COMFORT, WILL CONT TO MONITOR FOR CHANGES.
--- NOTE | 2017-02-20 23:20 | NUR ---
REASSESSMENT COMPLETED, VSS, PT RESTING ON SIDE, PILLOW BETWEEN KNEES, DOBUTAMINE CONTINUES @ 7MCG/KG/MIN, WILL MONITOR FOR CHANGES.
[2017-02-21] VITALS (24 sets, daily range): BP systolic 106–140; BP diastolic 57–82
--- NOTE | 2017-02-21 01:30 | NUR ---
NO CHANGES IN STATUS.
--- NOTE | 2017-02-21 03:40 | NUR ---
PT AWAKE, COMPLAINS OF ABDOMINAL DISCOMFORT, ICE PACK PROVIDED ON REQUEST, ZOFRAN 4MG GIVEN SLOW IVP FOR NAUSEA, WILL MONITOR FOR CHANGES.
--- NOTE | 2017-02-21 04:30 | NUR ---
PT RESTING IN BED EYES CLOSED, VSS, NO DISTRESS NOTED.
[2017-02-21 05:06] LABS: BASOPHILS 0 % (0-2); EOSINOPHILS 1.5 % (0-7); HEMATOCRIT 25.6 % (36.0-48.0); IMMATURE GRANULOCYTES 0.3 % (0-5); LYMPHOCYTES 8.1 % (15-50); MCH 25.7 pg (26.0-34.0); MCHC 31.3 g/dL (31.0-37.0); MCV 82.3 fL (80.0-100.0); MONOCYTES 5.5 % (2-11); NEUTROPHILS 84.6 % (40-80); PLATELET COUNT 182 10x3/uL (130-400); RBC 3.11 10x6/uL (4.00-5.40); WBC 11.9 10x3/uL (4.8-10.8)
[2017-02-21 05:27] LABS: ALBUMIN 1.8 g/dL (3.4-5.0); ALKALINE PHOSPHATASE 88 U/L (46-116); ALT (SGPT) 96 U/L (10-68); CALC OSMOLALITY 280 mosm/kg (275-300); CALCIUM 7.6 mg/dL (8.5-10.1); CARBON DIOXIDE 33.9 mmol/L (21.0-32.0); CHLORIDE - SERUM 92 mmol/L (98-107); CREATININE - SERUM 0.8 mg/dL (0.6-1.3); MAGNESIUM - SERUM 1.8 mg/dL (1.8-2.4); POTASSIUM - SERUM 4.9 mmol/L (3.5-5.1); PROTEIN - SERUM 5.6 g/dL (6.4-8.2); SODIUM 131 mmol/L (136-145); UREA NITROGEN 33 mg/dL (7-18); eGFR NON AFRICAN AMERICAN 77 mL/min (90-120)
[2017-02-21 05:31] LABS: GLUCOSE 297 mg/dL (74-106)
--- NOTE | 2017-02-21 06:00 | NUR ---
NO VISITORS IN AT THIS TIME, AM MEDS GIVEN, PT DENIES NEEDS.
--- NOTE | 2017-02-21 14:14 | NUR ---
RESTING WELL ON RIGHT SIDE RESP DEEP AND REGULAR. UP IN CHAIR AND AMBULATED IN HALLS PER PT THIS AM. ALERT ATE FAIR AT BREAKFAST AND LUNCH. NO CHOKING OR COUGHING DURING MEALS. ADMITS TO BEING WEAK AND TIRED. 1010 DOBUTAMINE DECREASED TO 6.9 MCG/KG/MIN. 1220 DECREASED DOBUTAMINE TO 6.8 MCG/KG/MIN. ECHO DONE. MIDLINE IV ACCESS LEFT AC WITHOUT REDNESS OR SWELLING AT SITE. STONE CATH PATENT DRAINING CLOUDY YELLOW URINE. MONITOR SR. PLEASANT. OCC BACK PAIN.
--- NOTE | 2017-02-21 19:20 | NUR ---
REPORT REC'D AND CARE ASSUMED, REC'D PT ON O2 @ 2 LITERS VIA NC LAYING IN BED ON LEFT SIDE, AWAKE, ALERT, AND ORIENTED, LEFT UPPER ARM MIDLINE WITH DOBUTAMINE @ 6.6MCG/KG/MIN, CM-SR, STONE PATENT DRAINING CONCENTRATED URINE, ABD DISTENDED, BS X 4, BILAT SCDS INTACT, PPP, PT DENIES PAIN OR NEEDS, BED IN LOW POSITION, CALL LIGHT IN REACH.
--- NOTE | 2017-02-21 21:00 | NUR ---
EVENING MEDS GIVEN, FAMILY AT BS UPDATE GIVEN AND QUESTIONS ANSWERED.
--- NOTE | 2017-02-21 23:20 | NUR ---
REASSESSMENT COMPLETED, PT COMPLAINS OF ABDOMINAL PAIN, NORCO PROVIDED FOR PAIN, PT ASSISTED TO REPOSITION FOR COMFORT, PT DENIES FURTHER NEEDS.
[2017-02-22] VITALS (34 sets, daily range): BP systolic 94–124; BP diastolic 50–75
--- NOTE | 2017-02-22 01:30 | NUR ---
NO CHANGES IN STATUS AT THIS TIME.
--- NOTE | 2017-02-22 03:30 | NUR ---
REASSESSMENT COMPLETED, LAB AT BS FOR AM LAB DRAW, NO CHANGES FROM PREVIOUS ASSESSMENT, PT DENIES NEEDS, WILL CONT TO MONITOR FOR CHANGES.
--- NOTE | 2017-02-22 04:45 | NUR ---
PT AWAKE COMPLAINS OF NAUSEA, 4MG ZOFRAN GIVEN SLOW IVP, PT DENIES FURTHER NEEDS.
[2017-02-22 05:07] LABS: BASOPHILS 0.1 % (0-2); EOSINOPHILS 0.6 % (0-7); HEMATOCRIT 25.4 % (36.0-48.0); HEMOGLOBIN 7.8 g/dL (12-16); IMMATURE GRANULOCYTES 0.4 % (0-5); LYMPHOCYTES 11.1 % (15-50); MCH 25.2 pg (26.0-34.0); MCHC 30.7 g/dL (31.0-37.0); MCV 82.2 fL (80.0-100.0); MONOCYTES 5.8 % (2-11); RBC 3.09 10x6/uL (4.00-5.40); RDW 16.2 % (11.5-14.5); WBC 13.6 10x3/uL (4.8-10.8)
[2017-02-22 05:32] LABS: PLATELET COUNT 228 10x3/uL (130-400)
[2017-02-22 05:37] LABS: CARBON DIOXIDE 33.8 mmol/L (21.0-32.0); CREATININE - SERUM 0.9 mg/dL (0.6-1.3); MAGNESIUM - SERUM 1.8 mg/dL (1.8-2.4); POTASSIUM - SERUM 4.8 mmol/L (3.5-5.1)
--- NOTE | 2017-02-22 06:00 | NUR ---
AM MEDS GIVEN, NO VISITORS IN AT THIS TIME
--- NOTE | 2017-02-22 09:45 | NUR ---
PT ATE BREAKFAS AND TOOK PO MEDS W/O PROBLEMS THIS AM. UP OOB TO CHAIR. WALKED W/PT. DOBUAMINE GTT INFUSING AT 5.8MCG/KG/MIN. TITRATING DOBUTAMINE DOWN SLOWLY. P ALFONSO WELL.
--- NOTE | 2017-02-22 12:57 | NUR ---
NUTRITION F/U PT WITH ~75% INTAKE ADA [facility] SOFT DIET. HONEY THICK LIQUIDS. 75% INTAKE GLUCERNA SHAKE. CURRENTLY UP IN CHAIR. WILL CONTINUE TO PROVIDE DIET, GLUCERNA SHAKE. MONITOR PO INTAKE. RD FOLLOWING
--- NOTE | 2017-02-22 16:52 | NUR ---
1630- PT C/O SLIGHT SOB. SPO2 98%, VSS, CALLED AND REPORTED TO DR DUTTA NURSE KEVIN. REC'D ORDERS FOR CXR IN AM AND TO CONTINUE WEANING DOBUTAMINE.
--- NOTE | 2017-02-22 19:05 | NUR ---
Received patient resting in bed with eyes open watching TV, assessment completed per flowsheet. Patient AO x4, calm and cooperative. Eyes PERRLA @ 4mm with brisk response, sclera is white. S1/S2 noted NSR on telemetry with HR 78, rhythmic and regular. Breathing is even and unlabored on 3L via NC with O2 sat 97%, lung sounds clear bilateral upper and mid with diminished lower. Abdomen is soft and flat with bowel sounds active x4, non-tender. Andersen secured, concentrated yellow urine noted in collection. Full ROM all extremities with all pulses palpable, skin warm/dry with cap refill < 3 sec. Midline L AC dressing CDI, patient with Dobutamine @ 5.4 mcg/kg/min infusing. Patient denies pain or other needs at this time, all VSS and will continue to monitor.
--- NOTE | 2017-02-22 21:00 | NUR ---
Family at bedside for visitation, all questions answered to satisfaction. All HS meds given without difficulty, no further needs at this time and will continue to monitor.
--- NOTE | 2017-02-22 22:55 | NUR ---
Reassessment completed per flowsheet, patient resting in bed with eyes open watching TV. Patient AO x4, calm and cooperative. S1/S2 noted NSR on telemetry with HR 79, rhythmic and regular. Breathing is even and unlabored on 3L via NC with O2 sat 97%, lung sounds clear bilateral upper and mid with diminished lower. All pulses palpable with cap refill < 3 sec, skin warm/dry to touch. Patient repositioned for comfort, denies pain or other needs at this time. All VSS and will continue to monitor.
[2017-02-23] VITALS (29 sets, daily range): BP systolic 88–125; BP diastolic 49–89
--- NOTE | 2017-02-23 01:00 | NUR ---
Patient resting in bed with eyes closed, full bed bath/linen change performed. Patient denies pain or other needs at this time, all VSS and will continue to monitor.
--- NOTE | 2017-02-23 03:00 | NUR ---
Reassessment completed per flowsheet, patient resting in bed with eyes open. Patient AO x4, calm and cooperative. S1/S2 noted NSR on telemetry with HR 88, rhythmic and regular. Breathing is even and unlabored on 3L via NC with O2 sat 98%, lung sounds clear throughout all lobes. Patient c/o intermittent burning and aching pain midsternal chest, PRN pain/cough medication given and will reasess. All pulses palpable with cap refill < 3 sec, skin warm/dry to touch. No further needs at this time, all VSS and will continue to monitor.
[2017-02-23 03:51] LABS: BASOPHILS 0.1 % (0-2); EOSINOPHILS 0.9 % (0-7); HEMATOCRIT 24.8 % (36.0-48.0); HEMOGLOBIN 7.6 g/dL (12-16); IMMATURE GRANULOCYTES 0.5 % (0-5); MCH 25.2 pg (26.0-34.0); MCHC 30.6 g/dL (31.0-37.0); MCV 82.1 fL (80.0-100.0); MEAN PLATELET VOLUME 10.3 fL (7.4-10.4); NEUTROPHILS 84.5 % (40-80); PLATELET COUNT 257 10x3/uL (130-400); RBC 3.02 10x6/uL (4.00-5.40); WBC 15.2 10x3/uL (4.8-10.8)
[2017-02-23 04:10] LABS: ANION GAP 5.6 mmol/L (8-16); CARBON DIOXIDE 35.3 mmol/L (21.0-32.0); POTASSIUM - SERUM 4.9 mmol/L (3.5-5.1)
--- NOTE | 2017-02-23 05:00 | NUR ---
AM labs collected without difficulty, patient resting in bed with eyes closed. Denies pain or other needs at this time, all VSS and will continue to monitor.
--- NOTE | 2017-02-23 08:50 | NUR ---
UP TO BSC
--- NOTE | 2017-02-23 14:00 | NUR ---
1ST UNIT OF 2 STARTED, LUNG SOUNDS ARE CLEAR BILAT.
--- NOTE | 2017-02-23 19:00 | NUR ---
REPORT RECIEVED, SHIFT ASSESSMENT COMPLETE, PLEASE SEE FLOW SHEETS FOR DETAILS. DENIES PAIN/NEEDS ATT. SITTING UP IN BED EATING UKRAINIAN FOOD WITH . LUNGS WITH CRACKLES IN UPPER LOBES AND DIMINISHED IN LOWER LOBES. S1S2 HEARD, NSR NOTED ON MONITOR. BS ACTIVE X4. PPP. LE +1 PITTING EDEMA NOTED. COUCH FREQUENT AND PRODUCTIVE. 3L NC ON PT. STOEN IN PLACE AND DRAINING VIA GRAVITY. BED IS LOW AND LOCKED, CALL LIGHT IN REACH. VSS, WILL CPOC.
--- NOTE | 2017-02-23 21:00 | NUR ---
FAMILY AT BESIDE. UPDATE GIVEN, ANSWERED ALL QUESTIONS TO BEST OF ABILITY. NO OTHER QUESTIONS ATT. VSS, DENIES NEEDS ATT. PAIN LESS. BED LOW AND LOCKED, CALL LIGHT IN REACH. WILL CPOC.
[2017-02-23 22:31] LABS: HEMATOCRIT 37.3 % (36.0-48.0); HEMOGLOBIN 12.5 g/dL (12-16)
--- NOTE | 2017-02-23 23:01 | NUR ---
REASSESSMENT COMPLETE, PLEASE SEE FLOW SHEETS FOR DETAILS. PT HAD BM, LARGE AND BROWN, MOIST AND SOLID. DENIES PAIN/STATES HER BACK IS "SPASMING" INTERMITENTLY THOUGH WHEN LYING ON HER SIDE DOES NOT BOTHER HER (ON LEFT SIDE NOW). NO CHANGES NOTED FROM PREVIOUS ASSESSMENT. DENIES ANY OTHER NEEDS ATT. BED LOW AND LOCKED, CALL LIGHT IN REACH. VSS, WILL CPOC.
[2017-02-24] VITALS (24 sets, daily range): BP systolic 87–123; BP diastolic 46–97
--- NOTE | 2017-02-24 01:00 | NUR ---
SITTING UP IN BED WATCHING HER PORTABLE DVD PLAYER, DENIES PAIN/NEEDS ATT. VSS, BED LOW/LOCKED. CALL LIGHT IN REACH. WILL CPOC.
--- NOTE | 2017-02-24 02:48 | NUR ---
REASSESSMENT COMPLETE, PLEASE SEE FLOW SHEETS FOR DETAILS. DENIES PAIN/NEEDS ATT. SLEEPING SITTING UP IN HER BED, LAYING OVER HER BEDSIDE TABLE. ASKED IF THAT WAS HURTING HER, AND SHE STATED NO. NO CHANGES FROM PREVIOUS ASSESSMENT. VSS, BED LOW/LOCKED, CALL LIGHT IN REACH. WILL CPOC.
--- NOTE | 2017-02-24 05:00 | NUR ---
0500: Pt sitting up in bed with eyes open watching TV. Pt requested cup of coffee. Pt remains SR 70's on CM with SBP 90. No change in IVF/UOP.
[2017-02-24 05:58] LABS: BASOPHILS 0.1 % (0-2); EOSINOPHILS 1.1 % (0-7); HEMATOCRIT 35.7 % (36.0-48.0); IMMATURE GRANULOCYTES 0.7 % (0-5); LYMPHOCYTES 25.2 % (15-50); MCH 27.9 pg (26.0-34.0); MCHC 33.6 g/dL (31.0-37.0); MEAN PLATELET VOLUME 10.2 fL (7.4-10.4); MONOCYTES 6.1 % (2-11); NEUTROPHILS 66.8 % (40-80); PLATELET COUNT 209 10x3/uL (130-400); WBC 14.7 10x3/uL (4.8-10.8)
--- NOTE | 2017-02-24 06:00 | NUR ---
0600: Pt c/o chest pain at this time. Pt states she has had this pain previsouly. Pt requested pain Rx. Admin as per EMAR. Pt weight noted and documented. Family here at bedside and update provided.
[2017-02-24 06:12] LABS: ANION GAP 9.4 mmol/L (8-16); BILIRUBIN - TOTAL 1.3 mg/dL (0.2-1.3); CARBON DIOXIDE 31.8 mmol/L (21.0-32.0); CREATININE - SERUM 0.9 mg/dL (0.6-1.3); MAGNESIUM - SERUM 1.9 mg/dL (1.8-2.4); PHOSPHOROUS 3.1 mg/dL (2.5-4.9); POTASSIUM - SERUM 4.2 mmol/L (3.5-5.1); PROTEIN - SERUM 5.8 g/dL (6.4-8.2)
--- NOTE | 2017-02-24 19:00 | NUR ---
SHIFT ASSESSMENT COMPLETE, SEE FLOWSHEET. PATIENT SITTING UP WATCHING TV, DENIES NEED AT THIS TIME. VSS. WILL MONITOR.
--- NOTE | 2017-02-24 21:00 | NUR ---
NIGHT MEDS GIVEN. DAUGHTER AT BEDSIDE.
[2017-02-25] VITALS (25 sets, daily range): BP systolic 91–127; BP diastolic 55–86
--- NOTE | 2017-02-25 00:30 | NUR ---
PATIENT REQUESTS NORCO FOR PAIN IN HER BACK. PAIN MED PROVIDED.
--- NOTE | 2017-02-25 03:00 | NUR ---
REASSESSMENT COMPLETE, NO ACUTE CHANGES. SEE FLOWSHEET FOR COMPLETE DETAILS. VSS, DENIES NEEDS. CL IN REACH.
[2017-02-25 04:55] LABS: BASOPHILS 0 % (0-2); HEMATOCRIT 34.8 % (36.0-48.0); HEMOGLOBIN 11.3 g/dL (12-16); IMMATURE GRANULOCYTES 0.9 % (0-5); LYMPHOCYTES 21.7 % (15-50); MCH 27.2 pg (26.0-34.0); MCHC 32.5 g/dL (31.0-37.0); MCV 83.7 fL (80.0-100.0); MEAN PLATELET VOLUME 10.5 fL (7.4-10.4); MONOCYTES 5.2 % (2-11); NEUTROPHILS 71.2 % (40-80); PLATELET COUNT 205 10x3/uL (130-400); RBC 4.16 10x6/uL (4.00-5.40); RDW 16.4 % (11.5-14.5); WBC 11.8 10x3/uL (4.8-10.8)
[2017-02-25 05:00] LABS: PROTIME 13.1 SECONDS (11.6-15.0)
--- NOTE | 2017-02-25 05:00 | NUR ---
RESTING WITH EYES CLOSED AT THIS TIME. VSS. RR EVEN AND NONLABORED.
[2017-02-25 05:16] LABS: ALBUMIN 1.9 g/dL (3.4-5.0); ANION GAP 9.2 mmol/L (8-16); BILIRUBIN - TOTAL 0.91 mg/dL (0.2-1.3); C-REACTIVE PROTEIN 0.7 mg/dL (0.0-0.9); CALCIUM 7.9 mg/dL (8.5-10.1); CARBON DIOXIDE 32.7 mmol/L (21.0-32.0); CREATININE - SERUM 0.9 mg/dL (0.6-1.3); POTASSIUM - SERUM 3.9 mmol/L (3.5-5.1); PROTEIN - SERUM 5.7 g/dL (6.4-8.2)
--- NOTE | 2017-02-25 09:11 | NUR ---
LEFT ARM IV DRESSING NOT IN GOOD REPAIR, DRESSING CHANGED PER POLICY.
--- NOTE | 2017-02-25 13:50 | NUR ---
PLACED TO BED VIA ONE RN. BALANCE AND LINE MANIPULATION ONLY.
--- NOTE | 2017-02-25 19:05 | NUR ---
Received patient sitting up in bed, assessment completed per flowsheet. Patient AO x4, calm and cooperative. Eyes PERRLA @ 4mm with brisk response, sclera is clear and white. S1/S2 noted NSR on telemtry with HR 82, rhythmic and regular. Breathing is slightly shallow and unlabored on 2L via NC with O2 sat 99%, lung sounds clear bilateral upper and mid with diminished lower. Abdomen is flat and soft, non-tender to palpation with bowel sounds active x4. Andersen secured in place with concentrated yellow urine noted in collection. Full ROM all extremities, slight weakness and swelling noted bilateral lower. All pulses palpable with cap refill < 3 sec, skin warm/dry to touch. Midline cath noted L AC, patent with Dobutamine @ 2.5mcg/kg/min infusing. Patient denies pain or other needs at this time, all VSS and will continue to monitor.
--- NOTE | 2017-02-25 21:00 | NUR ---
Patient family at [facility], all questions answered to satisfaction. All HS meds given without difficulty, denies pain or other needs at this time. All VSS and will continue to monitor.
--- NOTE | 2017-02-25 23:05 | NUR ---
Reassessment completed per flowsheet, patient resting in bed with eyes open watching TV. S1/S2 noted NSR on telemetry with HR 93, rhythmic and regular. Breathing is slightly shallow on 2L via NC with O2 sat 98%, lung sounds clear bilateral upper and mid with diminished lower. All pulses palpable with cap refill < 3 sec, skin warm/dry to touch with slight weakness and trace swelling bilateral lower. Patient denies pain or other needs at this time, all VSS and will continue to monitor.
[2017-02-26] VITALS (24 sets, daily range): BP systolic 89–125; BP diastolic 58–84
--- NOTE | 2017-02-26 03:05 | NUR ---
Reassessment completed per flowsheet, patient resting in bed with eyes open. Patient AO x4, calm and cooperative. S1/S2 noted NSR on telemetry with HR 84, rhythmic and regular. Breathing is slightly shallow and unlabored on 2L via NC with O2 sat 98%, lung sounds clear bilateral upper and mid with diminished lower. All pulses palpable with cap refill < 3 sec, skin warm/dry to touch. Patient denies pain or other needs at this time, all VSS and will continue to monitor.
[2017-02-26 04:53] LABS: BASOPHILS 0.1 % (0-2); EOSINOPHILS 0.8 % (0-7); HEMATOCRIT 34.1 % (36.0-48.0); IMMATURE GRANULOCYTES 0.8 % (0-5); LYMPHOCYTES 20.1 % (15-50); MCH 27.3 pg (26.0-34.0); MCHC 32.3 g/dL (31.0-37.0); MCV 84.6 fL (80.0-100.0); MONOCYTES 6.7 % (2-11); NEUTROPHILS 71.5 % (40-80); PLATELET COUNT 208 10x3/uL (130-400); RBC 4.03 10x6/uL (4.00-5.40); RDW 17.1 % (11.5-14.5)
--- NOTE | 2017-02-26 05:00 | NUR ---
AM labs collected without difficulty, patient denies pain or other needs at this time.
[2017-02-26 05:12] LABS: ALBUMIN 1.9 g/dL (3.4-5.0); ALKALINE PHOSPHATASE 94 U/L (46-116); BILIRUBIN - TOTAL 0.85 mg/dL (0.2-1.3); C-REACTIVE PROTEIN 0.6 mg/dL (0.0-0.9); CALCIUM 7.5 mg/dL (8.5-10.1); CHLORIDE - SERUM 99 mmol/L (98-107); CREATININE - SERUM 0.8 mg/dL (0.6-1.3); PROTEIN - SERUM 5.6 g/dL (6.4-8.2); SODIUM 136 mmol/L (136-145); UREA NITROGEN 26 mg/dL (7-18); eGFR NON AFRICAN AMERICAN 77 mL/min (90-120)
[2017-02-26 05:13] LABS: ALT (SGPT) 306 U/L (10-68); CALC OSMOLALITY 274 mosm/kg (275-300); GLUCOSE 67 mg/dL (74-106)
--- NOTE | 2017-02-26 10:21 | NUR ---
NUTRITION F/U PT AMBULATING IN ICU. TOLERATING ADA MECH SOFT DIET, HONEY THICK LIQUIDS. PT REPORTS POOR PO INTAKE AT BREAKFAST. MAY BENEFIT FROM DIET CHANGE TO REG WITH THIN LIQUIDS. SPOKE WITH NURSING RE:SAME. RD FOLLOWING
--- NOTE | 2017-02-26 12:08 | NUR ---
PT AMB WITH PT THIS AM W/O PROBLEMS, DR PABLO HERE, REC'D ORDER TO CONTINUE TO WEAN DOBUTAMINE. DECREASED RATE TO 2.4MCG/KG/MIN. PT SITTING IN CHAIR EATING BREAKFAST.
--- NOTE | 2017-02-26 14:58 | NUR ---
ASSISTED BACK TO BED, BATH AND LINENS CHANGED, STONE CATH CARE COMPLETE.
--- NOTE | 2017-02-26 15:58 | NUR ---
PT CO SOB AT REST. CALLED AND REPORTED TO DR PINEDA. DR PINEDA AT BS. VSS, SPO2 97% ON 2LNC. PT IS IN NO DISTRESS.
--- NOTE | 2017-02-26 20:35 | NUR ---
Received patient sitting up in bed with eyes open, assessment completed per flowsheet. Patient AO x4, calm and cooperative. Eyes PERRLA @ 4mm with brisk response, sclera is white. S1/S2 noted NSR on telemetry with HR 87, rhythmic and regular. Breathing is slightly shallow and unlabored on 2L via NC with O2 sat 99%, lung sounds clear bilateral upper and mid with diminished lower. Abdomen is soft and flat with bowel sounds active x4, non-tender. Fioley secured in place, concentrated yellow urine with small clots noted. Full ROM all extremities with trace swelling noted bilateral lower, cap refill < 3 sec with skin warm/dry to touch. L AC midline with Dobutamine @ 2.5mcg/kg/min infusing, dressing CDI. Patient denies pain or other needs at this time, all VSS and will continue to monitor.
--- NOTE | 2017-02-26 21:00 | NUR ---
All HS meds given without difficulty, patient family at bedside. All questions answered to satisfaction, no further needs at this time.
--- NOTE | 2017-02-26 23:10 | NUR ---
Reassessment completed per flowsheet, patient resting in bed with eyes open watching TV. Patient AO x4, calm and cooperative. S1/S2 noted nSR on telemetry with HR 90, rhythmic and regular. Breathing is slightly shallow and unlabored on 2L via NC with O2 sat 100%, lung sound clear bilateral upper and mid with diminished lower. Full ROM all extremities with all pulses palpable, skin war/dry to touch with cap refill < 3 sec. Denies pain or other needs at this time, all VSS and will continue to monitor.
[2017-02-27] VITALS (23 sets, daily range): BP systolic 99–129; BP diastolic 53–88
--- NOTE | 2017-02-27 01:00 | NUR ---
Patient resting in bed with eyes closed, breathing is slightly shallow and unlabored on 2L via NC with O2 sat 99%. No further needs at this time, all VSS and will continue to monitor.
--- NOTE | 2017-02-27 03:05 | NUR ---
Reassessment completed per flowsheet, patient resting in bed with eyes closed. Patient AO x4, calm and cooperative. S1/S2 noted Sinus Tach on telemetry with HR 101, rhythmic and regular. Breathing is slightly shallow and unlabored on 2L via NC with O2 sat 99%, lung sounds clear bilateral upper and mid with diminished lower. Full ROM all extremities with all pulses palpable, cap refill < 3 sec with skin warm/dry to touch. Patient denies pain or other needs at this time, all VSS and will continue to monitor.
[2017-02-27 03:58] LABS: BASOPHILS 0.1 % (0-2); EOSINOPHILS 0.9 % (0-7); HEMOGLOBIN 10.8 g/dL (12-16); IMMATURE GRANULOCYTES 0.9 % (0-5); LYMPHOCYTES 25.6 % (15-50); MCH 27.8 pg (26.0-34.0); MCHC 32.7 g/dL (31.0-37.0); MCV 85.1 fL (80.0-100.0); MONOCYTES 6.9 % (2-11); NEUTROPHILS 65.6 % (40-80); PLATELET COUNT 193 10x3/uL (130-400); RBC 3.88 10x6/uL (4.00-5.40); RDW 17.9 % (11.5-14.5); WBC 11.7 10x3/uL (4.8-10.8)
[2017-02-27 04:13] LABS: CALC OSMOLALITY 272 mosm/kg (275-300); CALCIUM 7.7 mg/dL (8.5-10.1); CARBON DIOXIDE 31.4 mmol/L (21.0-32.0); CHLORIDE - SERUM 98 mmol/L (98-107); CREATININE - SERUM 0.8 mg/dL (0.6-1.3); MAGNESIUM - SERUM 1.8 mg/dL (1.8-2.4); POTASSIUM - SERUM 3.8 mmol/L (3.5-5.1); SODIUM 133 mmol/L (136-145); UREA NITROGEN 28 mg/dL (7-18); eGFR NON AFRICAN AMERICAN 77 mL/min (90-120)
[2017-02-27 04:16] LABS: GLUCOSE 120 mg/dL (74-106)
--- NOTE | 2017-02-27 05:00 | NUR ---
AM labs collected without difficulty, patient denies pain or other needs at this time. All VSS and will continue to monitor.
--- NOTE | 2017-02-27 08:38 | NUR ---
PT UP TO BSC. HAD MOD AMT DARK FORMED STOOL. ASSISTED TO CHAIR. ATE 80% OF BREAKFAST AND TOOK MEDS W/O PROBLEMS.
--- NOTE | 2017-02-27 19:30 | NUR ---
SHIFT ASSESSMENT COMPLETE, PT IS ALERT AND ORIENTED, ON 2L NC WITH 98% O2 SAT. LUNGS CLEAR IN B/L UPPER LOBES, DIMINISHED IN B/L LOWER LOBES, S1S2, CM-NSR, PATENT LEFT A/C MIDLINE...SEE IV FLOW SHEET...ABDOMEN IS SOFT AND FLAT WITH ACTIVE BS, PATENT F/C WITH CLOUDY UOP, NO EDEMA NOTED, ALL PPP, VSS, CALL LIGHT IN REACH
--- NOTE | 2017-02-27 21:10 | NUR ---
FAMILY AT BEDSIDE, UPDATE GIVEN
--- NOTE | 2017-02-27 22:05 | NUR ---
PT TRANSFERED TO MED/SURG 2223 BY WHEELCHAIR.
--- NOTE | 2017-02-27 23:09 | NUR ---
REASSESSMENT COMPLETE, NO CHANGES NOTED, PT RESTING AT THIS TIME, VSS, CALL LIGHT IN REACH
[2017-02-28] VITALS (24 sets, daily range): BP systolic 91–136; BP diastolic 52–95
--- NOTE | 2017-02-28 01:04 | NUR ---
PT AWAKE AT THIS TIME, DENIES ANY WANTS OR NEEDS, WILL CON'T TO MONITOR
--- NOTE | 2017-02-28 03:06 | NUR ---
RAD IN ROOM FOR DAILY CXR
[2017-02-28 05:04] LABS: BASOPHILS 0.2 % (0-2); EOSINOPHILS 0.6 % (0-7); HEMATOCRIT 32.6 % (36.0-48.0); HEMOGLOBIN 10.4 g/dL (12-16); IMMATURE GRANULOCYTES 0.8 % (0-5); LYMPHOCYTES 22.7 % (15-50); MCH 27.3 pg (26.0-34.0); MCHC 31.9 g/dL (31.0-37.0); MCV 85.6 fL (80.0-100.0); MEAN PLATELET VOLUME 10.7 fL (7.4-10.4); MONOCYTES 6.2 % (2-11); NEUTROPHILS 69.5 % (40-80); PLATELET COUNT 187 10x3/uL (130-400); RBC 3.81 10x6/uL (4.00-5.40); RDW 18.5 % (11.5-14.5); WBC 12.7 10x3/uL (4.8-10.8)
[2017-02-28 05:27] LABS: CALC OSMOLALITY 280 mosm/kg (275-300); CARBON DIOXIDE 29.6 mmol/L (21.0-32.0); CHLORIDE - SERUM 101 mmol/L (98-107); CREATININE - SERUM 0.8 mg/dL (0.6-1.3); GLUCOSE 137 mg/dL (74-106); MAGNESIUM - SERUM 1.9 mg/dL (1.8-2.4); SODIUM 136 mmol/L (136-145); UREA NITROGEN 31 mg/dL (7-18); eGFR NON AFRICAN AMERICAN 77 mL/min (90-120)
[2017-02-28 05:36] LABS: POTASSIUM - SERUM 4.5 mmol/L (3.5-5.1)
--- NOTE | 2017-02-28 05:41 | NUR ---
PT C/O OF SOB, REQUESTED LASIX, LASIX GIVEN
--- NOTE | 2017-02-28 08:00 | NUR ---
SHIFT ASSESSMENT VIA FLOWSHEET, SEE FOR DETAILS.
--- NOTE | 2017-02-28 08:09 | NUR ---
SPOKE WITH DR BUSTOS VIA PHONE, STATES HE WILL SEE PT UPON ARRIVAL TO HOSPITAL.
--- NOTE | 2017-02-28 08:25 | NUR ---
BREAKFAST TRAY PROVIDED, PT ASSISTED TO POSITION OF COMFORT. MINIMAL ASSISTANCE REQUIRED. PT STATES SHE FEELS "SO WEAK" AND RESPIRATORY EFFORT IS INCREASESED. VSS AT THIS TIME. WILL CONTINUE TO MONITOR.
--- NOTE | 2017-02-28 09:54 | NUR ---
DR BUSTOS HERE TO SEE PT.
--- NOTE | 2017-02-28 09:57 | NUR ---
NUTRITION F/U CHART REVIEWED. ADA [facility] SOFT DIET. 75% AVERAGE INTAKE RECENT MEALS. WILL CONTINUE TO PROVIDE DIET, MONITOR PO INTAKE. RD FOLLOWING
--- NOTE | 2017-02-28 10:41 | NUR ---
OOB OF BED WITH PHYSICAL THERAPY ASSIST.
--- NOTE | 2017-02-28 11:30 | NUR ---
REASSESSMENT VIA FLOWSHEET, SEE FOR DETAILS.
--- NOTE | 2017-02-28 12:19 | NUR ---
PT BACK TO BED WITH PHYSICAL THERAPY ASSIST.
--- NOTE | 2017-02-28 15:30 | NUR ---
REASSESSMENT VIA FLOWSHEET, SEE FOR DETAILS.
--- NOTE | 2017-02-28 18:00 | NUR ---
FAMILY AT BEDSIDE, UPDATE PROVIDED. PT VSS.
--- NOTE | 2017-02-28 19:42 | NUR ---
REPORT RECIEVED. ASSESSMENT COMPLETED. SEE FLOW SHEET FOR FURTHER DEATILS. PT POSITIONED FOR COMFORT, WILL CONTINUE TO MONITOR.
--- NOTE | 2017-02-28 21:09 | NUR ---
PT DAUGHTER AT BED SIDE VISITING. PT UP COMMUNICATING WITH VISITOR. WILL CONTINUE TO MONITOR PT.
--- NOTE | 2017-02-28 23:11 | NUR ---
REASSESSMENT COMPLETED. WOKE UP FOR ASSESSMENT PT STATES SHE GOING BACK TO SLEEP. WILL CONTINUE TO MONITOR PT.
[2017-03-01] VITALS (17 sets, daily range): BP systolic 95–122; BP diastolic 62–88
--- NOTE | 2017-03-01 01:00 | NUR ---
PT SLEEPING WITH EYES CLOSED. SHOWS NO SIGNS OF DISTRESS. WILL CONTIONUE TO MONITOR PT.
--- NOTE | 2017-03-01 03:00 | NUR ---
REASSESSMENT COMPLETED. PT STATES THAT SHE FEELS LIKE HER LUNGS ARE FILLING. LUNGS ASC CLR IN THE UPPER LOBES DIMINISHED IN THE LOWER LOBES. WILL CONTINUE TO MONITOR.
[2017-03-01 04:23] LABS: BASOPHILS 0.2 % (0-2); EOSINOPHILS 0.5 % (0-7); HEMATOCRIT 34.1 % (36.0-48.0); LYMPHOCYTES 17.6 % (15-50); MCH 27.8 pg (26.0-34.0); MCHC 32.3 g/dL (31.0-37.0); MCV 86.1 fL (80.0-100.0); MEAN PLATELET VOLUME 10.6 fL (7.4-10.4); MONOCYTES 8.5 % (2-11); NEUTROPHILS 72.2 % (40-80); PLATELET COUNT 184 10x3/uL (130-400); RBC 3.96 10x6/uL (4.00-5.40); RDW 18.6 % (11.5-14.5)
[2017-03-01 04:50] LABS: ALBUMIN 1.9 g/dL (3.4-5.0); ALKALINE PHOSPHATASE 111 U/L (46-116); ALT (SGPT) 327 U/L (10-68); BILIRUBIN - TOTAL 0.82 mg/dL (0.2-1.3); CALC OSMOLALITY 275 mosm/kg (275-300); CALCIUM 7.7 mg/dL (8.5-10.1); CARBON DIOXIDE 27.4 mmol/L (21.0-32.0); CHLORIDE - SERUM 99 mmol/L (98-107); CREATININE - SERUM 0.8 mg/dL (0.6-1.3); GLUCOSE 162 mg/dL (74-106); MAGNESIUM - SERUM 1.9 mg/dL (1.8-2.4); POTASSIUM - SERUM 4.7 mmol/L (3.5-5.1); PROTEIN - SERUM 5.5 g/dL (6.4-8.2); SODIUM 134 mmol/L (136-145); UREA NITROGEN 24 mg/dL (7-18); eGFR NON AFRICAN AMERICAN 77 mL/min (90-120)
--- NOTE | 2017-03-01 05:00 | NUR ---
PT RESTING COMFORTABLY IN BED WILL CONTINUE TO MONITOR.
--- NOTE | 2017-03-01 07:00 | NUR ---
REC'D REPORT AND RESUMED CARE, AAO VSS, DENIES PAIN, O2 VIA 2L NC, SAT 92%, LEFT AC MIDLINE IN PLACE, SL, FOLWY TO GRAVITY, CONCENTRATED DARK DRAINAGE TO BAG, ASSESSMENT COMPLETE PER FLOWSHEET, SELF REPOSITIONS, CALL LIGHT IN REACH, NO NEEDS AT THIS TIME
--- NOTE | 2017-03-01 07:40 | NUR ---
BREAKFAST TRAY TO BEDSIDE, INDEPENDENT WITH SET UP AND EATING
--- NOTE | 2017-03-01 09:00 | NUR ---
FAMILY AT BEDSIDE, STATUS UPDATED, VOICES NO NEEDS AT THIS TIME
--- NOTE | 2017-03-01 11:00 | NUR ---
RESTING WITH NO SIGNS OF DISTRESS, VSS, DENIES PAIN, SELF REPOSITIONED, ASSESSMENT COMPLETE PER FLOWSHEET
--- NOTE | 2017-03-01 11:35 | NUR ---
FSBS 279, 16 UNITS REG INSULIN GIVEN PER S/S ORDER
--- NOTE | 2017-03-01 11:50 | NUR ---
LUNCH TRAY TO BEDSIDE, INDEPENDENT WITH SET UP AND EATING
--- NOTE | 2017-03-01 13:00 | NUR ---
OOB TO BSC, TOLERATED TRANSFER WITH OUT DIFFICULTY, 1315 SMALL FORMED STOOL TO ROJAS, SKINCARE COMPLETED, TRANSFERRED TO CHAIR, FAMILY AND FRIENDS TO BEDSIDE
--- NOTE | 2017-03-01 13:40 | NUR ---
DR MCKENZIE HERE FOR EVAL, NEW ORDER GIVEN TO TRANSFER OUT OF ICU
--- NOTE | 2017-03-01 15:00 | NUR ---
CALLED TO ROOM, OUT OF CHAIR TO BEDSIDE COMMODE, TOLERATED TRANSFER WITHOUT DIFFICULTY, LARGE FORMED STOOL TO ROJAS, SKINCARE GIVEN BACK TO CHAIR, NO OTHER NEEDS AT THIS TIME
--- NOTE | 2017-03-01 15:15 | NUR ---
REPORT CALLED TO PRIMARY NURSE LETTY ON MED 2, 1000 CC URINE EMPTIED FROM STONE BAG, TRANSFERRED VIA WHEELCHAIR TO 213, AAO, SPOUSE AT BEDSIDE ON ARRIVAL, REPOSITIONED IN BED, PRIMARY NURSE AND TURBINE ROOM ATTENDANT AT [facility], CALL LIGHT IN REACH, ACCLAMATED TO ROOM, NO OTHER NEEDS AT THIS TIME
--- NOTE | 2017-03-01 15:42 | NUR ---
PT RECIVED TO ROOM FROM ICU. RR EVEN AND UNLABORED, PT ON 2L NC. FAMILY AT BEDSIDE. PT ABLE TO AMBULATE FROM WHEELCHAIR TO BED X1 ASSIST. PLACED NAME ON WHITE BOARD, VSS, WILL CTM.
--- NOTE | 2017-03-01 17:53 | NUR ---
PT RESTING QUIETLY, RR EVEN AND UNLABORED. PT DENIES NEEDS AT THIS TIME. WILL GIVE REPORT ON PT CONDITION FOR THE DAY.
--- NOTE | 2017-03-01 19:22 | NUR ---
PT RESTING IN BED.PT C/O PAIN IN CHEST. 01/04. TOLD PT I WILL BRING PAIN MED WHEN BRING NIGHT MEDS. PT NEEDS TELEMETRY WILL PUT ON JOSÉ MIGUEL. PT IS ON 1.5L OF O2 WITH HUMIDITY., PT DENIES ANY NEEDS AT THIS TIME. WILL CPOC
--- NOTE | 2017-03-01 20:49 | NUR ---
PT FINISHED BREATHING TREATMENT. PT SITTING UP IN BED. STATES PAIN IS 8/10. TELEMETRY PLCED. PT DENIES ANY NEEDS. WILL CPOC
[2017-03-02] VITALS (7 sets, daily range): BP systolic 98–135; BP diastolic 58–86
--- NOTE | 2017-03-02 00:55 | NUR ---
PT C/O CHEST PAIN. EKG TAKEN FROM TELEMETRY. PT HR HAS INCREASED 20 BPM SINCE 2039. PT STATES SHE IS CRACKLES IN LUNGS AND WANTING LASIX. GIVING PT A NITRO. PT HAS NO S/S OF DISTRESS. WILL CPOC
--- NOTE | 2017-03-02 01:07 | NUR ---
PT STILL MOANING AND C/O CHEST PAIN. STATES THAT PAIN IS NOT SEVERE. RUNNING [address] ON MONITOR. WAS [address] PRIOR TO 1ST DOSE OF NITRO. PT STILL HAS CHEST PAIN. WANTS 2ND DOSE OF NITRO. PT IS NOT SWEATY. WARM AND DRY TO TOUCH. WHEN JUDGING ON HOW SHE LOOKS COMPARED TO EARLIER SHE LOOKS TO BE IN PAIN, DISCOMFORT. 2ND DOSE OF NITRO GIVEN. PT HAS NO S/S OF DISTRESS. WILL CONTINUE TO MONITOR CHEST PAIN
--- NOTE | 2017-03-02 01:26 | NUR ---
THIRD DOSE OF NITRO GIVEN. PT STILL MOANING IN PAIN. STATES IT GOT BETTER BUT IS ALREADY STARTING TO HURT AGAIN. RUNNING [address] ON MONITOR. PT SEEMS MORE CALM. BREATHING SLOWER AND NOT MOANING ANY YELLING OUT IN PAIN BAD. WILL GIVE THIRD DOSE AND IF IT DOES NOT HELP WILL JANENE BUSTOS. CHARGE NURSE REJI AWARE OF SITUATION. PT IS NOT ABLE TO HAVE PRN NORCO UNTIL [phone]. PT BED LOW CALL LIGHT IN REACH. NO S/S OF DISTRESS. WILL CPOC
--- NOTE | 2017-03-02 02:19 | NUR ---
PT STILL C/O CHEST PAIN. PT HAS SEVERE ANXIETY. ASKED ME TO STAY IN ROOM AND THAN GOT TEARS WHEN I SAID I CAN NOT STAY. PAGED DR BUSTOS TO UPDATE HIM ON PT CHEST PAIN. ANXIETY AND PT LUNGS. \ PT NOT IN DISTRESS. ON MONITOR PT [address] WILL CPOC
--- NOTE | 2017-03-02 06:49 | NUR ---
PT RESTING IN BED. TURNED ON RIGHT SIDE FACING THE BATHROOM. BREATHING IS IRREGULAR. PT HAS NO S/S OF DISTRESS. WILL CPOC
[2017-03-02 06:58] LABS: BASOPHILS 0.3 % (0-2); EOSINOPHILS 0.6 % (0-7); HEMATOCRIT 34.7 % (36.0-48.0); HEMOGLOBIN 10.9 g/dL (12-16); IMMATURE GRANULOCYTES 0.8 % (0-5); LYMPHOCYTES 26.4 % (15-50); MCHC 31.4 g/dL (31.0-37.0); MCV 86.1 fL (80.0-100.0); MEAN PLATELET VOLUME 10.1 fL (7.4-10.4); MONOCYTES 8.6 % (2-11); NEUTROPHILS 63.3 % (40-80); PLATELET COUNT 163 10x3/uL (130-400); RBC 4.03 10x6/uL (4.00-5.40); RDW 18.8 % (11.5-14.5); WBC 15.6 10x3/uL (4.8-10.8)
[2017-03-02 07:13] LABS: ANION GAP 10.5 mmol/L (8-16); BILIRUBIN - TOTAL 0.71 mg/dL (0.2-1.3); CALCIUM 8.2 mg/dL (8.5-10.1); CARBON DIOXIDE 28.8 mmol/L (21.0-32.0); CREATININE - SERUM 0.9 mg/dL (0.6-1.3); MAGNESIUM - SERUM 1.8 mg/dL (1.8-2.4); POTASSIUM - SERUM 4.3 mmol/L (3.5-5.1); PROTEIN - SERUM 5.9 g/dL (6.4-8.2)
--- NOTE | 2017-03-02 07:20 | NUR ---
REPORT RECIVED. RR EVEN AND UNLABORED. PT REQUESTS XANAX FOR ANXIETY THIS MORNING. WILL GIVE WITH MORNING MEDS. PT DENIES FURTHER NEEDS, WILL CTM.
--- NOTE | 2017-03-02 11:25 | NUR ---
PT IS COMPLAINING OF DIFFICULTY BREATHING. ADVENTITIOUS LUNG SOUNDS CAN BE HEARD WITHOUT AUSCULTATION. PAGED BOB FRASER ABOUT PT CONDTION, O2 SAT 85, INCREASED PTS O2 FROM 1.5 L TO 4L AND O2 SAT INCREASED TO 90.
--- NOTE | 2017-03-02 11:33 | NUR ---
SPOKE TO BOB FRASER ABOUT PT CONDTION. GAVE ORDER FOR BREATING TX NOW AND REPORTED THAT SHE WILL COME AND ASSESS HER SHORTLY. WILL CTM.
--- NOTE | 2017-03-02 11:45 | NUR ---
SPOKE TO RESPIRATORY ABOUT ONE TIME ORDER FOR NORMA RÍOS.
--- NOTE | 2017-03-02 13:30 | NUR ---
PT RESTING QUIETLY, FAMILY AT BEDSIDE. PT DENIES NEEDS AT THIS TIME. RR EVEN AND NOW UNLABORED. WILL CTM.
--- NOTE | 2017-03-02 15:30 | NUR ---
PT REPORTED TO HUMAN RESOURCES BENEFITS MANAGER THAT SHE IS HAVING DIFFICUTLY BREATHING. O2 SAT CURRENTLY 94, RR LABORED. GAVE XANAX PRN PER PT REQUEST. WILL CTM.
--- NOTE | 2017-03-02 16:08 | NUR ---
PT STILL COMPLAINING OF SOB AND DYSPNEA. PT IS DIAPHORETIC. O2 SAT IS 90 ON 4L. SPOKE TO BOB FRASER, DID NOT GIVE ANY MORE ORDERS FOR PT CONDTION, WILL CTM.
--- NOTE | 2017-03-02 16:29 | NUR ---
SPOKE TO DR. PABLO ABOUT PT CONDITION. GAVE TELEPHONE ORDER FOR 60MG IV LASIX. WILL GIVE AND CTM PT CONDITION.
--- NOTE | 2017-03-02 17:00 | NUR ---
PT PLACED ON NON REBREATHER PER RT. PTS O2 SAT IS NOW 100. WILL PLACE PT ON OXIMIZER PER RT. WILL CTM.
--- NOTE | 2017-03-02 17:00 | NUR ---
Patient Name: IDALIA DALAL Encounter No: [id number] : 1955 Primary Insurance: MEDICAID [facility] [place] Date: 01-31-2017 Planned Disposition: Home with Home Health External Planned Provider: [facility] DCP follow-up note: CM MET WITH PT IN ROOM TO DISCUSS DISCHARGE NEEDS AND PLANNING. CM DISCUSSED AVAILABILITY OF HOME HEALTH, REHAB SERVICES AND MEDICAL EQUIPMENT. PT REPORTS SHE WOULD LIKE HOME HEALTH WITH [facility] FOR DISCHARGE HOME WITH THERAPY SERVICES, CHOICE SIGNED. FAMILY TO TRANSPORT HOME AT DISCHARGE. CM TO FOLLOW AND ASSIST NEEDED. CM TO ARRANGE HOME HEALTH WITH [facility] WITH PHYSICIAN AGREEMENT AND ORDERS. iRdge Lomeli, CASE MANAGEMENT
--- NOTE | 2017-03-02 17:39 | NUR ---
PT PLACED ON OXIMIZER 15L. CURRENTLY O2 SAT IS 96. PT IS STILL HAVING LABORED RESPIRATIONS. HR IS 119. WILL CTM.
--- NOTE | 2017-03-02 18:15 | NUR ---
PT SITTING ON EDGE OF BED. ON 15L OXIMIZER. PTS RESPIRATIONS ARE STILL VERY LABORED. WILL GIVE REPORT ON PT CONDITION FOR THE DAY.
--- NOTE | 2017-03-02 19:29 | NUR ---
RESPRITORY INFORMED ME THAT PT REQUEST A BYPAP, AND PT COULD USE A BYPAP. WILL PAGE BEV. [facility] NOTIFIED
--- NOTE | 2017-03-02 19:40 | NUR ---
BEV CALLED BACK. WHEN ASKING FOR BIPAP ORDER HE SAID TO MOVE HER TO THE ICU. I STATED "YOU WANT ME TO MOVE HER TO THE ICU" HE STATED "THATS WHAT I SAID" I SAID "YES SIR, JUST CLARIFYING. I WILL MOVE HER TO ICU AND ORDER A BIPAP" TOLD ANNAMARIE FREED. THAT BEV WANTS A ROOM IN ICU
--- NOTE | 2017-03-02 19:47 | NUR ---
PAPER MACHINE BACKTENDER CALLED SAID ROOM 1124. WILL CALL REPORT
--- NOTE | 2017-03-02 19:57 | NUR ---
CALLING REPORT TO ICU. PT ON 15L OXY. DIAPHORETIC AND SHAKING. DYSPNEA. STONE YELLOW CLOUDY URINE SEDIMENT PRESENT. FAMILY IN ROOM. WILL PACK PT BELONGINGS AND AND TRANSPORT PT TO ROOM 2306. REPORT GIVEN TO MEERA PAYAN. WILL CPOC
--- NOTE | 2017-03-02 21:13 | NUR ---
PT ARRIVED TO UNIT VIA BED WITH HOSPITAL STAFF. ON 13L OXYMIZER AND SPO2 @ 98%. PUT ON BIPAP UPON ARRIVAL. TEMP 97.1 TEMPORALLY, BP 135/86, HR 104, RR 18. LUNGS CRACKLES IN ALL LOBES AND DIMINISHED IN LOWER LOBES. S1S2 AUSCULTATED. ST NOTED ON MONITOR. PPP. GENERALIZED EDEMA NOTED IN LE. ABDOMEN DISTENDED AND SOFT. PERRLA. DENEIS PAIN/NEEDS ATT. STONE IN PLACE AND DRAINING VIA GRAVITY, VERY CLOUDY YELLOW URINE NOTED. BED LOW AND LOCKED, CALL LIGHT INR EACH. PERSONAL ITEMS (MANY IN A BOX) SET WITHIN REACH. WILL CPOC.
--- NOTE | 2017-03-02 21:25 | NUR ---
PT FSBS IS 256. GAVE PT 16 UNITS OF HUMILIN PER SLIDING SCALE. GAVE PT 30 UNITS OF LANTUS ORDERED. COLACE NOT GIVEN. PT HAS HAD 2 BM'S TODAY AND IS HAVING RESPRITORY COMPLICATIONS. PT DOESNT CARE TO HAVE COLACE. WILL CPOC
--- NOTE | 2017-03-02 21:32 | NUR ---
PT TRANSPORTED TO ICU. TELEMETRY REMOVED AND RETURNED TO ORCHESTRA TEACHER. PT ON 13L OXY. PT NOT IN DISTRESS AT THIS TIME. ATIVIAN IV HELPED WITH ANXIETY AND DYSPNEA. PT AAO. NO NEEDS AT THIS TIME. PT NOW IN ROOM 2054
--- NOTE | 2017-03-02 23:11 | NUR ---
PT EXPEIRIENCING HYPERVENTILATION WHILE IN DEEP SLEEP, NOTED THAT PATIENT ALSO BENT SIDEWAYS AND FORWARD IN BED. ALTERED POSITION TO BACK AND ORDERED ABG PER PROTOCOL, SOLUTION WAS TO KEEP PT ON BACK AND TO DECREASE O2 ON BIPAP. REASSESSMENT COMPLETED ATT, PLEASE SEE FLOW SHEETS FOR DETAILS. VSS ATT. BED IS LOW AND LOCKED, CALL LIGHT IN REACH. WILL CPOC.
[2017-03-03] VITALS (25 sets, daily range): BP systolic 90–126; BP diastolic 61–92
--- NOTE | 2017-03-03 01:00 | NUR ---
RESTING. VSS, BED LOW AND LOCKED, CALL LIGHT IN REACH. WILL CPOC.
--- NOTE | 2017-03-03 02:34 | NUR ---
REASSESSMENT COMPLETE, PLEASE SEE FLOW SHEETS FOR DETAILS. C/O CHEST AND BACK PAIN THOUGH DID NOT GIVE NUMBER FOR PAIN SCALE, WAS SLEEPING BEFORE I WOKE HER FOR ASSESSMENT. ON LEFT SIDE ATT, VSS, BED LOW AND LOCKED, CALL LIGHT IN REACH. WILL CPOC.
--- NOTE | 2017-03-03 05:00 | NUR ---
STONE CARE PROVIDED. DENIES PAIN/NEEDS ATT. ASKED FOR DRINK OF WATER, THIS WAS PROVIDED. SPO2 DROPPED SLIGHTLY WITH OXYMIZER ON DURING REFRESHMENT. PT MORE ALERT. VSS. BED LOW AND LOCKED, CALL LIGHT IN REACH. WILL CPOC.
[2017-03-03 05:24] LABS: BASOPHILS 0.1 % (0-2); EOSINOPHILS 0.1 % (0-7); HEMATOCRIT 34.3 % (36.0-48.0); HEMOGLOBIN 10.9 g/dL (12-16); IMMATURE GRANULOCYTES 0.5 % (0-5); LYMPHOCYTES 5.4 % (15-50); MCH 27.4 pg (26.0-34.0); MCHC 31.8 g/dL (31.0-37.0); MCV 86.2 fL (80.0-100.0); MEAN PLATELET VOLUME 10.6 fL (7.4-10.4); MONOCYTES 1.9 % (2-11); PLATELET COUNT 142 10x3/uL (130-400); RBC 3.98 10x6/uL (4.00-5.40); RDW 18.9 % (11.5-14.5); WBC 15.3 10x3/uL (4.8-10.8)
[2017-03-03 05:52] LABS: ALBUMIN 1.9 g/dL (3.4-5.0); ANION GAP 10.6 mmol/L (8-16); BILIRUBIN - TOTAL 0.63 mg/dL (0.2-1.3); CALCIUM 7.9 mg/dL (8.5-10.1); CARBON DIOXIDE 29.8 mmol/L (21.0-32.0); CREATININE - SERUM 0.9 mg/dL (0.6-1.3); MAGNESIUM - SERUM 1.8 mg/dL (1.8-2.4); POTASSIUM - SERUM 4.4 mmol/L (3.5-5.1); PROTEIN - SERUM 5.9 g/dL (6.4-8.2)
--- NOTE | 2017-03-03 06:22 | NUR ---
PARTIAL LINEN CHANGE PROVIDED. STONE LEAKING, CHECKED FLUID IN BULB AND ONLY 8 ML IN BULB, INFLATED TO FULL 10ML. STONE SEEMS TO NEED TO BE WORKED WITH TO DRAIN. MAY CONSIDER INSERTINE A NEW STONE. WILL TALK TO AM RN.
--- NOTE | 2017-03-03 08:00 | NUR ---
BIPAP REMOVED AND PLACED ON OXIMIZER CANNULA @ 11.5 LPM
--- NOTE | 2017-03-03 19:00 | NUR ---
REPORT RECIEVED, SHIFT ASSESSMENT COMPLETE, PLEASE SEE FLOW SHEETS FOR DETAILS. SITTING UP IN BED. DENIES PAIN/NEEDS ATT. VSS, BED LOW AND LOCKED, CALL LIGHT IN REACH. WILL CPOC.
--- NOTE | 2017-03-03 20:54 | NUR ---
SITTING UP IN BED READING NEWSPAPER, DENIES PAIN/NEEDS ATT. NO S&S OF ACUTE DISTRESS NOTED. VSS, BED LOW AND LOCKED, CALL LIGHT IN REACH. WILL CPOC.
--- NOTE | 2017-03-03 22:52 | NUR ---
REASSESSMENT COMPLETE, PLEASE SEE FLOW SHEETS FOR DETAILS. RE-EVAL FOR PAIN MEDS PT C/O OF NO CHANGE IN PAIN AND REQUESTED HER XANEX, THIS WAS PROVIDED PER ORDERS. DENIES ANY OTHER NEEDS ATT. VSS, BED LOW AND LOCKED, CALL LIGHT IN REACH. WILL CPOC.
[2017-03-04] VITALS (24 sets, daily range): BP systolic 91–150; BP diastolic 49–118
--- NOTE | 2017-03-04 01:00 | NUR ---
SLEEPING, NO S&S OF DISTRESS. VSS, BED LOW AND LOCKED, CALL LIGHT IN REACH. WILL CPOC.
--- NOTE | 2017-03-04 01:45 | NUR ---
PT WOKE C/O FEELING WET. STONE CAME APPART. THE STONE WAS REMOVED. PERINEAL CARE PROVIDED, NOTING POSSIBLE YEAST IN CRACKS. FULL BED BATH AND LINEN CHANGE PROVIDED. NEW STONE INSERTED USING STERILE TECHNIQUE. UA OBTAINED IMMEDIATELY POST INSERTION. PT STATED SHE FELT "SO MUCH BETTER". TOLERATED WELL, POSITIONED FOR COMFORT. BIPAP ON. VSS, BED LOW AND LOCKED, CALL LIGHT IN REACH. WILL CPOC.
[2017-03-04 02:39] LABS: COLOR YELLOW (YELLOW)
[2017-03-04 02:40] LABS: APPEARANCE HAZY (CLEAR); BILIRUBIN NEGATIVE (NEGATIVE); GLUCOSE NEGATIVE (NEGATIVE); KETONE NEGATIVE (NEGATIVE); NITRITE NEGATIVE (NEGATIVE); PROTEIN TRACE mg/dL (NEGATIVE); SPECIFIC GRAVITY 1.015 (1.005-1.020); UROBILINOGEN NORMAL (NORMAL)
[2017-03-04 02:41] LABS: BACTERIA MODERATE /hpf (NONE SEEN); EPITHELIAL CELLS NSEEN /hpf (0-5); WHITE CELLS - URINE >50 /hpf (0-5)
--- NOTE | 2017-03-04 03:00 | NUR ---
REASSESSMENT COMPLETE, PLEASE SEE FLOW SHEETS FOR DETAILS. C/O PAIN/NAUSEA, GAVE NORCO AND ZOFRAN PER ORDERS. VSS, BED LOW AND LOCKED, CALL LIGHT IN REACH. WILL CPOC.
--- NOTE | 2017-03-04 04:05 | NUR ---
BIPAP PUT BACK ON.
--- NOTE | 2017-03-04 04:05 | NUR ---
0350 PT CALLED ME INTO ROOM, PT PRESENTED WITH CP, DIAPHORESIS AND AUDIBLY WET BREATH SOUNDS, CONFIRMED WITH AUSCULTATION OF LUNGS, VERY LOUD CRACKLES HEARD THROUGHOUT LUNG DAILEY THROUGH BACK. PT COMPLAINED SHE WAS "DROWNING" TOOK OFF BIPAP AND PUT ON OXYMIZER, SHE STARTED BLOWING HER NOSE AND COUGHING, UPON INSPECTION NOTICED BLOOD IN SPUTUM. PT SAYING "IM DYING". RT ON FLOOR, REQUESTED STAT EKG, ORDERED STAT TROPONIN, CK, CKMB, CBC. THEN GAVE ATIVAN FOR ANXIETY AND GAVE HER 60MG LASIX EARLY (0600 ORDERED). 0400 CP CONTINUES, EKG SHOWING ST ELEVATION AND STATING "ACUTE OH", WILL GIVE NOTRO. 0402 GAVE NITRO 0407 CP CONTINUES, WILL GIVE SECOND NITRO. 0408 GAVE SECOND NITRO. 0413 CONTINUES TO HAVE CP, WILL GIVE A THIRD NITRO. 0414 GAVE THIRD NITRO. AWAITING STAT LABS AND WILL PAGE DR PINEDA.
[2017-03-04 04:20] LABS: HEMOGLOBIN 12.1 g/dL (12-16); MCH 27.6 pg (26.0-34.0); MCV 88.8 fL (80.0-100.0); MEAN PLATELET VOLUME 10.9 fL (7.4-10.4); PLATELET COUNT 230 10x3/uL (130-400); RBC 4.39 10x6/uL (4.00-5.40); RDW 19.7 % (11.5-14.5); WBC 29.9 10x3/uL (4.8-10.8)
[2017-03-04 04:25] LABS: ALKALINE PHOSPHATASE 130 U/L (46-116); ALT (SGPT) 222 U/L (10-68); CALC OSMOLALITY 278 mosm/kg (275-300); CALCIUM 8.6 mg/dL (8.5-10.1); CARBON DIOXIDE 25.3 mmol/L (21.0-32.0); CHLORIDE - SERUM 98 mmol/L (98-107); GLUCOSE 208 mg/dL (74-106); PROTEIN - SERUM 7.2 g/dL (6.4-8.2); SODIUM 132 mmol/L (136-145); UREA NITROGEN 35 mg/dL (7-18); eGFR NON AFRICAN AMERICAN 59 mL/min (90-120)
--- NOTE | 2017-03-04 04:40 | NUR ---
PT IS DENYING CP ATT. AWAITING LAB RESULTS TO PAGE DR PINEDA.
[2017-03-04 04:42] LABS: CKMB 3.9 U/L (0.0-3.6); CREATINE KINASE 51 UL (21-215)
[2017-03-04 04:43] LABS: ALBUMIN 2.4 g/dL (3.4-5.0); POTASSIUM - SERUM 5.8 mmol/L (3.5-5.1); TROPONIN-I 0.062 ng/mL (0.000-0.060)
--- NOTE | 2017-03-04 04:48 | NUR ---
DR EDWIN GUPTA.
--- NOTE | 2017-03-04 04:54 | NUR ---
DR PINEDA CALLED BACK, INFORMED OF PT STATUS. ORDERED ANOTHER STAT EKG AND TO CALL BACK WITH EKG RESULTS.
[2017-03-04 05:14] LABS: LYMPHOCYTES 8 % (15-50); MONOCYTES 1 % (2-11); NEUTROPHILS 91 % (40-80); PLATELET ESTIMATE NORMAL
--- NOTE | 2017-03-04 05:15 | NUR ---
SPOKE WITH DR PINEDA, HE IS COMING IN TO ASSESS PATIENT AND EVALUATE FOR POSSIBLE NEED FOR A CARDIAC CATH.
--- NOTE | 2017-03-04 05:15 | NUR ---
Resting quietly. Denies chest pain. RR even and unlabored att, vss. Will cpoc.
--- NOTE | 2017-03-04 05:30 | NUR ---
Called and spoke to pt son Grey, informed of pt status and of cardio MD coming in to review lab results and evaluate patient for possible cardiac cath.
--- NOTE | 2017-03-04 07:15 | NUR ---
AROUSES EASILY TO VERBAL STIMULI. SEE FLOWSHEET FOR COMPLETE ASSESSMENT.
--- NOTE | 2017-03-04 08:00 | NUR ---
O2 CHANGED TO OXIMIZER @ 6 LPM FOR BREAKFAST. NO ACUTE DISTRESS NOTED.
--- NOTE | 2017-03-04 11:00 | NUR ---
REMAINS ON OXIMIZER @ 6 LPM. NO CHANGES IN ASSESSMENT.
--- NOTE | 2017-03-04 13:00 | NUR ---
RESTING WITH EYES CLOSED. NO DISTRESS NOTED.
--- NOTE | 2017-03-04 17:30 | NUR ---
ANXIOUS AND C/O PAIN. EXP WHEEZES AUDIBLE WITHOUT STETHOSCOPE. SCHEDULED LASIX GIVEN, HYDOCODONE GIVEN FOR PAIN AND PLACED ON BIPAP @ 40%.
--- NOTE | 2017-03-04 19:00 | NUR ---
REPORT RECIEVED, SHIFT ASSESSMENT COMPLETE, PLEASE SEE FLOW SHEETS FOR DETAILS. PT DROWSEY, DENIES PAIN/NEEDS ATT. VSS, BED LOW AND LOCKED, CALL LIGHT IN REACH. WILL CPOC.
--- NOTE | 2017-03-04 21:00 | NUR ---
FAMILY AT BEDSIDE. DENIES PAIN/NEEDS ATT. BED LOW AND LOCKED, CALL LIGHT IN REACH. VSS, WILL CPOC.
--- NOTE | 2017-03-04 22:37 | NUR ---
REASSESSMENT COMPLETE, PLEASE SEE FLOW SHEETS FOR DETAILS. PT SITTING UP IN BED AND READING, DENIES PAIN/NEEDS ATT. BED LOW/LOCKED, CALL LIGHT IN REACH. WILL CPOC.
[2017-03-05] VITALS (24 sets, daily range): BP systolic 84–126; BP diastolic 59–96
--- NOTE | 2017-03-05 00:49 | NUR ---
SLEEPING, NO S&S OF ACUTE DISTRESS NOTED. VSS, BED LOW AND LOCKED, CALL LIGHT IN REACH. WILL CPOC.
--- NOTE | 2017-03-05 03:00 | NUR ---
REASSESSMENT COMPLETE, PLEASE SEE FLOW SHEETS FOR DETAILS. HELPED TO REPOSITION FOR COMFORT. C/O PAIN IN LOWER CHEST REGION, LIKE CRAMPING, AND BECOMING ANXIOUS. WILL GIVE NORCO AND XANEX PER ORDERS. VSS ATT, BED LOW AND LOCKED, CALL LIGHT IN REACH. WILL CPOC.
[2017-03-05 04:11] LABS: BASOPHILS 0 % (0-2); EOSINOPHILS 0 % (0-7); HEMATOCRIT 33.6 % (36.0-48.0); IMMATURE GRANULOCYTES 0.4 % (0-5); MCH 28.8 pg (26.0-34.0); MCHC 32.7 g/dL (31.0-37.0); MEAN PLATELET VOLUME 10.8 fL (7.4-10.4); MONOCYTES 4.3 % (2-11); NEUTROPHILS 87.3 % (40-80); RBC 3.82 10x6/uL (4.00-5.40); RDW 19.8 % (11.5-14.5)
[2017-03-05 04:14] LABS: PLATELET COUNT 176 10x3/uL (130-400); WBC 18.5 10x3/uL (4.8-10.8)
[2017-03-05 04:35] LABS: ALBUMIN 2.2 g/dL (3.4-5.0); ANION GAP 12.8 mmol/L (8-16); BILIRUBIN - TOTAL 0.72 mg/dL (0.2-1.3); CALCIUM 8.3 mg/dL (8.5-10.1); CARBON DIOXIDE 27.8 mmol/L (21.0-32.0); CREATININE - SERUM 0.9 mg/dL (0.6-1.3); MAGNESIUM - SERUM 2.2 mg/dL (1.8-2.4); PROTEIN - SERUM 6.3 g/dL (6.4-8.2)
[2017-03-05 04:36] LABS: POTASSIUM - SERUM 4.6 mmol/L (3.5-5.1)
--- NOTE | 2017-03-05 04:57 | NUR ---
RESTING, NO S&S OF DISTRESS NOTED. VSS, BED LOW AND LOCKED, CALL LIGHT IN REACH. WILL CPOC.
--- NOTE | 2017-03-05 07:15 | NUR ---
PT ALERT AND ORIENTED, ON BIPAP AT 40%, VSS, DENIES PAIN, MIDLINE TO LUE CDI, NS KVO WITH ABT, STONE DRAINING YELLOW URINE, SCDS IN PLACE, WILL SONIYA NUE TO MONITOR
--- NOTE | 2017-03-05 09:09 | NUR ---
PT TOOK AM MEDICATIONS AND TOLERATED BREAKFAST WELL ON OXIMIZER AT 6L, DENIES PAIN, VSS, WILL CONTINUE TO MONITOR
--- NOTE | 2017-03-05 09:37 | NUR ---
NUTRITION F/U FAMILY AT BEDSIDE. PT REPORTS IMPROVED PO INTAKE [facility] SOFT/THIN LIQUID DIET. WILL CONTINUE TO PROVIDE DIET, ENCOURAGE PO INTAKE. RD FOLLOWING
--- NOTE | 2017-03-05 10:35 | NUR ---
PAGED DR ERIC BLOOD SUGAR IS 435 AND WAS CHECKED TWICE.
--- NOTE | 2017-03-05 11:02 | NUR ---
DR SUAREZ RETURNED CALL AND DISCUSSED FOODS PT HAD EATEN TODAY WITH INSULIN PER SCALE, NO NEW ORDERS
--- NOTE | 2017-03-05 11:26 | NUR ---
PT COMPLAINING OF CHEST PAIN "IN MY HEART" AND REQUESTS NORCO, EXPLAINED THAT FOR CHEST PAIN SHE NEEDS TO TAKE A NITRO AND SHE STATES "ILL TAKE WHATEVER BUT I STILL WANT A NORCO" THEN SAYS THAT HER BACK IS ALSO HURTING, PT TOOK NITRO, BP AND HR STABLE, ALSO TOOK NORCO FOR BACK PAIN
--- NOTE | 2017-03-05 11:57 | NUR ---
BLOOD SUGAR NOW 464, NEW ORDERS FOR ONE TIME DOSE OF 10 UNITS HUMULIN R SUBQ
--- NOTE | 2017-03-05 12:48 | NUR ---
PT SON IN ROOM AND WAS UPDATED AT BEGINNING OF 1200 VISITATION THAT PT BLOOD SUGAR WAS OVER 400, PT ALSO ALERT AND ORIENTED AND AWARE OF BLOOD SUGAR, WHEN FAMILY ASKED AT 1230 WHEN SHE WOULD GET LUNCH I TOLD THEM THAT BLOOD SUGAR WOULD BE RECHECKED AT 1 TO SEE IF IT HAD GONE DOWN AND DAUGHTER SAID THAT SHE HAD GIVEN HER SOME JELLO WITH SUGAR IN IT. AGAIN DISCUSSED WITH PT, SON AND THIS TIME ALSO HER DAUGHTER THAT SHE DID NOT NEED TO EAT THINGS WITH SUGAR IN THEM ESPECIALLY WITH HER BLOOD SUGAR SO HIGH, THEY ALL STATE UNDERSTANDING
--- NOTE | 2017-03-05 13:31 | NUR ---
BLOOD SUGAR TRENDING DOWN TO 338
--- NOTE | 2017-03-05 14:29 | NUR ---
@1313, RECEIVED A CALL FROM PAULO ROJAS IN ICU TO LET ME KNOW THAT DR SMILEY HAS PUT IN A CASEMANAGMENT ORDER TO TRANSFER PATIENT TO [facility], MAY NEED LVAD FOR MVR. SHE WAS UNSURE IF DR SMILEY WOULD BE THE SENDING DOCTOR OR NOT. @ 1315, SPOKE WITH ORA BROWN WITH DR SMILEY. SHE STATED THAT DR SMILEY WOULD NOT BE THE SENDING DOCTOR, TO TRY THE PCP OR THE AUTO FLEET MANAGER TO FACILITATE THE TRANSFER SECONDARY TO THEM SEEING HER MORE AND BEING MORE FAMILIAR WITH HER. @1323, SPOKE WITH DR SUAREZ AND SHE STATED THAT SHE HAD NOT SEEN THE PATIENT AND REQUESTED THAT CARDIOLOGY FACILITATE SINCE THEY ARE FAMILIAR WITH HER. @1351, SPOKE WITH DR PINEDA. HE AGREED TO FACILITATE THE TRANSFER. HE REQUESTED THAT [facility] BE GIVEN HIS PAGER NUMBER ([phone]) OR THE DINING SERVICE WORKER NUMBER ([phone]), AND HE RECOMMENDED THE PAGER NUMBER. @1353, SPOKE WITH ORA HINESCHIMNEY BUILDER BRICK. @1354, DONNY CALLED BACK AND STATED THE TRANSFER WAS APPROVED BY KIRSTEN BAL, SANDWICH MAKER ASSOCIATE MARKETING MANAGER. @ 1355 CALL WAS PLACED TO [facility] ([phone]) AND I SPOKE WITH DARWIN. IT WAS EXPLAINED THAT DR ANA PINEDA WANTED TO TRANSFER PATIENT TO [facility] SECONDARY TO PATIENT MAY NEED A LEFT VENTRICULAR ASSISTIVE DEVICE FOR MITRAL VALVE REGURGITATION. DR PINEDA'S INFORMATION WAS GIVEN TYPED ABOVE. SHE STATED THAT SHE WOULD CONTACT THEIR AUTO FLEET MANAGER AND HAVE THEM CALL DR PINEDA. @1417, DR PINEDA CALLED AND STATED THAT [facility] DOES NOT DO LVAD'S. HE SAID THAT HE WOULD HAVE TO SEE IF SHE COULD TRANSFER TO [facility] OR HE WOULD HAND IT OFF TO DR BUSTOS TO WORK ON TRANSFER TO [facility]. PATIENTS NURSE CANDICE RN WAS NOTIFIED WELL ORA HINESCHIMNEY BUILDER BRICK.
--- NOTE | 2017-03-05 14:29 | NUR ---
IV FLUIDS CHANGED TO NEW MIDLINE IN RIGHT UPPER ARM, DOBUTAMINE STARTED, BLOOD SUGAR 264, FOOD OFFERED AND PT SAID SHE DID NOT WANT ANYTHING
--- NOTE | 2017-03-05 16:12 | NUR ---
Patient Name: IDALIA DALAL Encounter No: [id number] : 1955 Primary Insurance: MEDICAID [facility] [place] Date: 01-31-2017 Planned Disposition: HOSPITAL TRANSFER External Planned Provider: [facility] DCP follow-up note: CM RECEIVED ORDER FOR TRANSFER TO [facility], SPOKE TO PT IN ROOM WHO REPORTS AGREEMENT WITH TRANSFER SHE NEEDS THE SURGERY AND HAS DISCUSSED THIS WITH THE DOCTOR. PT REPORTS HAVING FAMILY IN [place] TO ASSIST AFTER DISCHARGE IF NEEDED. CM SPOKE TO RN [facility] WHO ADVISED THAT [facility] DOES NOT PERFORM NEEDED PROCEDURE AND THAT DR. PINEDA IS CONTACTING [facility]. CM NOTIFIED PT IN ROOM, PT STILL IN AGREEMENT WITH TRANSFER. CM TO CONTINUE TO FOLLOW AND ASSIST NEEDED. Ridge Lomeli, CASE MANAGEMENT
--- NOTE | 2017-03-05 16:44 | NUR ---
PT ATE HARDEES AND A "SUGAR BUN" FROM FAMILY THEN BEGAN EATING JELLO, BROUGHT CURRENT BLOOD SUGAR AND EARLIER BLOOD SUGAR TO PT ATTENTION AND PT BEGAN SCREAMING "I JUST WONT FUCKING EAT ANYTHING EVER AGAIN! ILL CALL THE KITCHEN AND TELL THEM NEVER FEED ME AND ILL NEVER EAT!" ATTEMPTED TO DISCUSS WITH PT THAT THE JELLO THAT HER DAUGHTER SAID SHE HAD MADE WITH SUGAR SHOULD JUST BE EATEN IN MODERATION IT IS IN A LARGE CONTAINER AND SHE HAD JUST HAD A LARGE AMOUNT OF CARBS, ATTEMPTED TO DISCUSS HOW CARBS AND SUGARS AFFECT DIABETICS AND PT WAS UNABLE TO BE CALMED, TALKED TO WITH ANOTHER NURSE AND PT THEN BEGAN CRYING SAYING THAT SHE WAS SORRY AND SHE JUST FELT BAD AND SHE DIDNT MEAN SHE WOULD NEVER EAT AND REQUESTED ATIVAN, SUGGESTED ORAL XANAX AND PT SAID SHE FELT LIKE SHE NEEDED ATIVAN, ADMINISTERED PER EMAR, VSS, PT NO LONGER CRYING AND SAYS SHE FEELS "MUCH BETTER"
--- NOTE | 2017-03-05 17:14 | NUR ---
PT REPOSITIIONED, VSS, OFFERED AND ACCEPTED DINNER TRAY, WILL CONTINUE TO MONITOR
--- NOTE | 2017-03-05 19:30 | NUR ---
REPORT RECIEVED ASSESSMENT COMPLETED. SEE FLOW SHEET FOR FURTHER DETAILS. VSS. WILL CONTINUE TO MONITOR PT.
--- NOTE | 2017-03-05 21:00 | NUR ---
FAMILY AT BEDSIDE. UPDATE PROVIDED. PT ENJOYING FAMILY AT BED SIDE, WILL CONTINUE TO MONITOR PT.
--- NOTE | 2017-03-05 23:00 | NUR ---
REASSESSMENT COMPLTED AT THIS TIME. NO ACUTE CHANGES. PT POSITIONED FOR COMFORT WILL CONTINUE TO MONITOR.
[2017-03-06] VITALS (24 sets, daily range): BP systolic 102–133; BP diastolic 65–85
--- NOTE | 2017-03-06 01:00 | NUR ---
PT SLEEPING WITH NO SIGNS OF DISTRESS WITH BIPAP ON WILL CONTINUE TO MONITOR.
--- NOTE | 2017-03-06 03:08 | NUR ---
REASSESSMENT COMPLETED. NO ACUTE CHANGES AT THIS TIME. WILL CONTINUE TO MONITOR PT.
[2017-03-06 04:26] LABS: BASOPHILS 0 % (0-2); EOSINOPHILS 0 % (0-7); HEMATOCRIT 33.2 % (36.0-48.0); HEMOGLOBIN 10.8 g/dL (12-16); IMMATURE GRANULOCYTES 0.3 % (0-5); LYMPHOCYTES 8.7 % (15-50); MCHC 32.5 g/dL (31.0-37.0); MEAN PLATELET VOLUME 10.3 fL (7.4-10.4); MONOCYTES 6.8 % (2-11); NEUTROPHILS 84.2 % (40-80); RBC 3.73 10x6/uL (4.00-5.40); RDW 19.7 % (11.5-14.5); WBC 14.5 10x3/uL (4.8-10.8)
[2017-03-06 04:30] LABS: PLATELET COUNT 122 10x3/uL (130-400)
--- NOTE | 2017-03-06 05:13 | NUR ---
PT WATCHIN TV IN BED WITH NO SIGNS OF DISTRESS AT THIS POINT. GAVE THE PT SOME ANXIETY MEDS AND A PAIN PILL ABOUT 0450. SHE WAS SHAKING WITH ANXIETY. PT SEEMS TO BE SHOWING NO SIGNS OF DISTRESS AT THIS OINT.
[2017-03-06 05:37] LABS: ANION GAP 13.9 mmol/L (8-16); CALCIUM 8.4 mg/dL (8.5-10.1); CARBON DIOXIDE 27.1 mmol/L (21.0-32.0); MAGNESIUM - SERUM 2.1 mg/dL (1.8-2.4)
--- NOTE | 2017-03-06 07:00 | NUR ---
REC'D REPORT AND RESUMED CARE, AWAKE AND ORIENTED, BIPAP IN USE AT 40%, O2 SAT 98%, VSS, DENIES PAIN AT THIS TIME, ASSESSMENT COMPLETE PER FLOWSHEET, NO NEEDS AT THIS TIME
--- NOTE | 2017-03-06 07:45 | NUR ---
BIPAP OFF, O2 VIA OXYMIZER AT 3L, BREAKFAST TRAY TO BEDSIDE, INDEPENDENT WITH SET UP AND EATING
--- NOTE | 2017-03-06 09:00 | NUR ---
AM MEDS GIVEN WITHOUT DIFFICULTY PER MAR FLOWSHEET
--- NOTE | 2017-03-06 11:00 | NUR ---
SLEEPING WITH NO SIGN OF DISTRESS, VSS, NO ACUTE CHANGE FROM PREVIOUS ASSESSMENT
--- NOTE | 2017-03-06 11:18 | NUR ---
@ 1056 RECEIVED A CALL FROM ORA AGUILAR IN THE ICU. SHE STATED THAT SHE NEEDED HELP WITH THE PATIENT THAT SHE HAD AN ORDER TO TRANSFER THE PATIENT TO [facility]. I QUESTIONED WHO HAD PLACED THE ORDER AND WAS TOLD DR SMILEY. EXPLAINED THAT I HAD SPOKE WITH ORA BROWN THIS AM AND EXPLAINED THE CONVERSATION BETWEEN DR PINEDA AND MYSELF FROM YESTERDAY, ALREADY. BUT IT WAS EXPLAINED THAT I WOULD FOLLOW UP WITH DR PINEDA AFTER THE MEETING I WAS CURRENTLY IN. @[address] PINEDA. @ 1111 HE CALLED BACK AND I EXPLAINED THE ABOVE CONVERSATION TO HIM. HE EXPLAINED THAT THE PERSON HE NEEDED TO SPEAK WITH WAS CURRENTLY IN THE OR AND HE WAS NOT ABLE TO TALK TO HIM, THAT HE WOULD FOLLOW UP WITH HIM AFTER HE IS DONE IN THE OR. @5404 CALLED AND SPOKE WITH ORA AGUILAR IN THE ICU AND EXPLAINED THIS TO HER.
--- NOTE | 2017-03-06 12:00 | NUR ---
FAMILY AT BEDSIDE, STATUS UPDATED, VOICES NO NEEDS AT THIS TIME
--- NOTE | 2017-03-06 13:15 | NUR ---
DR SMILEY AT BEDSIDE, NEW ORDER GIVEN, PATIENT SCHEDULED FOR LIZZ, ON 03/07, IF TRANSFER TO [facility] HAPPENS TODAY, DO NOT HOLD FOR LIZZ
--- NOTE | 2017-03-06 13:27 | NUR ---
DR CONKLIN AND DR RODRIGUEZ AT BEDSIDE FOR EVAL,
--- NOTE | 2017-03-06 17:00 | NUR ---
DINNER TRAY TO BEDSIDE, INDEPENDENT WITH SET UP AND EATING
--- NOTE | 2017-03-06 19:30 | NUR ---
REPORT RECIEVED. ASSESSMENT COMPLETED. SEE FLOW SHEET FOR FURTHER DETAILS. PT REQUESTED A XANAX AND A PAIN PILL PROVIDED. PT ALSO REQUESTED A POPSICLE PROVIDED. WILL CONTINUE TO MONITOR PT.
--- NOTE | 2017-03-06 21:00 | NUR ---
PT DAUGHTER AT BED SIDE. PT ENJOYING THE VISIT. WILL CONTINUE TO MONITOR.
--- NOTE | 2017-03-06 23:00 | NUR ---
REASSESSMENT COMPLETED. SEE FLOW SHEET FOR DETAILS. PT COMPLAIN OF MIRIAM AREA ICHING GAVE HER SUPPLIES AND ASSISTED HER IN CLEANING AREA. PT STATES FEELS SO MUCH BETTER.
[2017-03-07] VITALS (19 sets, daily range): BP systolic 105–137; BP diastolic 72–94
--- NOTE | 2017-03-07 01:00 | NUR ---
PT RESTING WITH NO SIGNS OF DISTRESS. WILL CONTINUE TO MONITOR PT.
--- NOTE | 2017-03-07 03:00 | NUR ---
REASSESSMENT COMPLETED AT THIS TIME. NO ACUTE CHANGES. SEE FLOW SHEET FOR FURTHUR DETAILS. WILL CONTINUE TO MONITOR PT.
[2017-03-07 04:05] LABS: BASOPHILS 0 % (0-2); EOSINOPHILS 0 % (0-7); HEMATOCRIT 31.8 % (36.0-48.0); HEMOGLOBIN 10.2 g/dL (12-16); IMMATURE GRANULOCYTES 0.4 % (0-5); LYMPHOCYTES 12.4 % (15-50); MCHC 32.1 g/dL (31.0-37.0); MCV 87.4 fL (80.0-100.0); MEAN PLATELET VOLUME 10.2 fL (7.4-10.4); MONOCYTES 4.6 % (2-11); NEUTROPHILS 82.6 % (40-80); PLATELET COUNT 115 10x3/uL (130-400); RBC 3.64 10x6/uL (4.00-5.40); RDW 18.9 % (11.5-14.5)
--- NOTE | 2017-03-07 05:00 | NUR ---
PT RESTING WITH NO SIGNS OF DISTRESS. WILL CONTINUE TO MONITOR PT.
--- NOTE | 2017-03-07 07:00 | NUR ---
RECEIVED REPORT FROM JUSTIN. PATIENT ASLEEP AND EASILY AROUSABLE. C/O CP 8/ SINCE LAST NIGHT. PRIMARY NURSE, KRISTINE, NOTIFIED. HEART SOUNDS REGULAR. PERIPHERAL PULSES +2 AND CAP REFILL TO ALL EXTRLEMITIES <3 SECONDS. PATIENT NPO FOR LIZZ TODAY. DOES NOT REQUEST ANYTHING AT THIS TIME.
--- NOTE | 2017-03-07 10:24 | NUR ---
NUTRITION F/U CHART REVIEWED. PT CURRENTLY NPO FOR LIZZ. PIPE STRIPPER REPORTS PT MAY TX TO [facility]. WILL PROVIDE DIET WHEN RESUMED, MONITOR PO INTAKE. RD FOLLOWING
--- NOTE | 2017-03-07 10:57 | NUR ---
PREOP MEDS GIVEN INCLUDING ROBINUL, REGLAN, AND PEPCID. NS IVF HUNG WELL.
--- NOTE | 2017-03-07 12:17 | NUR ---
TAKEN FOR LIZZ. REPORT CALLED TO SHAMIKA IN CVICU AT [facility].
--- NOTE | 2017-03-07 12:57 | NUR ---
RECEIVED POST LIZZ PROCEDURE. PATIENT EASILRY AROUSABLE AND ORIENTED. NO CHANGES TO CARDIOVASCULAR STATUS. VSS. DR. SMILEY AT BEDSIDE.
--- NOTE | 2017-03-07 13:31 | NUR ---
[facility] ETA 45 MINUTES.
--- NOTE | 2017-03-07 14:27 | NUR ---
[facility] HERE TO TRANSFER PATIENT TO [facility]--HANDOFF GIVEN.
[2017-03-09 14:23] LABS: FUNGUS MYCOLOGY CULTURE Final report (())
--- NOTE | 2017-03-10 11:44 | OP ---
PATIENT NAME: IDALIA DALAL MEDICAL RECORD: [id number] :51 LOCATION:[facility] [id number] ADMISSION DATE:01/27/17 SURGEON: LISA LAWS MD DATE OF OPERATION: 03/07/2017 SURGEON: Lisa Laws MD ANESTHESIA: Dr. Guadalupe. OPERATION PERFORMED: Transesophageal echo. PREOPERATIVE DIAGNOSES: Mitral regurgitation, pulmonary failure. POSTOPERATIVE DIAGNOSES: Mitral regurgitation, pulmonary failure. INDICATION FOR OPERATION: Mitral regurgitation. FINDINGS AT OPERATION: Moderately severe mitral regurgitation with thickened anterior leaflet, inferior hypokinesis. ESTIMATED BLOOD LOSS: None. DESCRIPTION OF PROCEDURE: After informed consent, adequate preoperative medication evaluation, the patient was brought to the operating room, placed on the table in the supine position. After induction of anesthesia and appropriate monitoring devices, the patient underwent transesophageal echo by Dr. Guadalupe interpreted real-time by me. The patient's left atrium is enlarged. There is no atrial shunt. The left ventricular function demonstrates inferior hypokinesis. The aortic valve is trileaflet and satisfactory function. The mitral valve is a thickened anterior leaflet and moderately severe mitral regurgitation. The scope was withdrawn. The patient tolerated the procedure well and was transferred to the ICU in satisfactory condition. TRANSINT:[id number] Voice Confirmation ID: [id number] DOCUMENT ID: [id number] LISA LAWS MD at 1144 CC: [id number] DICTATION DATE: 03/07/17 1327 [employer] FA[employer] WORKER: 03/07/17 1405 DIS IN 03/07/17 [id number] [place] [address]
--- NOTE | 2017-03-23 16:56 | TEE ---
PATIENT:IDALIA DALAL MEDICAL RECORD: [id number] LOCATION:[facility] AGE OF PATIENT: 61 ADMISSION DATE: 01/27/17 SEX: F REFERRING PHYSICIAN: INTERPRETING PHYSICIAN: MEG BILLINGSLEY MD TRANSESOPHAGEAL ECHOCARDIOGRAM LIZZ CHARGE Y INDICATIONS: MR PREMEDICATIONS: PATIENT'S RESPONSE PROCEDURE DOPPLER MEASUREMENTS: LVIT 0 LA 0 PA 0 RA 0 LVOT 0 RVOT 0 Asc. Ao 0 AV Gradient Peak 0 AV Mean 0 AV Area 0 MV Gradient Peak 0 MV Mean 0 MV Area 0 INTERPRETATION: Doppler: 2-D: COLOR FLOW DOPPLER NORMAL SALINE STUDY: MISCELLANOUS: DIAGNOSIS: PLAN: Whiskey Regauger:1 Dr. Billingsley Director Of Physician Practices: Kemal ORR COMMENTS: LIMITED STUDY FOR EF AND MR (2-D & COLOR ONLY) DATE OF SERVICE: 03/07/2017 Transesophageal echo evaluation of valvular structures during mitral valve replacement surgery. FINDINGS: 1. Left ventricular chamber size is mildly dilated. Left ventricular systolic function is moderately reduced, overall ejection fraction 35%. 2. Left atrium, right atrium, and right ventricular chamber sizes are mildly TRANSESOPHAGEAL ECHOCARDIOGRAM REPORT [id number] IDALIA DALAL dilated. 3. Valvular structures have normal structure and motion. 4. Doppler interrogation reveals severe mitral regurgitation. This is not a new finding. The patient is scheduled for mitral valve replacement. The remaining valvular structures have normal structure and motion with no significant valvular insufficiency or stenosis. TRANSINT:[id number] Voice Confirmation ID: [id number] DOCUMENT ID: [id number] 03/19/2017 Edited to correct date of service, dmm. at 1656 CC: [id number] DICTATION DATE: 03/08/17 1243 GALLEY STRIPPER: 03/08/17 2211 DIS IN 03/07/17 [place] [address] [facility] [place] [address]
--- NOTE | 2017-03-23 16:56 | EC ---
PATIENT:IDALIA DALAL DATE OF SERVICE: 01/27/17 SEX: F MEDICAL RECORD: [id number] DATE OF : 51 LOCATION:[facility] D230 AGE OF PATIENT: 61 ADMISSION DATE: 01/27/17 REFERRING PHYSICIAN: INTERPRETING PHYSICIAN: MEG BILLINGSLEY MD ECHOCARDIOGRAM REPORT ECHO CHARGES 5 ECHO LIMITED CLINICAL DIAGNOSIS: CHF ECHOCARDIOGRAPHIC MEASUREMENTS (adult normal given) AC root (d.<3.7cm) 0 cm LV Septum d (<1.2 cm> 0 cm Valve Excursion 0 cm LV Septum (systole) 0 cm Left Atria (s.<4.0cm> 0 cm LVPW d(<1.2cm) 0 cm RV (d.<2.3cm) 0 cm LVPW (sytole) 0 cm LV diastole(<5.6CM) 0 cm MV E-F(>70mm/sec) 0 cm LV systole 0 cm LVOT Diameter 0 cm MV exc.(>10mm) 0 cm Est.ejection fraction (50-75%) 0 % Pericardial Effusion N DOPPLER: LVIT 0 cm/sec A 0 cm/sec E 0 cm/sec LA 0 cm/sec RVSP 0 mmHg LVOT 0 cm/sec AOP1/2T 0 m/s Asc. Ao 0 cm/sec RVOT 0 cm/sec RA 0 cm/sec PA 0 cm/sec AV Gradient Peak 0 mmHg AV Mean 0 mmHg AV Area 0 cm MV Gradient Peak 0 mmHg MV Mean 0 mmHg MV Area 0 cm COMMENTS: LIMITED STUDY FOR EF AND MR (2-D & COLOR ONLY) Vice President Digital Strategist: Kemal ORR Wallcovering Hanger: Kemal Billingsley TAPE# PACS DATE OF SERVICE: 03/02/2017 LIMITED ECHOCARDIOGRAM FINDINGS: 1. Left ventricular chamber size is within normal limits. Left ventricular systolic function is mildly depressed. Overall ejection fraction is 40%. 2. Doppler interrogation reveals severe mitral regurgitation. No other valvular insufficiency or stenosis. ECHOCARDIOGRAM REPORT [id number] IDALIA DALAL TRANSINT:[id number] Voice Confirmation ID: [id number] DOCUMENT ID: [id number] MEG BILLINGSLEY MD at 1652 CC: [id number] DICTATION DATE: 03/02/17 1414 FRUIT HARVESTER MACHINE OPERATOR: 03/02/17 1528 DIS IN 03/07/17 [facility] [address] [place] [address]
[2017-04-01 09:08] LABS: ACID FAST CULTURE Negative (()); ACID FAST SMEAR Negative (())
== END 2017-03-07 14:36 | disposition short-term general hospital (02) | DRG 248 ==
LOC: D.ER 03:32 → D.M2 05:38 → D.ICU 05:38 → D.M2 03-01 15:14 → D.ICU 03-02 21:13
PROVIDERS: Emergency Medicine; Family Medicine; Family Medicine Adult Medicine; Internal Medicine Cardiovascular Disease; Internal Medicine Gastroenterology; Internal Medicine Interventional Cardiology; Internal Medicine Pulmonary Disease; ADMIT Family Medicine
PROC: B2111ZZ Fluoroscopy of Multiple Coronary Arteries using Low Osmolar Contrast (ICD-10-PCS; 2017-01-30)
PROC: B2151ZZ Fluoroscopy of Left Heart using Low Osmolar Contrast (ICD-10-PCS; 2017-01-30)
PROC: B240ZZ3 Ultrasonography of Single Coronary Artery, Intravascular (ICD-10-PCS; 2017-01-30)
PROC: 02703DZ Dilation of Coronary Artery, One Artery with Intraluminal Device, Percutaneous Approach (ICD-10-PCS; principal; 2017-01-30 11:30)
PROC: 4A023N7 Measurement of Cardiac Sampling and Pressure, Left Heart, Percutaneous Approach (ICD-10-PCS; 2017-01-30 11:30)
PROC: 0BB78ZX Excision of Left Main Bronchus, Via Natural or Artificial Opening Endoscopic, Diagnostic (ICD-10-PCS; 2017-02-08)
PROC: 0BB38ZX Excision of Right Main Bronchus, Via Natural or Artificial Opening Endoscopic, Diagnostic (ICD-10-PCS; 2017-02-08)
PROC: 0B958ZX Drainage of Right Middle Lobe Bronchus, Via Natural or Artificial Opening Endoscopic, Diagnostic (ICD-10-PCS; 2017-02-08)
PROC: 5A09457 Assistance with Respiratory Ventilation, 24-96 Consecutive Hours, Continuous Positive Airway Pressure (ICD-10-PCS; 2017-02-10)
PROC: 05HC33Z Insertion of Infusion Device into Left Basilic Vein, Percutaneous Approach (ICD-10-PCS; 2017-02-14)
PROC: B54NZZA Ultrasonography of Left Upper Extremity Veins, Guidance (ICD-10-PCS; 2017-02-14)
PROC: 05HB33Z Insertion of Infusion Device into Right Basilic Vein, Percutaneous Approach (ICD-10-PCS; 2017-03-05)
PROC: B54MZZA Ultrasonography of Right Upper Extremity Veins, Guidance (ICD-10-PCS; 2017-03-05)
PROC: B245ZZ4 Ultrasonography of Left Heart, Transesophageal (ICD-10-PCS; 2017-03-07)
DX: I08.1 Rheumatic disorders of both mitral and tricuspid valves (principal); J69.0 Pneumonitis due to inhalation of food and vomit; J96.21 Acute and chronic respiratory failure with hypoxia; J15.212 Pneumonia due to Methicillin resistant Staphylococcus aureus; I50.43 Acute on chronic combined systolic (congestive) and diastolic (congestive) heart failure; J44.1 Chronic obstructive pulmonary disease with (acute) exacerbation; I47.2 Ventricular tachycardia; D62 Acute posthemorrhagic anemia; J44.0 Chronic obstructive pulmonary disease with (acute) lower respiratory infection; I25.119 Atherosclerotic heart disease of native coronary artery with unspecified angina pectoris; I11.0 Hypertensive heart disease with heart failure; F41.8 Other specified anxiety disorders; B18.2 Chronic viral hepatitis C; K74.60 Unspecified cirrhosis of liver; G40.909 Epilepsy, unspecified, not intractable, without status epilepticus; E11.65 Type 2 diabetes mellitus with hyperglycemia; E11.40 Type 2 diabetes mellitus with diabetic neuropathy, unspecified; E87.6 Hypokalemia; E78.5 Hyperlipidemia, unspecified; K21.9 Gastro-esophageal reflux disease without esophagitis; Z77.090 Contact with and (suspected) exposure to asbestos; D50.9 Iron deficiency anemia, unspecified; R51 Headache; R14.0 Abdominal distension (gaseous); F41.9 Anxiety disorder, unspecified; F32.9 Major depressive disorder, single episode, unspecified; Z95.5 Presence of coronary angioplasty implant and graft; Z86.73 Personal history of transient ischemic attack (TIA), and cerebral infarction without residual deficits; Z87.891 Personal history of nicotine dependence

== ENCOUNTER 2017-04-11 18:16 | Emergency (ER) | payer MEDICAID ==
[2017-01-27 12:08] VITALS: BMI 21.8
[~2017-04-11 18:16] MED LIST changes: +GABAPENTIN100 MG PO; +OMEPRAZOLE40 MG PO
== END 2017-04-11 20:19 | disposition left against medical advice (07) ==
LOC: D.ER 18:16
DX: Z02.9 Encounter for administrative examinations, unspecified (principal)

== ENCOUNTER 2017-04-22 05:01 | Emergency (ER) | payer MEDICAID ==
[2017-01-27 12:08] VITALS: BMI 21.8
[2017-04-22 05:57] LABS: BASOPHILS 0.2 % (0-2); EOSINOPHILS 1.7 % (0-7); HEMATOCRIT 30.4 % (36.0-48.0); HEMOGLOBIN 9.6 g/dL (12-16); IMMATURE GRANULOCYTES 0.2 % (0-5); LYMPHOCYTES 29.7 % (15-50); MCH 24.7 pg (26.0-34.0); MCHC 31.6 g/dL (31.0-37.0); MCV 78.1 fL (80.0-100.0); MEAN PLATELET VOLUME 9.9 fL (7.4-10.4); MONOCYTES 6.6 % (2-11); NEUTROPHILS 61.6 % (40-80); PLATELET COUNT 158 10x3/uL (130-400); RBC 3.89 10x6/uL (4.00-5.40); WBC 10.5 10x3/uL (4.8-10.8)
[2017-04-22 06:15] LABS: ALBUMIN 2.3 g/dL (3.4-5.0); ALKALINE PHOSPHATASE 134 U/L (46-116); ALT (SGPT) 68 U/L (10-68); CHLORIDE - SERUM 95 mmol/L (98-107); CREATININE - SERUM 0.7 mg/dL (0.6-1.3); MAGNESIUM - SERUM 1.5 mg/dL (1.8-2.4); PROTEIN - SERUM 6.6 g/dL (6.4-8.2); SODIUM 135 mmol/L (136-145); UREA NITROGEN 5 mg/dL (7-18); eGFR NON AFRICAN AMERICAN 89 mL/min (90-120)
[2017-04-22 06:22] LABS: CALC OSMOLALITY 271 mosm/kg (275-300); GLUCOSE 197 mg/dL (74-106)
[2017-04-22 06:24] LABS: POTASSIUM - SERUM 2.6 mmol/L (3.5-5.1)
[2017-04-22 06:25] LABS: APPEARANCE HAZY (CLEAR); BILIRUBIN NEGATIVE (NEGATIVE); COLOR YELLOW (YELLOW); GLUCOSE NEGATIVE (NEGATIVE); KETONE NEGATIVE (NEGATIVE); NITRITE NEGATIVE (NEGATIVE); PH 5.5 (5.0-6.0); PROTEIN NEGATIVE (NEGATIVE); UROBILINOGEN NORMAL (NORMAL)
[2017-04-22 06:36] LABS: BACTERIA FEW /hpf (NONE SEEN); EPITHELIAL CELLS 0-5 /hpf (0-5); RED CELLS - URINE 0-5 /hpf (0-5); WHITE CELLS - URINE 0-5 /hpf (0-5)
[2017-04-22 06:41] LABS: UDS - AMPHET NEGATIVE QUAL (NEGATIVE); UDS - BARB NEGATIVE QUAL (NEGATIVE); UDS - BENZO NEGATIVE QUAL (NEGATIVE); UDS - COCAINE NEGATIVE QUAL (NEGATIVE); UDS - OPIATE POSITIVE QUAL (NEGATIVE); UDS - PCP NEGATIVE QUAL (NEGATIVE); UDS - THC NEGATIVE QUAL (NEGATIVE)
== END 2017-04-22 08:20 | disposition home or self-care (01) ==
LOC: D.ER 05:01
PROVIDERS: Family Medicine
DX: E11.65 Type 2 diabetes mellitus with hyperglycemia (principal); E87.6 Hypokalemia; E83.42 Hypomagnesemia; F41.9 Anxiety disorder, unspecified; F17.200 Nicotine dependence, unspecified, uncomplicated

== ENCOUNTER → 2017-05-23 14:03 | Outpatient (CLI) | payer MEDICAID ==
[2017-01-27 12:08] VITALS: BMI 21.8
[~2017-05-23 14:03] MED LIST changes: +GLUCOTROL ER2.5 MG PO; +LIPITOR80 MG PO; +MAG-OX 400 MG400 MG PO; +NORCO 7.5/325 T1 TA1 PO; +PROTONIX I40 MG/VIAL PO; +TOPROL XL25 MG PO; +TORSEMIDE20 MG PO; +ULTRAM50 MG PO; +ZOFRAN4 MG PO
== END | disposition home or self-care (01) ==
LOC: D.RAD 14:03
DX: R06.02 Shortness of breath (principal)

== ENCOUNTER 2017-05-27 13:55 | Inpatient (IN) | payer MEDICAID ==
[~2017-05-27] VITALS: Ht 162.6 cm; Wt 54.4 kg
--- NOTE | ~2017-05-27 | EC ---
PATIENT:IDALIA DALAL DATE OF SERVICE: 05/29/17 SEX: F MEDICAL RECORD: [id number] DATE OF : 51 LOCATION:[facility] AGE OF PATIENT: 62 ADMISSION DATE: 05/29/17 REFERRING PHYSICIAN: INTERPRETING PHYSICIAN: GERARDO WELLS MD ECHOCARDIOGRAM REPORT ECHO CHARGES 4 ECHO COMPLETE CLINICAL DIAGNOSIS: CP - S/P MV REPAIR ECHOCARDIOGRAPHIC MEASUREMENTS (adult normal given) AC root (d.<3.7cm) 2.7 cm LV Septum d (<1.2 cm> 1.2 cm Valve Excursion 1.7 cm LV Septum (systole) 1.6 cm Left Atria (s.<4.0cm> 4.0 cm LVPW d(<1.2cm) 1.2 cm RV (d.<2.3cm) 2.9 cm LVPW (sytole) 1.6 cm LV diastole(<5.6CM) 6.0 cm MV E-F(>70mm/sec) cm LV systole 4.1 cm LVOT Diameter 1.4 cm MV exc.(>10mm) cm Est.ejection fraction (50-75%) % Pericardial Effusion N DOPPLER: LVIT cm/sec A 137 cm/sec E 195 cm/sec LA cm/sec RVSP 45.0 mmHg LVOT 117 cm/sec AOP1/2T m/s Asc. Ao 111 cm/sec RVOT 72.0 cm/sec RA cm/sec PA 76.0 cm/sec AV Gradient Peak 5.0 mmHg AV Mean 2.7 mmHg AV Area 1.2 cm MV Gradient Peak 15.0 mmHg MV Mean 7.6 mmHg MV Area cm COMMENTS: Boxing Inspector: Kemal MELÉNDEZOE Reweaver: 4 Dr. Wells TAPE# PACS DATE OF SERVICE: 05/30/2017 PROCEDURE: Transthoracic echocardiogram. FINDINGS: 1. Left ventricle is upper limits of normal to mildly dilated. 2. Left ventricle shows regional wall motion abnormalities with posterior hypokinesis that is kyysxfag-dn-egythy in intensity. The overall ejection fraction is in the 35% range. It should be noted that the lateral wall endocardia was not well visualized, which may affect the estimation of LV ECHOCARDIOGRAM REPORT [id number] IDAILA DALAL function. 3. The mitral valve has a history of mitral valve repair. There is a considerable amount of proximal flow convergence with resultant moderate mitral regurgitation and some evidence of mild mitral stenosis. 4. The left atrium and the right atrium normal size, normal function. 5. The aortic valve is normal. 6. The tricuspid valve has mild tricuspid regurgitation. Estimated RVSP of 45 mmHg. 7. The pericardium is normal. 8. The pulmonic valve is normal. CONCLUSIONS: The patient has evidence of mitral valve repair, has both an ischemic and nonischemic evidence of cardiomyopathy that is moderate in nature with continued resultant at least moderate mitral regurgitation. TRANSINT:[id number] Voice Confirmation ID: [id number] DOCUMENT ID: [id number] GERARDO WELLS MD at 1353 CC: [id number] DICTATION DATE: 05/31/17 0839 FINAL INSPECTOR TRUCK TRAILER: 05/31/17 1125 DIS IN 05/30/17 [facility] [address] [place] [address]
[~2017-05-27 13:55] MED LIST changes: -GLUCOTROL ER2.5 MG PO; -LIPITOR80 MG PO; -MAG-OX 400 MG400 MG PO; -NORCO 7.5/325 T1 TA1 PO; -PROTONIX I40 MG/VIAL PO; -TOPROL XL25 MG PO; -TORSEMIDE20 MG PO; -ULTRAM50 MG PO; -ZOFRAN4 MG PO
[2017-05-27 14:20] LABS: BASOPHILS 0.3 % (0-2); EOSINOPHILS 1.9 % (0-7); HEMATOCRIT 26.5 % (36.0-48.0); HEMOGLOBIN 8.1 g/dL (12-16); IMMATURE GRANULOCYTES 0.1 % (0-5); LYMPHOCYTES 32.5 % (15-50); MCH 21.7 pg (26.0-34.0); MCHC 30.6 g/dL (31.0-37.0); MEAN PLATELET VOLUME 9.3 fL (7.4-10.4); MONOCYTES 9.1 % (2-11); NEUTROPHILS 56.1 % (40-80); RBC 3.73 10x6/uL (4.00-5.40); RDW 16.5 % (11.5-14.5); WBC 6.9 10x3/uL (4.8-10.8)
[2017-05-27 14:24] LABS: PLATELET COUNT 213 10x3/uL (130-400)
[2017-05-27 14:48] LABS: ALBUMIN 2.5 g/dL (3.4-5.0); ALKALINE PHOSPHATASE 98 U/L (46-116); ALT (SGPT) 45 U/L (10-68); BILIRUBIN - TOTAL 0.54 mg/dL (0.2-1.3); CALCIUM 7.8 mg/dL (8.5-10.1); CARBON DIOXIDE 29.7 mmol/L (21.0-32.0); CHLORIDE - SERUM 93 mmol/L (98-107); CHOL - HDL RATIO 2.7 ratio (2.3-4.1); CHOLESTEROL, TOTAL 56 mg/dL (0-200); CKMB 0.6 U/L (0.0-3.6); CREATINE KINASE 35 UL (21-215); HDL CHOLESTEROL 21 mg/dL (32-96); LDL CHOLESTEROL 24 mg/dL (0-100); LDL-HDL RATIO 1.1 ratio (1.5-3.5); PROTEIN - SERUM 6.9 g/dL (6.4-8.2); SODIUM 134 mmol/L (136-145); TRIGLYCERIDE 56 mg/dL (30-200); TROPONIN-I 0.025 ng/mL (0.000-0.060); UREA NITROGEN 12 mg/dL (7-18); eGFR NON AFRICAN AMERICAN 59 mL/min (90-120)
[2017-05-27 14:50] LABS: CALC OSMOLALITY 276 mosm/kg (275-300); GLUCOSE 261 mg/dL (74-106)
[2017-05-27 14:52] LABS: POTASSIUM - SERUM 2.3 mmol/L (3.5-5.1)
[2017-05-27 22:16] VITALS: BP 100/55
[2017-05-27] MEDS ORDERED: MAG-OX 400 MG400 MG PO (22:54)
[2017-05-27] MEDS ORDERED: XANAX0.25 MG PO (22:55)
[2017-05-27] MEDS ORDERED: TORSEMIDE20 MG PO (22:57)
[2017-05-27] MEDS ORDERED: ULTRAM50 MG PO (22:57)
[2017-05-27] MEDS ORDERED: LIPITOR80 MG PO (22:58)
[2017-05-27] MEDS ORDERED: GLUCOTROL ER2.5 MG PO (22:58)
[2017-05-27] MEDS ORDERED: NORCO 7.5/325 T1 TA1 PO (22:59)
[2017-05-27] MEDS ORDERED: TOPROL XL25 MG PO (23:00)
[2017-05-28 01:12] VITALS: BP 100/55; BMI 20.6
[2017-05-28 01:22] VITALS: BP 106/57
[2017-05-28 05:19] VITALS: BP 96/46
[2017-05-28] MEDS ORDERED: ZOFRAN4 MG PO (06:24)
[2017-05-28] MEDS ORDERED: ISOSORBIDE MONO30 M1 PO (06:24)
[2017-05-28 07:33] LABS: HEMATOCRIT 25.2 % (36.0-48.0); MCH 21.4 pg (26.0-34.0); MCHC 29.8 g/dL (31.0-37.0); MEAN PLATELET VOLUME 9.7 fL (7.4-10.4); PLATELET COUNT 175 10x3/uL (130-400); RDW 16.4 % (11.5-14.5); WBC 5.2 10x3/uL (4.8-10.8)
[2017-05-28 07:40] LABS: HEMOGLOBIN 7.5 g/dL (12-16)
[2017-05-28 07:59] LABS: LYMPHOCYTES 58 % (15-50); MICROCYTOSIS 1+; MONOCYTES 7 % (2-11); NEUTROPHILS 35 % (40-80); PLATELET ESTIMATE NORMAL; TARGET CELLS OCC
[2017-05-28 08:09] LABS: CALCIUM 7.7 mg/dL (8.5-10.1); CARBON DIOXIDE 32.2 mmol/L (21.0-32.0); CHLORIDE - SERUM 99 mmol/L (98-107); SODIUM 139 mmol/L (136-145); UREA NITROGEN 9 mg/dL (7-18)
[2017-05-28 08:23] LABS: CALC OSMOLALITY 276 mosm/kg (275-300); CREATININE - SERUM 0.6 mg/dL (0.6-1.3); GLUCOSE 101 mg/dL (74-106); POTASSIUM - SERUM 2.4 mmol/L (3.5-5.1); eGFR NON AFRICAN AMERICAN > 90 mL/min (90-120)
[2017-05-28 08:34] VITALS: BP 106/60
[2017-05-28 12:33] VITALS: BP 116/64
[2017-05-28 16:51] VITALS: BP 96/65
[2017-05-28 18:40] LABS: INR 1.12 (0.85-1.17); PROTIME 13.9 SECONDS (11.6-15.0)
[2017-05-28 18:47] LABS: CKMB 1.1 U/L (0.0-3.6); CREATINE KINASE 38 UL (21-215); FERRITIN 32 ng/mL (3-244); TROPONIN-I 0.023 ng/mL (0.000-0.060)
[2017-05-28 19:55] LABS: % SATURATION 3 % (15-55); IRON 14 ug/dl (35-150); TOTAL IRON BIND CAPACITY 451 ug/dl (260-445); UNSAT IRON BIND CAPACITY 437 ug/dl (150-375)
[2017-05-28 23:46] LABS: HEMATOCRIT 30.9 % (36.0-48.0); HEMOGLOBIN 9.4 g/dL (12-16)
[2017-05-29 00:20] LABS: CKMB 0.6 U/L (0.0-3.6); CREATINE KINASE 48 UL (21-215); TROPONIN-I 0.026 ng/mL (0.000-0.060)
[2017-05-29 02:28] VITALS: BP 106/66
[2017-05-29 04:41] VITALS: BP 139/75
[2017-05-29 08:05] LABS: BASOPHILS 0.4 % (0-2); HEMATOCRIT 30.7 % (36.0-48.0); HEMOGLOBIN 9.4 g/dL (12-16); IMMATURE GRANULOCYTES 0.2 % (0-5); LYMPHOCYTES 36.5 % (15-50); MCH 22.7 pg (26.0-34.0); MCHC 30.6 g/dL (31.0-37.0); MEAN PLATELET VOLUME 10.6 fL (7.4-10.4); MONOCYTES 8.7 % (2-11); NEUTROPHILS 52.2 % (40-80); PLATELET COUNT 198 10x3/uL (130-400); RBC 4.14 10x6/uL (4.00-5.40); RDW 17.1 % (11.5-14.5); WBC 5.4 10x3/uL (4.8-10.8)
[2017-05-29 08:13] LABS: MCV 74.2 fL (80.0-100.0)
[2017-05-29 08:24] LABS: INR 1.18 (0.85-1.17); PROTIME 14.5 SECONDS (11.6-15.0)
[2017-05-29 08:26] VITALS: BP 126/86
[2017-05-29 08:26] LABS: ALBUMIN 2.3 g/dL (3.4-5.0); ALKALINE PHOSPHATASE 96 U/L (46-116); ALT (SGPT) 41 U/L (10-68); AMYLASE - SERUM 45 U/L (25-115); BILIRUBIN - TOTAL 0.75 mg/dL (0.2-1.3); CARBON DIOXIDE 25.2 mmol/L (21.0-32.0); CHLORIDE - SERUM 99 mmol/L (98-107); CHOLESTEROL, TOTAL 54 mg/dL (0-200); CKMB 0.6 U/L (0.0-3.6); CREATINE KINASE 34 UL (21-215); HDL CHOLESTEROL 18 mg/dL (32-96); LDL CHOLESTEROL 24 mg/dL (0-100); LDL-HDL RATIO 1.3 ratio (1.5-3.5); LIPASE 316 U/L (73-393); PRE-ALBUMIN 13.8 mg/dL (18.0-35.7); PROTEIN - SERUM 6.5 g/dL (6.4-8.2); SODIUM 136 mmol/L (136-145); TRIGLYCERIDE 64 mg/dL (30-200); TROPONIN-I 0.033 ng/mL (0.000-0.060); UREA NITROGEN 7 mg/dL (7-18)
[2017-05-29 08:27] LABS: CALC OSMOLALITY 278 mosm/kg (275-300); CREATININE - SERUM 0.8 mg/dL (0.6-1.3); GLUCOSE 260 mg/dL (74-106); eGFR NON AFRICAN AMERICAN 76 mL/min (90-120)
[2017-05-29 08:29] LABS: POTASSIUM - SERUM 2.8 mmol/L (3.5-5.1)
[2017-05-29 12:27] VITALS: BP 125/81
[2017-05-29 14:41] VITALS: BMI 20.6
[2017-05-29 16:51] VITALS: BP 141/72
[2017-05-29 20:51] VITALS: BP 148/88
[2017-05-30 05:44] LABS: BASOPHILS 0.3 % (0-2); EOSINOPHILS 2.4 % (0-7); HEMOGLOBIN 8.5 g/dL (12-16); LYMPHOCYTES 47.6 % (15-50); MCH 22.4 pg (26.0-34.0); MCHC 30.4 g/dL (31.0-37.0); MCV 73.7 fL (80.0-100.0); MEAN PLATELET VOLUME 10.2 fL (7.4-10.4); MONOCYTES 9.6 % (2-11); NEUTROPHILS 40.1 % (40-80); PLATELET COUNT 177 10x3/uL (130-400); RDW 16.8 % (11.5-14.5); WBC 6.4 10x3/uL (4.8-10.8)
[2017-05-30 05:53] VITALS: BP 111/68
[2017-05-30 06:05] LABS: ALBUMIN 2.2 g/dL (3.4-5.0); ALKALINE PHOSPHATASE 93 U/L (46-116); ALT (SGPT) 35 U/L (10-68); BILIRUBIN - INDIRECT 0.32 mg/dL (0.00-1.00); BILIRUBIN - TOTAL 0.52 mg/dL (0.2-1.3); CALC OSMOLALITY 278 mosm/kg (275-300); CALCIUM 7.8 mg/dL (8.5-10.1); CARBON DIOXIDE 23.4 mmol/L (21.0-32.0); CHLORIDE - SERUM 104 mmol/L (98-107); CREATININE - SERUM 0.8 mg/dL (0.6-1.3); GLUCOSE 225 mg/dL (74-106); PROTEIN - SERUM 6.2 g/dL (6.4-8.2); SODIUM 137 mmol/L (136-145); UREA NITROGEN 8 mg/dL (7-18); eGFR NON AFRICAN AMERICAN 76 mL/min (90-120)
[2017-05-30 06:36] LABS: POTASSIUM - SERUM 2.7 mmol/L (3.5-5.1)
[2017-05-30 07:21] LABS: FOLATE (FOLIC ACID) - SERUM >20.0 ng/mL (>3.0)
[2017-05-30 08:44] VITALS: BP 130/81
[2017-05-30 10:36] VITALS: Ht 162.6 cm; Wt 54.4 kg
[2017-05-30] MEDS ORDERED: PROTONIX I40 MG/VIAL PO (11:46)
[2017-05-30 11:53] VITALS: BP 145/88
[2017-05-30 12:12] LABS: HEPATITIS C ANTIBODY >11.0 (0.0-0.9)
== END 2017-05-30 15:45 | disposition home or self-care (01) | DRG 378 ==
LOC: OBSVTIME → D.ER 13:55 → D.MS 18:10 → D.ER 18:10 → D.MS 18:10 → OBSVTIME 05-28 18:10 → EDSTATUS 05-29 15:00 → D.MS 05-29 16:19
PROVIDERS: Family Medicine; Internal Medicine Gastroenterology; Internal Medicine Nephrology
PROC: 0DB78ZX Excision of Stomach, Pylorus, Via Natural or Artificial Opening Endoscopic, Diagnostic (ICD-10-PCS; 2017-05-29)
PROC: 0DB98ZX Excision of Duodenum, Via Natural or Artificial Opening Endoscopic, Diagnostic (ICD-10-PCS; principal; 2017-05-29 15:00)
DX: K92.2 Gastrointestinal hemorrhage, unspecified (principal); D62 Acute posthemorrhagic anemia; K29.60 Other gastritis without bleeding; K44.9 Diaphragmatic hernia without obstruction or gangrene; K29.80 Duodenitis without bleeding; R07.89 Other chest pain; I25.10 Atherosclerotic heart disease of native coronary artery without angina pectoris; B18.2 Chronic viral hepatitis C; K74.60 Unspecified cirrhosis of liver; I34.0 Nonrheumatic mitral (valve) insufficiency

== ENCOUNTER 2017-06-10 17:43 | Emergency (ER) | payer MEDICAID ==
[2017-05-30 10:36] VITALS: BMI 20.6
[~2017-06-10 17:43] MED LIST changes: +GLUCOTROL ER2.5 MG PO; +LIPITOR80 MG PO; +MAG-OX 400 MG400 MG PO; +NORCO 7.5/325 T1 TA1 PO; +PROTONIX I40 MG/VIAL PO; +TOPROL XL25 MG PO; +TORSEMIDE20 MG PO; +ULTRAM50 MG PO; +ZOFRAN4 MG PO
[2017-06-10 18:41] LABS: BASOPHILS 0.1 % (0-2); EOSINOPHILS 1.2 % (0-7); HEMOGLOBIN 8.9 g/dL (12-16); IMMATURE GRANULOCYTES 0.3 % (0-5); LYMPHOCYTES 18.9 % (15-50); MCHC 29.7 g/dL (31.0-37.0); MCV 70.9 fL (80.0-100.0); MEAN PLATELET VOLUME 10.5 fL (7.4-10.4); MONOCYTES 5.9 % (2-11); NEUTROPHILS 73.6 % (40-80); PLATELET COUNT 218 10x3/uL (130-400); RBC 4.23 10x6/uL (4.00-5.40); RDW 18.1 % (11.5-14.5); WBC 14.5 10x3/uL (4.8-10.8)
[2017-06-10 18:57] LABS: ALBUMIN 2.7 g/dL (3.4-5.0); ALKALINE PHOSPHATASE 99 U/L (46-116); ALT (SGPT) 52 U/L (10-68); BILIRUBIN - TOTAL 0.76 mg/dL (0.2-1.3); CALCIUM 7.7 mg/dL (8.5-10.1); CARBON DIOXIDE 30.6 mmol/L (21.0-32.0); CHLORIDE - SERUM 94 mmol/L (98-107); PROTEIN - SERUM 7.6 g/dL (6.4-8.2); SODIUM 133 mmol/L (136-145); UREA NITROGEN 13 mg/dL (7-18); eGFR NON AFRICAN AMERICAN 59 mL/min (90-120)
[2017-06-10 19:00] LABS: CALC OSMOLALITY 268 mosm/kg (275-300); GLUCOSE 155 mg/dL (74-106)
[2017-06-10 19:01] LABS: POTASSIUM - SERUM 2.9 mmol/L (3.5-5.1)
[2017-06-10 19:08] LABS: CHOL - HDL RATIO 2.7 ratio (2.3-4.1); CHOLESTEROL, TOTAL 60 mg/dL (0-200); CKMB 0.5 U/L (0.0-3.6); CREATINE KINASE 49 UL (21-215); HDL CHOLESTEROL 22 mg/dL (32-96); LDL CHOLESTEROL 19 mg/dL (0-100); LDL-HDL RATIO 0.9 ratio (1.5-3.5); TRIGLYCERIDE 96 mg/dL (30-200); TROPONIN-I 0.034 ng/mL (0.000-0.060)
== END 2017-06-10 20:34 | disposition home or self-care (01) ==
LOC: D.ER 17:43
PROVIDERS: Emergency Medicine
DX: R07.9 Chest pain, unspecified (principal); E11.9 Type 2 diabetes mellitus without complications; Z79.4 Long term (current) use of insulin; J44.9 Chronic obstructive pulmonary disease, unspecified; E87.6 Hypokalemia; D64.9 Anemia, unspecified

== ENCOUNTER 2017-08-19 10:30 | Emergency (ER) | payer MEDICAID ==
[2017-05-30 10:36] VITALS: BMI 20.6
[2017-08-19 12:07] LABS: BASOPHILS 0.8 % (0-2); EOSINOPHILS 3.8 % (0-7); HEMATOCRIT 38.2 % (36.0-48.0); HEMOGLOBIN 11.8 g/dL (12-16); IMMATURE GRANULOCYTES 0.2 % (0-5); LYMPHOCYTES 45.8 % (15-50); MCH 23.1 pg (26.0-34.0); MCHC 30.9 g/dL (31.0-37.0); MCV 74.9 fL (80.0-100.0); MONOCYTES 8.8 % (2-11); NEUTROPHILS 40.6 % (40-80); PLATELET COUNT 135 10x3/uL (130-400); RDW 19.9 % (11.5-14.5)
[2017-08-19 12:34] LABS: APPEARANCE CLOUDY (CLEAR); BILIRUBIN NEGATIVE (NEGATIVE); COLOR YELLOW (YELLOW); GLUCOSE NEGATIVE (NEGATIVE); KETONE NEGATIVE (NEGATIVE); NITRITE NEGATIVE (NEGATIVE); PROTEIN 1+ mg/dL (NEGATIVE); SPECIFIC GRAVITY 1.015 (1.005-1.020); UROBILINOGEN NORMAL (NORMAL)
[2017-08-19 12:36] LABS: WHITE CELLS - URINE 25-50 /hpf (0-5)
[2017-08-19 12:37] LABS: BACTERIA MODERATE /hpf (NONE SEEN); EPITHELIAL CELLS 0-5 /hpf (0-5); GRANULAR CAST 0-5 /lpf (NONE SEEN); RED CELLS - URINE 0-5 /hpf (0-5)
[2017-08-19 12:40] LABS: ALBUMIN 2.9 g/dL (3.4-5.0); ALKALINE PHOSPHATASE 142 U/L (46-116); ALT (SGPT) 60 U/L (10-68); CALC OSMOLALITY 282 mosm/kg (275-300); CALCIUM 8.6 mg/dL (8.5-10.1); CARBON DIOXIDE 35.4 mmol/L (21.0-32.0); CHLORIDE - SERUM 93 mmol/L (98-107); CREATINE KINASE 115 UL (21-215); CREATININE - SERUM 1.2 mg/dL (0.6-1.3); GLUCOSE 193 mg/dL (74-106); PROTEIN - SERUM 8.7 g/dL (6.4-8.2); SODIUM 135 mmol/L (136-145); TROPONIN-I 0.046 ng/mL (0.000-0.060); UREA NITROGEN 36 mg/dL (7-18); eGFR NON AFRICAN AMERICAN 48 mL/min (90-120)
[2017-08-19 12:44] LABS: UDS - AMPHET NEGATIVE QUAL (NEGATIVE); UDS - BARB NEGATIVE QUAL (NEGATIVE); UDS - BENZO POSITIVE QUAL (NEGATIVE); UDS - COCAINE NEGATIVE QUAL (NEGATIVE); UDS - OPIATE POSITIVE QUAL (NEGATIVE); UDS - PCP POSITIVE QUAL (NEGATIVE); UDS - THC POSITIVE QUAL (NEGATIVE)
[2017-08-19 12:46] LABS: POTASSIUM - SERUM 2.8 mmol/L (3.5-5.1)
== END 2017-08-19 15:51 | disposition home or self-care (01) ==
LOC: D.ER 10:30
PROVIDERS: Family Medicine
DX: S30.0XXA Contusion of lower back and pelvis, initial encounter (principal); W19.XXXA Unspecified fall, initial encounter; Y93.89 Activity, other specified; Y92.019 Unspecified place in single-family (private) house as the place of occurrence of the external cause; S16.1XXA Strain of muscle, fascia and tendon at neck level, initial encounter; E87.6 Hypokalemia; N39.0 Urinary tract infection, site not specified; F17.200 Nicotine dependence, unspecified, uncomplicated; J44.9 Chronic obstructive pulmonary disease, unspecified

== ENCOUNTER 2017-08-23 04:51 | Inpatient (IN) | payer MEDICAID ==
[2017-08-23] VITALS (55 sets, daily range): BP systolic 42–139; BP diastolic 26–87; Ht 162.6 cm; Wt 59.1 kg
[~2017-08-23] VITALS: Ht 162.6 cm; Wt 59.1 kg
--- NOTE | ~2017-08-23 | HEMODYNAMI ---
PATIENT:IDALIA DALAL MEDICAL RECORD: [id number] : 51 LOCATION:[facility] D.2308 ADMISSION DATE: 08/23/17 Generatedon:08/23/20178:47 Patient name: IDALIA DALAL Patient #: [id number] SSN: [id number] : 1955 Date of study: 08/23/2017 Page: Of Hemodynamic Procedure Report Patient Data Patient Demographics Procedure consent was obtained First Name: IDALIA Gender: Female Last Name: KATLIN : 1955 [facility] Initial: K Age: 62 year(s) Patient #: [id number] Race: SSN: [id number] Additional ID: [id number] Contact details Address: [address] [place] [address] State: [place] City: [facility] Zip code: [address] Past Medical History History of disease Date Diagnosis Comments CAD Allergies Allergen Reaction Date Comments Reported Codeine 05/13/2014 Other allergy 03/29/2015 BUSPAR, LYRICA IMMUNIZATIONS Other allergy 05/17/2016 Iodine, Bispar, Lyrica Iodine 11/30/2016 Codeine 11/30/2016 Other allergy 11/30/2016 BUSPIRONE (BUSPAR), INFLUENZA VIRUS VACCINE, PNEUMOCOCCAL VACCINE, DIAZAPAM, PREGABALIN (LYRICA) Admission Admission Data Admission Date: 08/23/2017 Admission Time: 6:43 Room #: D.2308 Procedure Procedure Types Cath Procedure Diagnostic Procedure LHC LHC w/Coronaries PCI Procedure AMI/SVG/ENFORCEMENT SAFETY OFFICER PTCA or Stent AMI-BMS/SAMANTHA Initial Procedure Description Procedure Date Procedure Date: 08/23/2017 Procedure Start Time: 7:58 Procedure End Time: 8:47 Procedure Staff Name Function Keon Salmon MD Performing Physician Glenny White RT Scrub Gabrielle Weathers RN Nurse Angelica Douglas RT Monitor Burak Nieto RT Distance Education Coordinator Procedure Data Cath Procedure Fluoroscopy Diagnostic fluoroscopy Total fluoroscopy Time: 4.6 time: 4.6 min min Diagnostic fluoroscopy Total fluoroscopy dose: 471 dose: 471 mGy mGy Contrast Material Contrast Material Type Amount (ml) Isovue 300 90 Entry Location Entry Primary Successful Side Size Upsize Upsize Entry Closure Succes sful Closure Location (Fr) 1 (Fr) 2 (Fr) Remarks Device Remarks Femoral Right 6 Fr Sheath vein Short sutured in place Femoral Right 6 Fr Sheath artery Short sutured in place Estimated blood loss: 10 ml Diagnostic catheters Device Type Used For End Catheter Placement MULTIPACK JL 4.0 5Fr Left Coronary catheter Angiography MULTIPACK 3DRC 5Fr Right Coronary catheter Angiography MULTIPACK Pigtail 5 Fr LV Angiography catheter Procedure Complications No complications Procedure Medications Medication Administration Route Dosage Oxygen 100 Lidocaine 2% added to field 20 Heparin Flush Bag added to field 2 bags (1000units/500ml NS) Levophed (8mg/250ml I.V. drip 30 mcg/min D5W) Neosynephrine I.V. 180 mcg/min Dopamine I.V. drip 20 mcg/kg/min (400mg/250ml D5W) Ativan I.V. 1 mg Heparin Bolus I.V. 5000 units Hemodynamics Rest Heart Rate: 109 (bpm) Pressure Samples Time Site Value (mmHg) Purpose Heart Use Rate(bpm) 8:12 LV 110/7,41 EDP 107 Gradients Valve Time Site Site Mean SEP/DFP Peak To Heart Use 1 2 (mmHg) (sec/min) Peak Rate (mmHg) (bpm) Aortic 8:13 LV AO 107 Snapshots Pre Cath Intra NCS Post Cath Vital Signs Time Heart Resp SPO2 etCO2 NIBP (mmHg) Rhythm Pain Sedation Rate (ipm) (%) (mmHg) Status Level (bpm) 7:52:35 107 24 85 0 100/44(79) NSR 0 (11) 3(A) , No pain 7:57:10 108 22 96 0 106/51(88) NSR 0 (11) 3(A) , No pain 8:02:35 109 30 0 109/46(76) NSR 0 (11) 3(A) , No pain 8:07:18 105 26 0 94/40(75) NSR 0 (11) 3(A) , No pain 8:11:50 105 18 0 98/55(80) NSR 0 (11) 3(A) , No pain 8:20:37 103 30 73 0 90/45(74) NSR 0 (11) 3(A) , No pain 8:26:29 105 13 65 0 150/88(130) NSR 0 (11) 3(A) , No pain 8:32:05 107 28 67 0 96/43(76) NSR 0 (11) 3(A) , No pain 8:36:38 106 27 0 104/58(91) NSR 0 (11) 3(A) , No pain 8:41:16 107 29 80 0 109/37(73) NSR 0 (11) 3(A) , No pain 8:45:55 108 28 74 0 107/36(77) NSR 0 (11) 3(A) , No pain Medications Time Medication Route Dose Verified Delivered Reason Notes Effectiveness by by 7:53:52 Oxygen intubation 100% Keon Buffie unresponsive ventilator Luis Antonio Weathers RN 7:54:05 Lidocaine 2% added to 20ml vial Keon Keon for local field Luis Antonio Salmon MD anesthetic 7:55:00 Heparin Flush added to 2 bags Keon Keon used for Bag field Luis Antonio Salmon MD procedure (1000units/500ml NS) 7:57:12 Levophed I.V. drip 30 mcg/min Keon Buffie For hypotensio n continued (8mg/250ml D5W) Luis Antonio Weathers RN from e r 7:58:22 Dopamine I.V. drip 20 Keon Buffie For hypotensio n continued (400mg/250ml mcg/kg/min Luis Antonio Weathers RN from e r D5W) 7:58:22 Neosynephrine I.V. 180 Keon Buffie For hypotensio n continued mcg/min Luis Antonio Weathers RN from er 8:06:59 Ativan I.V. 1 mg Buffie Buffie for sedation Sarahy Weathers RN 8:17:00 Heparin Bolus I.V. 5000 units Buffie Buffie for Sarahy Weathers RN anticoagulation Procedure Log Time Note 7:34:08 Gabrielle Weathers RN sent for patient. Start room use. 7:34:09 Time tracking: Regular hours 7:34:15 Plan of Care:Hemodynamics will remain stable., Cardiac rhythm will remain stable., Comfort level will be maintained., Respiratory function will remain adequate., Patient/ family verbilizes understanding of procedure., Procedure tolerated without complication., Recovers from procedure without complications.. 7:45:05 Patient received from ED to CCL 1 Alert and oriented. Tansferred to table in Supine position. 7:45:06 Warm blankets applied, and demetrius hugger turned on for patient comfort. 7:45:07 Correct patient and procedure confirmed by team. 7:45:08 Signed procedure consent form obtained from patient. 7:45:09 ECG and BP/O2 sat monitors applied to patient. 7:45:10 Full Disclosure recording started 7:50:31 Rhythm: sinus tachycardia 7:50:37 H&P Date Dictated: 08/23/2017 Emergent; H&P N/A. 7:50:38 Pre-procedure instructions explained to patient. 7:50:38 Pre-op teaching completed and patient verbalized understanding. 7:50:40 Family in waiting room. 7:50:44 Patient NPO since Midnight. 7:51:08 Is patient on blood thinner?Yes 7:51:12 ACC The patient was administered the following blood thiners within the last 24 hours: ACCPlavix 7:51:30 Vital chart was started 7:51:46 Is the patient allergic to Iodine/contrast media? Yes. 7:51:49 Was the patient premedicated? Yes 7:52:18 Pt intubated, and unable to answer questions. Pt arrived emergently. 7:52:24 Pre procedure: right dorsailis pedis pulse 1+ Palpable, but thready & weak; easily obliterated 7:52:29 Patient pain scale 0/10 ?. 7:53:11 Pt has bilateral IV lines in her feet. 7:53:15 Lab results completed and on chart. 7:53:21 Right groin area was prepped with chlora-prep and draped in sterile fashion 7:53:25 Alarms reviewed by R. N. 7:53:25 Sharps counted by scrub and verified by R.N. 7:53:27 --------ALL STOP TIME OUT------ 7:53:30 Right groin site verified by team. 7:53:33 Physical assessment completed. ASA score P 4 - A patient with severe systemic disease that is a constant threat to life as per Keon Salmon MD. 7:53:38 Sedation plan: IV Moderate Sedation Medication:Versed, Fentanyl 7:53:52 Oxygen 100% ventilator intubation was administered by Gabrielle Weathers RN; unresponsive; 7:54:05 Lidocaine 2% 20ml vial added to field was administered by Keon Salmon MD; for local anesthetic; 7:55:00 Heparin Flush Bag (1000units/500ml NS) 2 bags added to field was administered by Keon Salmon MD; used for procedure; 7:55:51 Final Timeout: patient, procedure, and site verified with staff and physician. All members of the team are in agreement. 7:56:03 ACIST Syringe (95714) opened to sterile field. 7:56:04 Bag Decanter (2002S) opened to sterile field. 7:56:04 Medline Cath Pack ([id number]) opened to sterile field. 7:56:05 DIAGNOSTIC WIRE .035 260cm J wire (103201) opened to sterile field. 7:56:06 ACIST Hand Control (79152) opened to sterile field. 7:56:07 ACIST Manifold (69495) opened to sterile field. 7:56:07 DIAGNOSTIC Multipack 5Fr catheter set (JE8568) opened to sterile field. 7:56:08 Tegaderm 4 x 4 (1626W) opened to sterile field. 7:56:09 PERCUTANEOUS ENTRY 19GA needle opened to sterile field. 7:56:23 SHEATH 6Fr Prelude ([id number]) opened to sterile field. 7:56:42 Zero performed for pressure channel P1 7:57:12 Levophed (8mg/250ml D5W) 30 mcg/min I.V. drip was administered by Gabrielle Weathers RN; For hypotension; continued from er 7:58:00 Patient arrived with IVs in Right & Left foot. 7:58:19 Procedure started. 7:58:22 Neosynephrine 180 mcg/min I.V. was administered by Gabrielle Weathers RN; For hypotension; continued from er 7:58:22 Dopamine (400mg/250ml D5W) 20 mcg/kg/min I.V. drip was administered by Gabrielle Weathers RN; For hypotension; continued from er 7:58:49 Local anesthetic to right femoral artery with Lidocaine 2% by Keon Salmon MD.INITIAL ACCESS ONLY 7:59:59 Baseline sample Acquired. 8:02:34 SHEATH Prelude 6Fr 0.035 (YHD-5K-86-035) opened to sterile field. 8:03:02 A 6 Fr Short sheath was inserted into the Right Femoral vein 8:05:47 pt having seizure activity on procedure table order for ativan. 8:06:59 Ativan 1 mg I.V. was administered by Gabrielle Weathers RN; for sedation; 8:07:02 A 6 Fr Short sheath was inserted into the Right Femoral artery 8:07:20 Use device set Multipack Set 8:08:17 A MULTIPACK JL 4.0 5Fr catheter was advanced over the wire and used for Left Coronary Angiography. 8:09:11 Catheter removed. 8:09:53 A MULTIPACK 3DRC 5Fr catheter was advanced over the wire and used for Right Coronary Angiography. 8:11:18 Catheter removed. 8:11:26 A MULTIPACK Pigtail 5 Fr catheter was advanced over the wire and used for LV Angiography. 8:12:42 LV gram done using SERNA 8:12:43 LV hemodynamics recorded. 8:12:45 Injector settings: Ml/sec: 10, Volume: 20, 8:12:51 Use device set SALMON PCI 8:12:53 BMW 300cm Lima 2 J wire ([id number]) opened to sterile field. 8:12:57 INFLATOR Merit BasixCompak (DD0340) opened to sterile field. 8:12:58 TUBING High Pressure Extension Tubing (CNS Response) (MR5918L) opened to sterile field. 8:13:04 GUIDE 6FR 3DRC catheter ([id number]) opened to sterile field. 8:13:23 EF : 20 % 8:13:27 Catheter removed. 8:14:24 6 Fr 3DRC guide catheter was inserted over the wire 8:17:00 Heparin Bolus 5000 units I.V. was administered by Gabrielle Weathers RN; for anticoagulation; 8:17:19 BMW wire advanced. 8:21:18 pt having more seizure activity, tonic clonic in nature. lasting less than one minute. suctioning as needed 8:21:40 Inflation Number: 1 A INTEGRITY RX 3.0 x 30 stent ([id number]) was prepped and advanced across the Mid RCA. The stent was deployed at 13 GONZALEZ for 0:16 (min:sec). 8:22:44 Stent catheter was removed intact over wire. 8:22:47 Wire removed. 8:22:49 Guide catheter removed. 8:26:34 Sheath removed intact; hemostasis achieved with Sheath sutured in place to the Right Femoral artery. 8::41 Sheath removed intact; hemostasis achieved with Sheath sutured in place to the Right Femoral vein. 8:26:43 Procedure ended.(Physican Out) 8:27:13 Fluoroscopy time 04.60 minutes. 8::17 Fluoroscopy dose: 471 mGy 8::17 Flurop Dose total: 471 8:27:20 Contrast amount:Isovue 300 90ml. 8:27:22 Sharps counted by scrub and verified by R.N. 8:27:23 Insertion/operative site no bleeding no hematoma. 8:27:29 Post-op/insertion site Right Femoral artery dressed using a 4 x 4 and Tegaderm. 8:27:36 Post right femoral artery:stable, clean and dry 8:27:38 Post Procedure Pulses reassessed and unchanged 8:27:47 Post-procedure physical assessment completed. ASA score P 4 - A patient with severe systemic disease that is a constant threat to life as per Keon Salmon MD. 8:28:02 Post procedure rhythm: unchanged. 8:28:05 Estimated blood loss: 10 ml 8:28:07 Post procedure instruction explained to patient.Patient verbalizes understanding. 8:28:08 Patient needs reinforcement of post procedure teaching. 8:28:25 Procedure type changed to Cath procedure, Diagnostic procedure, LHC, LHC w/Coronaries, PCI procedure, AMI/SVG/ENFORCEMENT SAFETY OFFICER PTCA or Stent, AMI-BMS/SAMANTHA Initial 8:28:52 Procedure Complication : No complications 8:29:00 See physician's report for complete and final results. 8:29:17 2-0 Silk 685H opened to sterile field. 8:32:41 Tegaderm 4 x 4 (1626W) opened to sterile field. 8:32:46 Procedure and supply charges have been captured, reviewed, submitted and are correct. 8:33:34 ART Line (PX260) opened to sterile field. 8:46:53 Vital chart was stopped 8:46:56 Report given to ICU. 8:46:59 Patient transfered to ICU with Bed. 8:47:03 Procedure ended. 8:47:03 Full Disclosure recording stopped 8:47:07 End room use (Document Last) Intervention Summary Intervention Notes Time ActionType Lesion and Equipment Action# Pressure Duration Attributes Used 8:21:40 Place stent Mid RCA INTEGRITY RX 1 13 00:16 3.0 x 30 stent ([id number]) Device Usage Item Name Manufacture Quantity Catalog Hospital Part Current M inimal Lot# / Number Charge Number Stock Stock Serial# Code ACIST Syringe Acist 1 [id number] 109555 088008 770883 2 0 (45327) Medical Systems Inc Bag Decanter Microtek 1 054363 85945 527012 5 () Medical Inc. Medline Cath Cardinal 1 [id number] 582247 51288 502857 5 Pack Health ([id number]) DIAGNOSTIC WIRE St Fazal 1 520466 785502 548125 563953 3 0 .035 260cm J wire (140658) ACIST Hand Acist 1 03731 817125 689264 024738 5 Control (90673) Medical Systems [employer] ACIST Manifold Acist 1 43407 001759 651116 671434 5 (50968) Medical Systems Inc DIAGNOSTIC Cardinal 1 [id number] 601713 33315 117283 3 0 Multipack 5Fr Health catheter set (TY5739) Tegaderm 4 x 4 3M 2 1626W 101750 650709 856211 5 (1626W) PERCUTANEOUS Cook Medical 1 G77184 513309 107199 5 ENTRY 19GA needle SHEATH 6Fr Merit 1 [id number] 379957 064701 110617 5 Prelude Medical ([id number]) SHEATH Prelude Merit 1 [id number]-0A-52-35 036311 5265568 896021 5 6Fr 0.035 Medical (MFM-0J-10-035) MULTIPACK JL Cardinal 1 187563 5 4.0 5Fr Health catheter MULTIPACK 3DRC Cardinal 1 885037 5 5Fr catheter Health MULTIPACK Cardinal 1 559723 5 Pigtail 5 Fr Health catheter BMW 300cm Dan 1 [id number] 204111 052933 736205 5 Lima 2 J Vascular wire ([id number]) INFLATOR Merit Merit 1 BR6031 696338 264218 315464 1 5 DriveHQ Medical (ND8560) TUBING High Merit 1 [id number] 700346 41192 196068 1 0 Pressure Medical Extension Tubing (Salmon) ([id number]) GUIDE 6FR 3DRC Medtronic 1 [id number] 344033 354959 194299 1 catheter (VX31MOE) INTEGRITY RX Medtronic 1 [id number] 464511 312577 048544 5 [id number] 3.0 x 30 stent ([id number]) 2-0 Silk 685H Ethicon 1 685H 993017 76370 420499 5 ART Line Moran 1 PX260 826030 47423 556541 5 (PX260) Lifesciences Signature Audit [place] Stage Time Signature Unsigned Intra-Procedure 08/23/2017 Angelica 8:47:17 AM Counts RT(R) Signatures Monitor : Angelica Signature : Counts RT Date : Time : [place] [address] [address] [facility] [place] [address]
[2017-08-23 05:59] LABS: INR 1.52 (0.85-1.17); PROTIME 17.8 SECONDS (11.6-15.0)
[2017-08-23 06:00] LABS: APTT 61.7 SECONDS (22.8-39.4)
[2017-08-23 06:08] LABS: HEMATOCRIT 29.7 % (36.0-48.0); HEMOGLOBIN 8.6 g/dL (12-16); MCV 79.4 fL (80.0-100.0); PLATELET COUNT 130 10x3/uL (130-400); RBC 3.74 10x6/uL (4.00-5.40); RDW 19.6 % (11.5-14.5); WBC 21.1 10x3/uL (4.8-10.8)
[2017-08-23 06:32] LABS: ALKALINE PHOSPHATASE 132 U/L (46-116); ALT (SGPT) 71 U/L (10-68); BILIRUBIN - TOTAL 0.32 mg/dL (0.2-1.3); CALCIUM 9.4 mg/dL (8.5-10.1); CARBON DIOXIDE 18.2 mmol/L (21.0-32.0); CHLORIDE - SERUM 95 mmol/L (98-107); CKMB 5.5 U/L (0.0-3.6); CREATINE KINASE 155 UL (21-215); CREATININE - SERUM 1.6 mg/dL (0.6-1.3); MAGNESIUM - SERUM 2.2 mg/dL (1.8-2.4); PROTEIN - SERUM 6.3 g/dL (6.4-8.2); SODIUM 140 mmol/L (136-145); UREA NITROGEN 27 mg/dL (7-18); eGFR NON AFRICAN AMERICAN 34 mL/min (90-120)
[2017-08-23 06:35] LABS: CALC OSMOLALITY 292 mosm/kg (275-300); GLUCOSE 257 mg/dL (74-106)
[2017-08-23 06:37] LABS: POTASSIUM - SERUM 2.3 mmol/L (3.5-5.1); TROPONIN-I 1.211 ng/mL (0.000-0.060)
[2017-08-23 07:04] LABS: EOSINOPHILS 1 % (0-7); LYMPHOCYTES 64 % (15-50); MONOCYTES 5 % (2-11); NEUTROPHILS 26 % (40-80)
[2017-08-23 07:05] LABS: PLATELET ESTIMATE NORMAL
[2017-08-23 13:22] LABS: CKMB 65.6 U/L (0.0-3.6)
[2017-08-23 13:23] LABS: CREATINE KINASE 1435 UL (21-215)
[2017-08-23 13:25] LABS: POTASSIUM - SERUM 2.3 mmol/L (3.5-5.1); TROPONIN-I 18.866 ng/mL (0.000-0.060)
== END 2017-08-24 01:40 | DRG 249 ==
LOC: D.ER 04:51 → D.ICU 06:43
PROVIDERS: Emergency Medicine; Internal Medicine Cardiovascular Disease
PROC: B548ZZA Ultrasonography of Superior Vena Cava, Guidance (ICD-10-PCS; 2017-08-23)
PROC: 4A023N7 Measurement of Cardiac Sampling and Pressure, Left Heart, Percutaneous Approach (ICD-10-PCS; 2017-08-23)
PROC: B2111ZZ Fluoroscopy of Multiple Coronary Arteries using Low Osmolar Contrast (ICD-10-PCS; 2017-08-23)
PROC: B2151ZZ Fluoroscopy of Left Heart using Low Osmolar Contrast (ICD-10-PCS; 2017-08-23)
PROC: 5A12012 Performance of Cardiac Output, Single, Manual (ICD-10-PCS; 2017-08-23)
PROC: 0BH17EZ Insertion of Endotracheal Airway into Trachea, Via Natural or Artificial Opening (ICD-10-PCS; 2017-08-23)
PROC: 5A1935Z Respiratory Ventilation, Less than 24 Consecutive Hours (ICD-10-PCS; 2017-08-23)
PROC: 0D9670Z Drainage of Stomach with Drainage Device, Via Natural or Artificial Opening (ICD-10-PCS; 2017-08-23)
PROC: 0T9B70Z Drainage of Bladder with Drainage Device, Via Natural or Artificial Opening (ICD-10-PCS; 2017-08-23)
PROC: 02HV33Z Insertion of Infusion Device into Superior Vena Cava, Percutaneous Approach (ICD-10-PCS; principal; 2017-08-23 10:30)
PROC: 02703DZ Dilation of Coronary Artery, One Artery with Intraluminal Device, Percutaneous Approach (ICD-10-PCS; 2017-08-23 10:30)
DX: I21.19 ST elevation (STEMI) myocardial infarction involving other coronary artery of inferior wall (principal); I50.20 Unspecified systolic (congestive) heart failure; N17.9 Acute kidney failure, unspecified; G93.1 Anoxic brain damage, not elsewhere classified; R57.0 Cardiogenic shock; I25.10 Atherosclerotic heart disease of native coronary artery without angina pectoris; K74.60 Unspecified cirrhosis of liver; B19.20 Unspecified viral hepatitis C without hepatic coma; I11.0 Hypertensive heart disease with heart failure; E11.40 Type 2 diabetes mellitus with diabetic neuropathy, unspecified; K21.9 Gastro-esophageal reflux disease without esophagitis; D50.9 Iron deficiency anemia, unspecified; E87.6 Hypokalemia; I34.0 Nonrheumatic mitral (valve) insufficiency; J44.9 Chronic obstructive pulmonary disease, unspecified; Z78.1 Physical restraint status; Z86.73 Personal history of transient ischemic attack (TIA), and cerebral infarction without residual deficits; Z95.5 Presence of coronary angioplasty implant and graft; Z87.891 Personal history of nicotine dependence